=== PATIENT | female | born 1960 | race Caucasian/White ===

== ENCOUNTER 2018-08-28 15:25 | Emergency (ER) | payer OTHER ==
--- OUTSIDE RECORDS SUMMARY | 2018-08-28 15:28 | XMS REPORT | Clinical Summary ---
:1960 Author Organization [facility] Address [address] [place] [address] Care Team Providers Name Role Phone Samir Read MD Primary Care Provider Allergies Active Allergy Reactions Severity Noted Date Comments Iodine 11/26/2017 Methotrexate 11/26/2017 Sulfa (Sulfonamide Antibiotics) 11/26/2017 Medications Medication Sig Dispensed Refills Start End Status Date Date DULoxetine (CYMBALTA) 60 Take 1 capsule 30 capsule 11 11/27/19 Active MG capsuleIndications: (60 mg total) 18 019 Sjogren's syndrome with by mouth keratoconjunctivitis daily. sicca (HCC), Other chronic pain, Chronic left lumbar radiculopathy, Obesity (BMI 35.0-39.9 without comorbidity), Gastroesophageal reflux disease without esophagitis, Primary insomnia hydroxychloroquine Take 200 mg by 0 Active (PLAQUENIL) 200 mg mouth 2 (two) tablet times a day. diltiazem CD (CardIZEM Take 240 mg by 11 03/15/20 Active CD) 240 MG 24 hr capsule mouth daily. 18 traMADol (ULTRAM) 50 mg Take 50 mg by 0 Active tablet mouth every 6 (six) hours as needed for moderate pain. cyclobenzaprine TAKE 1 TABLET 2 03/02/20 Active (FLEXERIL) 10 mg tablet (10 MG TOTAL) 18 BY MOUTH NIGHTLY NEEDED FOR MUSCLE SPASMS FOR UP TO 90 DAYS. ondansetron ODT Take 1 tablet 21 tablet 0 05/04/20 Active (ZOFRAN-ODT) 4 MG sublingual 18 disintegrating tablet every 8 hrs for nausea x 7 days meloxicam (MOBIC) 15 mg TAKE 1 TABLET 90 tablet 1 06/02/20 Active tabletIndications: BY MOUTH EVERY 18 Sjogren's syndrome with DAY keratoconjunctivitis sicca (HCC), Other chronic pain, Chronic left lumbar radiculopathy, Obesity (BMI 35.0-39.9 without comorbidity), Gastroesophageal reflux disease without esophagitis, Primary insomnia zolpidem CR (AMBIEN CR) TAKE 1 TABLET 30 tablet 0 08/11/19 Active 12.5 MG CR BY MOUTH EVERY tabletIndications: DAY AT BEDTIME Sjogren's syndrome with NEEDED FOR keratoconjunctivitis SLEEP sicca (HCC), Other chronic pain, Chronic left lumbar radiculopathy, Obesity (BMI 35.0-39.9 without comorbidity), Gastroesophageal reflux disease without esophagitis, Primary insomnia diclofenac (VOLTAREN) 1 APPLY TO 100 g 2 08/12/19 Active % gelIndications: AFFECTED AREA 19 Sjogren's syndrome with 4 TIMES A DAY keratoconjunctivitis sicca (HCC), Other chronic pain, Chronic left lumbar radiculopathy, Obesity (BMI 35.0-39.9 without comorbidity), Gastroesophageal reflux disease without esophagitis, Primary insomnia ALPRAZolam (XANAX) 1 MG TAKE 1 TABLET 60 tablet 0 08/27/19 Active tablet BY MOUTH TWICE A DAY NEEDED FOR ANXIETY ALPRAZolam (XANAX) 1 MG Take 1 mg by 0 Discontinued tablet mouth. 1 tab 018 twice daily cyclobenzaprine Take 10 mg by 0 Discontinued (FLEXERIL) 10 mg tablet mouth. 018 hydroxychloroquine Take 200 mg by 0 Discontinued (PLAQUENIL) 200 mg mouth. 018 tablet hydroxychloroquine Take 1 tablet 60 tablet 2 11/27/19 Discontinued (PLAQUENIL) 200 mg (200 mg total) 018 tabletIndications: by mouth 2 Sjogren's syndrome with (two) times a keratoconjunctivitis day for 90 sicca (HCC), Other days. chronic pain, Chronic left lumbar radiculopathy, Obesity (BMI 35.0-39.9 without comorbidity), Gastroesophageal reflux disease without esophagitis, Primary insomnia cyclobenzaprine Take 1 tablet 30 tablet 2 11/27/19 Discontinued (FLEXERIL) 10 mg (10 mg total) 18 018 tabletIndications: by mouth Sjogren's syndrome with nightly as keratoconjunctivitis needed for sicca (HCC), Other muscle spasms chronic pain, Chronic for up to 90 left lumbar days. radiculopathy, Obesity (BMI 35.0-39.9 without comorbidity), Gastroesophageal reflux disease without esophagitis, Primary insomnia ALPRAZolam (XANAX) 1 MG Take 1 tablet 60 tablet 1 11/27/19 tabletIndications: (1 mg total) 18 018 Sjogren's syndrome with by mouth 2 keratoconjunctivitis (two) times a sicca (HCC), Other day as needed chronic pain, Chronic for anxiety left lumbar for up to 60 radiculopathy, Obesity days. 1 tab (BMI 35.0-39.9 without twice daily comorbidity), Gastroesophageal reflux disease without esophagitis, Primary insomnia zolpidem CR (AMBIEN CR) Take 1 tablet 30 tablet 1 11/27/19 Discontinued 12.5 MG CR (12.5 mg 18 018 tabletIndications: total) by Sjogren's syndrome with mouth nightly keratoconjunctivitis as needed for sicca (HCC), Other sleep for up chronic pain, Chronic to 60 days. left lumbar radiculopathy, Obesity (BMI 35.0-39.9 without comorbidity), Gastroesophageal reflux disease without esophagitis, Primary insomnia pilocarpine (SALAGEN, Take 1 tablet 90 tablet 11 11/27/19 Discontinued PILOCARPINE,) 5 MG (5 mg total) 18 018 tabletIndications: by mouth 3 Sjogren's syndrome with (three) times keratoconjunctivitis a day. sicca (HCC), Other chronic pain, Chronic left lumbar radiculopathy, Obesity (BMI 35.0-39.9 without comorbidity), Gastroesophageal reflux disease without esophagitis, Primary insomnia diclofenac (VOLTAREN) 1 Apply 100 g 2 11/27/19 Discontinued % gelIndications: topically 4 019 Sjogren's syndrome with (four) times a keratoconjunctivitis day. sicca (HCC), Other chronic pain, Chronic left lumbar radiculopathy, Obesity (BMI 35.0-39.9 without comorbidity), Gastroesophageal reflux disease without esophagitis, Primary insomnia traMADol (ULTRAM) 50 mg Take 1 tablet 120 tablet 1 11/27/19 tabletIndications: (50 mg total) 18 018 Sjogren's syndrome with by mouth every keratoconjunctivitis 6 (six) hours sicca (HCC), Other as needed for chronic pain, Chronic moderate pain left lumbar for up to 60 radiculopathy, Obesity days. (BMI 35.0-39.9 without comorbidity), Gastroesophageal reflux disease without esophagitis, Primary insomnia meloxicam (MOBIC) 15 mg Take 1 tablet 30 tablet 1 11/27/19 Discontinued tabletIndications: (15 mg total) 18 018 Sjogren's syndrome with by mouth daily keratoconjunctivitis for 60 days. sicca (HCC), Other chronic pain, Chronic left lumbar radiculopathy, Obesity (BMI 35.0-39.9 without comorbidity), Gastroesophageal reflux disease without esophagitis, Primary insomnia predniSONE (DELTASONE) 5 Take 1 tablet 20 tablet 0 11/27/19 mg tablet (5 mg total) 18 018 by mouth take as directed (Take 4-3-2-1 tabs in am with food for 2-2-2-2 days each dose) for up to 8 days. zolpidem CR (AMBIEN CR) TAKE 1 TABLET 30 tablet 0 01/28/20 Discontinued 12.5 MG CR BY MOUTH AT 18 018 tabletIndications: BEDTIME Sjogren's syndrome with NEEDED FOR keratoconjunctivitis SLEEP sicca (HCC), Other chronic pain, Chronic left lumbar radiculopathy, Obesity (BMI 35.0-39.9 without comorbidity), Gastroesophageal reflux disease without esophagitis, Primary insomnia meloxicam (MOBIC) 15 mg TAKE 1 TABLET 30 tablet 1 01/28/20 Discontinued tabletIndications: BY MOUTH EVERY 18 018 Sjogren's syndrome with DAY keratoconjunctivitis sicca (HCC), Other chronic pain, Chronic left lumbar radiculopathy, Obesity (BMI 35.0-39.9 without comorbidity), Gastroesophageal reflux disease without esophagitis, Primary insomnia zolpidem CR (AMBIEN CR) TAKE 1 TABLET 30 tablet 0 03/11/20 Discontinued 12.5 MG CR BY MOUTH EVERY 18 018 tabletIndications: DAY AT BEDTIME Sjogren's syndrome with NEEDED FOR keratoconjunctivitis SLEEP sicca (HCC), Other chronic pain, Chronic left lumbar radiculopathy, Obesity (BMI 35.0-39.9 without comorbidity), Gastroesophageal reflux disease without esophagitis, Primary insomnia predniSONE (DELTASONE) 5 Take 1 tablet 30 tablet 0 03/24/20 mg tabletIndications: (5 mg total) 18 018 Sjogren's syndrome with by mouth take keratoconjunctivitis as directed sicca (HCC) (Take 4-3-2-1 tabs in am with food for 3-3-3-3 days each dose) for up to 12 days. ALPRAZolam (XANAX) 1 MG TAKE 1 TABLET 1 03/02/20 Discontinued tablet BY MOUTH TWICE 18 018 A DAY NEEDED FOR ANXIETY acetaminophen-codeine Take 1 tablet 120 tablet 0 03/27/20 (TYLENOL WITH CODEINE by mouth every 018 #3) 300-30 mg per tablet 6 (six) hours as needed for moderate pain for up to 30 days. meloxicam (MOBIC) 15 mg TAKE 1 TABLET 30 tablet 1 03/30/20 Discontinued tabletIndications: BY MOUTH EVERY 18 018 Sjogren's syndrome with DAY keratoconjunctivitis sicca (HCC), Other chronic pain, Chronic left lumbar radiculopathy, Obesity (BMI 35.0-39.9 without comorbidity), Gastroesophageal reflux disease without esophagitis, Primary insomnia zolpidem CR (AMBIEN CR) TAKE 1 TABLET 30 tablet 0 04/14/20 Discontinued 12.5 MG CR BY MOUTH EVERY 18 018 tabletIndications: DAY AT BEDTIME Sjogren's syndrome with NEEDED FOR keratoconjunctivitis SLEEP sicca (HCC), Other chronic pain, Chronic left lumbar radiculopathy, Obesity (BMI 35.0-39.9 without comorbidity), Gastroesophageal reflux disease without esophagitis, Primary insomnia zolpidem CR (AMBIEN CR) Take 1 tablet 30 tablet 0 04/14/20 Discontinued 12.5 MG CR tablet (12.5 mg 18 018 total) by mouth nightly as needed for sleep for up to 30 days. hydroxychloroquine TAKE 1 TABLET 60 tablet 0 04/22/20 Discontinued (PLAQUENIL) 200 mg BY MOUTH TWICE 18 018 tabletIndications: A DAY Sjogren's syndrome with keratoconjunctivitis sicca (HCC), Other chronic pain, Chronic left lumbar radiculopathy, Obesity (BMI 35.0-39.9 without comorbidity), Gastroesophageal reflux disease without esophagitis, Primary insomnia zolpidem CR (AMBIEN CR) TAKE 1 TABLET 30 tablet 0 04/29/20 12.5 MG CR BY MOUTH AT 18 018 tabletIndications: BEDTIME Sjogren's syndrome with NEEDED FOR keratoconjunctivitis SLEEP sicca (HCC), Other chronic pain, Chronic left lumbar radiculopathy, Obesity (BMI 35.0-39.9 without comorbidity), Gastroesophageal reflux disease without esophagitis, Primary insomnia ALPRAZolam (XANAX) 1 MG TAKE 1 TABLET 60 tablet 0 04/29/20 Discontinued tablet BY MOUTH TWICE 18 018 A DAY NEEDED FOR ANXIETY hydroxychloroquine Take 1 tablet 180 tablet 0 05/11/20 (PLAQUENIL) 200 mg (200 mg total) 18 019 tabletIndications: by mouth 2 Sjogren's syndrome with (two) times a keratoconjunctivitis day for 90 sicca (HCC), Other days. chronic pain, Chronic left lumbar radiculopathy, Obesity (BMI 35.0-39.9 without comorbidity), Gastroesophageal reflux disease without esophagitis, Primary insomnia cyclobenzaprine Take 1 tablet 180 tablet 0 05/12/20 (FLEXERIL) 10 mg (10 mg total) 18 019 tabletIndications: by mouth 2 Sjogren's syndrome with (two) times a keratoconjunctivitis day as needed sicca (HCC), Other for muscle chronic pain, Chronic spasms for up left lumbar to 90 days. radiculopathy, Obesity (BMI 35.0-39.9 without comorbidity), Gastroesophageal reflux disease without esophagitis, Primary insomnia pilocarpine (SALAGEN, Take 1 tablet 270 tablet 3 05/25/20 PILOCARPINE,) 5 MG (5 mg total) 18 019 tabletIndications: by mouth 3 Sjogren's syndrome with (three) times keratoconjunctivitis a day for 90 sicca (HCC), Other days. chronic pain, Chronic left lumbar radiculopathy, Obesity (BMI 35.0-39.9 without comorbidity), Gastroesophageal reflux disease without esophagitis, Primary insomnia ALPRAZolam (XANAX) 1 MG TAKE 1 TABLET 60 tablet 0 07/02/20 Discontinued tablet BY MOUTH TWICE 18 019 A DAY NEEDED FOR ANXIETY zolpidem CR (AMBIEN CR) TAKE 1 TABLET 30 tablet 0 07/10/20 Discontinued 12.5 MG CR BY MOUTH EVERY 18 019 tabletIndications: DAY AT BEDTIME Sjogren's syndrome with NEEDED FOR keratoconjunctivitis SLEEP sicca (HCC), Other chronic pain, Chronic left lumbar radiculopathy, Obesity (BMI 35.0-39.9 without comorbidity), Gastroesophageal reflux disease without esophagitis, Primary insomnia Active Problems Problem Noted Date Bilateral hip joint arthritis 03/27/2018 Chronic pain of left knee 03/27/2018 Chronic pain in right foot 03/27/2018 Sjogren's syndrome with keratoconjunctivitis sicca 11/26/2017 Other chronic pain 11/26/2017 Chronic left lumbar radiculopathy 11/26/2017 Obesity (BMI 35.0-39.9 without comorbidity) 11/26/2017 Gastroesophageal reflux disease without esophagitis 11/26/2017 Primary insomnia 11/26/2017 Encounters Date Type Specialty Care Team Description 08/26/2018 Refill Rheumatology Tammi Liao MD 08/12/2018 Refill Rheumatology Tammi Liao Sjogren's syndrome with keratoconjunctivitis sicca (HCC); Other chronic pain; Chronic left lumbar radiculopathy; Obesity (BMI 35.0-39.9 without comorbidity); Gastroesophageal reflux disease without esophagitis; Primary insomnia 08/10/2018 Refill Rheumatology Tammi Liao Sjogren's syndrome with keratoconjunctivitis sicca (HCC); Other chronic pain; Chronic left lumbar radiculopathy; Obesity (BMI 35.0-39.9 without comorbidity); Gastroesophageal reflux disease without esophagitis; Primary insomnia 07/07/2018 Refill Rheumatology Tammi Liao, Sjogren's syndrome with keratoconjunctivitis sicca (HCC); Other chronic pain; Chronic left lumbar radiculopathy; Obesity (BMI 35.0-39.9 without comorbidity); Gastroesophageal reflux disease without esophagitis; Primary insomnia 06/29/2018 Refill Rheumatology Tammi Liao MD 06/02/2018 Refill Rheumatology Tammi Liao, Sjogren's syndrome with keratoconjunctivitis sicca (HCC); Other chronic pain; Chronic left lumbar radiculopathy; Obesity (BMI 35.0-39.9 without comorbidity); Gastroesophageal reflux disease without esophagitis; Primary insomnia 05/25/2018 Refill Rheumatology Dejan, Sjogren's syndrome with keratoconjunctivitis sicca (HCC); MALLORY Clarke Other chronic pain; Chronic left lumbar radiculopathy; Obesity (BMI 35.0-39.9 without comorbidity); Gastroesophageal reflux disease without esophagitis; Primary insomnia 05/12/2018 Refill Rheumatology Tammi Liao, Sjogren's syndrome with keratoconjunctivitis sicca (HCC); Other chronic pain; Chronic left lumbar radiculopathy; Obesity (BMI 35.0-39.9 without comorbidity); Gastroesophageal reflux disease without esophagitis; Primary insomnia 05/11/2018 Refill Rheumatology Dejan, Sjogren's syndrome with keratoconjunctivitis sicca (HCC); MALLORY Clarke Other chronic pain; Chronic left lumbar radiculopathy; Obesity (BMI 35.0-39.9 without comorbidity); Gastroesophageal reflux disease without esophagitis; Primary insomnia 05/04/2018 Refill Rheumatology Tricia Wylie MA 05/04/2018 Telephone Rheumatology Tricia Wylie MA 04/29/2018 Refill Rheumatology Tammi Liao MD 04/28/2018 Refill Rheumatology Tammi Liao, Sjogren's syndrome with keratoconjunctivitis sicca (HCC); Other chronic pain; Chronic left lumbar radiculopathy; Obesity (BMI 35.0-39.9 without comorbidity); Gastroesophageal reflux disease without esophagitis; Primary insomnia 04/22/2018 Refill Rheumatology Tammi Liao, Sjogren's syndrome with keratoconjunctivitis sicca (HCC); Other chronic pain; Chronic left lumbar radiculopathy; Obesity (BMI 35.0-39.9 without comorbidity); Gastroesophageal reflux disease without esophagitis; Primary insomnia 04/14/2018 Refill Rheumatology Tricia Wylie MA 04/13/2018 Refill Rheumatology Tammi Liao, Sjogren's syndrome with keratoconjunctivitis sicca; Other chronic pain; Chronic left lumbar radiculopathy; Obesity (BMI 35.0-39.9 without comorbidity); Gastroesophageal reflux disease without esophagitis; Primary insomnia 04/08/2018 Hospital Encounter Radiology Tammi Liao Sjogren's syndrome with keratoconjunctivitis sicca; Chronic left lumbar radiculopathy; Other chronic pain; Bilateral hip joint arthritis; Chronic pain of left knee; Chronic pain in right foot 04/08/2018 Hospital Encounter Radiology Tammi Liao, Sjogren's syndrome with keratoconjunctivitis sicca; Chronic left lumbar radiculopathy; Other chronic pain; Bilateral hip joint arthritis; Chronic pain of left knee; Chronic pain in right foot 04/08/2018 Hospital Encounter Radiology Tammi Liao Sjogren's syndrome with keratoconjunctivitis sicca; Chronic left lumbar radiculopathy; Other chronic pain; Bilateral hip joint arthritis; Chronic pain of left knee; Chronic pain in right foot 04/08/2018 Ancillary Procedure Tammi iLao, Sjogren's syndrome with keratoconjunctivitis sicca; Other chronic pain; Chronic left lumbar radiculopathy; Obesity (BMI 35.0-39.9 without comorbidity); Gastroesophageal reflux disease without esophagitis; Primary insomnia 04/08/2018 Refill Rheumatology Tricia Wylie MA 04/08/2018 Orders Only Rheumatology Dejan, Chronic pain of left knee MALLORY Clarke (Primary Dx) 03/29/2018 Refill Rheumatology Tammi Liao, Sjogren's syndrome with keratoconjunctivitis sicca; Other chronic pain; Chronic left lumbar radiculopathy; Obesity (BMI 35.0-39.9 without comorbidity); Gastroesophageal reflux disease without esophagitis; Primary insomnia 03/27/2018 Office Visit Rheumatology Mazin Tammi, Sjogren's syndrome with keratoconjunctivitis sicca (Primary Dx); Chronic left lumbar radiculopathy; Other chronic pain; Obesity (BMI 35.0-39.9 without comorbidity); Primary insomnia; Bilateral hip joint arthritis; Chronic pain of left knee; Chronic pain in right foot 03/27/2018 Documentation Rheumatology Makenna Wylie MA 03/24/2018 Orders Only Rheumatology IlTammi bear, Sjogren's syndrome with keratoconjunctivitis sicca (Primary Dx) 03/02/2018 Refill Rheumatology IlTammi bear, Sjogren's syndrome with keratoconjunctivitis sicca; Other chronic pain; Chronic left lumbar radiculopathy; Obesity (BMI 35.0-39.9 without comorbidity); Gastroesophageal reflux disease without esophagitis; Primary insomnia 02/09/2018 Telephone Endocrinology Jaymie Magallanes 01/23/2018 Refill Rheumatology IlchemaTammi, Sjogren's syndrome with keratoconjunctivitis sicca; Other chronic pain; Chronic left lumbar radiculopathy; Obesity (BMI 35.0-39.9 without comorbidity); Gastroesophageal reflux disease without esophagitis; Primary insomnia 01/21/2018 Refill Rheumatology IlchemaTammi, Sjogren's syndrome with keratoconjunctivitis sicca; Other chronic pain; Chronic left lumbar radiculopathy; Obesity (BMI 35.0-39.9 without comorbidity); Gastroesophageal reflux disease without esophagitis; Primary insomnia 11/26/2017 Lab Lab IlTammi bear, Sjogren's syndrome with keratoconjunctivitis sicca; Other chronic pain; Chronic left lumbar radiculopathy; Obesity (BMI 35.0-39.9 without comorbidity); Gastroesophageal reflux disease without esophagitis; Primary insomnia 11/26/2017 Office Visit Rheumatology IlchemaTammi, Sjogren's syndrome with keratoconjunctivitis sicca (Primary Dx); MD Other chronic pain; Chronic left lumbar radiculopathy; Obesity (BMI 35.0-39.9 without comorbidity); Gastroesophageal reflux disease without esophagitis; Primary insomnia after 08/27/2017 Family History Medical History Relation Name Comments Asthma Brother COPD Brother Hypertension Brother Lymphoma Mother Relation Name Status Comments Brother Alive Father Alive Mother Social History Tobacco Use Types Packs/Day Years Used Date Never Smoker Smokeless Tobacco: Never Used Alcohol Use Drinks/Week oz/Week Comments Yes Sex Assigned at Date Recorded Not on file Job Start Date Occupation Industry Not on file Not on file Not on file Travel History Travel Start Travel End No recent travel history available. Last Filed Vital Signs Vital Sign Reading Time Taken Blood Pressure 150/100 03/27/2018 9:25 AM CDT Pulse 80 03/27/2018 9:25 AM CDT Temperature 36.4 C (97.6 F) 03/27/2018 9:25 AM CDT Respiratory Rate - - Oxygen Saturation - - Inhaled Oxygen Concentration - - Weight 91.6 kg (202 lb) 03/27/2018 9:25 AM CDT Height 160 cm (5' 3") 03/27/2018 9:25 AM CDT Body Mass Index 35.78 03/27/2018 9:25 AM CDT Plan of Treatment Health Maintenance Due Date Last Done Comments CERVICAL CANCER SCREENING 1983 BREAST CANCER SCREENING 01/14/2012 COLON CANCER SCREENING 01/14/2012 SHINGLES VACCINES (1 of 2) 01/14/2012 INFLUENZA VACCINE 02/18/2018 Procedures Procedure Name Priority Date/Time Associated Diagnosis Comments MRI LUMBAR SPINE WO Routine 04/08/2018 Sjogren's syndrome with Results for CONTRAST 5:54 PM CDT keratoconjunctivitis sicca this procedure Chronic left lumbar are in the radiculopathy results Other chronic pain section. Bilateral hip joint arthritis Chronic pain of left knee Chronic pain in right foot XR HIPS BILATERAL AP Routine 04/08/2018 Sjogren's syndrome with Results for LATERAL W AP PELVIS 5:05 PM CDT keratoconjunctivitis sicca this procedure Chronic left lumbar are in the radiculopathy results Other chronic pain section. Bilateral hip joint arthritis Chronic pain of left knee Chronic pain in right foot XR LUMBAR SPINE 2 OR Routine 04/08/2018 Sjogren's syndrome with Results for 3 VW 5:04 PM CDT keratoconjunctivitis sicca this procedure Chronic left lumbar are in the radiculopathy results Other chronic pain section. Bilateral hip joint arthritis Chronic pain of left knee Chronic pain in right foot BONE DENSITY Routine 04/08/2018 Sjogren's syndrome with Results for 4:08 PM CDT keratoconjunctivitis sicca this procedure (HCC) are in the Other chronic pain results Chronic left lumbar section. radiculopathy Obesity (BMI 35.0-39.9 without comorbidity) Gastroesophageal reflux disease without esophagitis Primary insomnia INTERPRETATION Routine 11/26/2017 Results for (REFLEX QUEST) 12:27 PM CDT this procedure are in the results section. RQEZ RNA POLYMERASE Routine 11/26/2017 Results for III (NOT ORDERABLE) 12:27 PM CDT this procedure are in the results section. CENTROMERE B ANTIBODY Routine 11/26/2017 Results for (NOT ORDERABLE) 12:27 PM CDT this procedure are in the results section. SCL-70 ANTIBODY Routine 11/26/2017 Results for 12:27 PM CDT this procedure are in the results section. ANTINUCLEAR Routine 11/26/2017 Results for ANTIBODIES TITER AND 12:27 PM CDT this procedure PATTERN are in the results section. DRU SCREEN, IFA (NOT Routine 11/26/2017 Results for ORDERABLE) 12:27 PM CDT this procedure are in the results section. HEPATITIS C ANTIBODY Routine 11/26/2017 Sjogren's syndrome with Results for 12:27 PM CDT keratoconjunctivitis sicca this procedure Other chronic pain are in the Chronic left lumbar results radiculopathy section. Obesity (BMI 35.0-39.9 without comorbidity) Gastroesophageal reflux disease without esophagitis Primary insomnia HEPATITIS B SURFACE Routine 11/26/2017 Sjogren's syndrome with Results for ANTIGEN 12:27 PM CDT keratoconjunctivitis sicca this procedure Other chronic pain are in the Chronic left lumbar results radiculopathy section. Obesity (BMI 35.0-39.9 without comorbidity) Gastroesophageal reflux disease without esophagitis Primary insomnia HEPATITIS B CORE Routine 11/26/2017 Sjogren's syndrome with Results for ANTIBODY IGM 12:27 PM CDT keratoconjunctivitis sicca this procedure Other chronic pain are in the Chronic left lumbar results radiculopathy section. Obesity (BMI 35.0-39.9 without comorbidity) Gastroesophageal reflux disease without esophagitis Primary insomnia RPR SCREEN Routine 11/26/2017 Sjogren's syndrome with Results for 12:27 PM CDT keratoconjunctivitis sicca this procedure Other chronic pain are in the Chronic left lumbar results radiculopathy section. Obesity (BMI 35.0-39.9 without comorbidity) Gastroesophageal reflux disease without esophagitis Primary insomnia HISTONE AB, IGG Routine 11/26/2017 Sjogren's syndrome with Results for 12:27 PM CDT keratoconjunctivitis sicca this procedure Other chronic pain are in the Chronic left lumbar results radiculopathy section. Obesity (BMI 35.0-39.9 without comorbidity) Gastroesophageal reflux disease without esophagitis Primary insomnia C4 COMPLEMENT Routine 11/26/2017 Sjogren's syndrome with Results for COMPONENT 12:27 PM CDT keratoconjunctivitis sicca this procedure Other chronic pain are in the Chronic left lumbar results radiculopathy section. Obesity (BMI 35.0-39.9 without comorbidity) Gastroesophageal reflux disease without esophagitis Primary insomnia C3 COMPLEMENT Routine 11/26/2017 Sjogren's syndrome with Results for COMPONENT 12:27 PM CDT keratoconjunctivitis sicca this procedure Other chronic pain are in the Chronic left lumbar results radiculopathy section. Obesity (BMI 35.0-39.9 without comorbidity) Gastroesophageal reflux disease without esophagitis Primary insomnia SSA/SSB ANTIBODY Routine 11/26/2017 Sjogren's syndrome with Results for 12:27 PM CDT keratoconjunctivitis sicca this procedure Other chronic pain are in the Chronic left lumbar results radiculopathy section. Obesity (BMI 35.0-39.9 without comorbidity) Gastroesophageal reflux disease without esophagitis Primary insomnia RIBONUCLEIC ANTIBODY Routine 11/26/2017 Sjogren's syndrome with Results for (JEWELRY CUTTER) 12:27 PM CDT keratoconjunctivitis sicca this procedure Other chronic pain are in the Chronic left lumbar results radiculopathy section. Obesity (BMI 35.0-39.9 without comorbidity) Gastroesophageal reflux disease without esophagitis Primary insomnia CYCLIC CITRULLINATED Routine 11/26/2017 Sjogren's syndrome with Results for PEPTIDE AB, IGG 12:27 PM CDT keratoconjunctivitis sicca this procedure Other chronic pain are in the Chronic left lumbar results radiculopathy section. Obesity (BMI 35.0-39.9 without comorbidity) Gastroesophageal reflux disease without esophagitis Primary insomnia RHEUMATOID FACTOR Routine 11/26/2017 Sjogren's syndrome with Results for 12:27 PM CDT keratoconjunctivitis sicca this procedure Other chronic pain are in the Chronic left lumbar results radiculopathy section. Obesity (BMI 35.0-39.9 without comorbidity) Gastroesophageal reflux disease without esophagitis Primary insomnia DNA AB SCREEN Routine 11/26/2017 Sjogren's syndrome with Results for 12:27 PM CDT keratoconjunctivitis sicca this procedure Other chronic pain are in the Chronic left lumbar results radiculopathy section. Obesity (BMI 35.0-39.9 without comorbidity) Gastroesophageal reflux disease without esophagitis Primary insomnia VITAMIN D 25 HYDROXY Routine 11/26/2017 Sjogren's syndrome with Results for LEVEL 12:27 PM CDT keratoconjunctivitis sicca this procedure Other chronic pain are in the Chronic left lumbar results radiculopathy section. Obesity (BMI 35.0-39.9 without comorbidity) Gastroesophageal reflux disease without esophagitis Primary insomnia URINALYSIS, AUTOMATED Routine 11/26/2017 Sjogren's syndrome with Results for WITH MICROSCOPY 12:27 PM CDT keratoconjunctivitis sicca this procedure Other chronic pain are in the Chronic left lumbar results radiculopathy section. Obesity (BMI 35.0-39.9 without comorbidity) Gastroesophageal reflux disease without esophagitis Primary insomnia T4, FREE Routine 11/26/2017 Sjogren's syndrome with Results for 12:27 PM CDT keratoconjunctivitis sicca this procedure Other chronic pain are in the Chronic left lumbar results radiculopathy section. Obesity (BMI 35.0-39.9 without comorbidity) Gastroesophageal reflux disease without esophagitis Primary insomnia THYROID STIMULATING Routine 11/26/2017 Sjogren's syndrome with Results for HORMONE 12:27 PM CDT keratoconjunctivitis sicca this procedure Other chronic pain are in the Chronic left lumbar results radiculopathy section. Obesity (BMI 35.0-39.9 without comorbidity) Gastroesophageal reflux disease without esophagitis Primary insomnia SEDIMENTATION RATE Routine 11/26/2017 Sjogren's syndrome with Results for 12:27 PM CDT keratoconjunctivitis sicca this procedure Other chronic pain are in the Chronic left lumbar results radiculopathy section. Obesity (BMI 35.0-39.9 without comorbidity) Gastroesophageal reflux disease without esophagitis Primary insomnia C-REACTIVE PROTEIN Routine 11/26/2017 Sjogren's syndrome with Results for 12:27 PM CDT keratoconjunctivitis sicca this procedure Other chronic pain are in the Chronic left lumbar results radiculopathy section. Obesity (BMI 35.0-39.9 without comorbidity) Gastroesophageal reflux disease without esophagitis Primary insomnia COMPREHENSIVE Routine 11/26/2017 Sjogren's syndrome with Results for METABOLIC PANEL 12:27 PM CDT keratoconjunctivitis sicca this procedure Other chronic pain are in the Chronic left lumbar results radiculopathy section. Obesity (BMI 35.0-39.9 without comorbidity) Gastroesophageal reflux disease without esophagitis Primary insomnia CBC WITH PLATELET AND Routine 11/26/2017 Sjogren's syndrome with Results for DIFFERENTIAL 12:27 PM CDT keratoconjunctivitis sicca this procedure Other chronic pain are in the Chronic left lumbar results radiculopathy section. Obesity (BMI 35.0-39.9 without comorbidity) Gastroesophageal reflux disease without esophagitis Primary insomnia CARY ANTIBODY Routine 11/26/2017 Sjogren's syndrome with Results for 12:27 PM CDT keratoconjunctivitis sicca this procedure Other chronic pain are in the Chronic left lumbar results radiculopathy section. Obesity (BMI 35.0-39.9 without comorbidity) Gastroesophageal reflux disease without esophagitis Primary insomnia SERUM ELECTROPHORESIS Routine 11/26/2017 Sjogren's syndrome with Results for 12:27 PM CDT keratoconjunctivitis sicca this procedure Other chronic pain are in the Chronic left lumbar results radiculopathy section. Obesity (BMI 35.0-39.9 without comorbidity) Gastroesophageal reflux disease without esophagitis Primary insomnia after 08/27/2017 Results MRI Lumbar Spine Wo Contrast (04/08/2018 5:54 PM CDT) Narrative Performed At EXAMINATION:MRI LUMBAR SPINE WO CONTRAST [facility] CLINICAL HISTORY:M35.01 Sicca syndrome with keratoconjunctivitis, M54.16 Radiculopathylumbar region, [id number] conservative tx persistent sx COMPARISON:Lumbar spine radiographs dated April 08, 2018 TECHNIQUE: Multiplanar MRI imaging withoutIV Gadolinium was performed. FINDINGS: There is minimal anterior translation of L4 on L5 level. Vertebral bodies are preserved. There is a focal benign fat-containing hemangioma in the posterior aspect of T12 vertebral body otherwise the Bon e marrow is unremarkable with no evidence of acute fracture or suspicious marrow-replacing lesion. Intervertebral disc spaces are relatively preserved. The distal spinal cord appears unremarkable. The conus medullaris terminates at the L1-L2 level and appears unremarkable. The cauda equina is unremarkable. L1-2: Unremarkable L2-3: Diffuse disc bulge with superimposed the left subarticular and foraminal shallow disc protrusion with associated moderate left lateral recess narrowing contacting the traversing left L3 nerve root . There is no associated significant left foraminal narrowing. The right foramen is patent. There is no canal stenosis. L3-4: Minimal bilateral facet arthropathy. No canal stenosis or foramina narrowing. L4-5: Significant bilateral facet arthropathy with ligamentous thickening and diffuse disc bulge. There is minimal anterior translation of L4 on L5 level. There is moderate canal stenosis with moderate severe bilateral lateral recess narrowing. There is no foraminal narrowing. L5-S1: Diffuse disc bulge asymmetric to the left foraminal and extraforaminal region with associated left facet arthropathy. There is no canal stenosis. There is moderate to severe left foraminal narrow ing with potential mass effect on the exiting left L5 nerve root. Bilateral renal cortical cysts are appreciated. IMPRESSION: Multifactorial spondylotic moderate canal stenosis with moderate to severe bilateral lateral recess narrowing at L4-L5 level. Spondylotic moderate severe left foraminal narrowing at L5-S1 level with potential mass effect on the exiting left L5 nerve root. [id number] Procedure Note Hm Interface, Radiology Results - 04/08/2018 6:13 PM CDT EXAMINATION: MRI LUMBAR SPINE WO CONTRAST CLINICAL HISTORY: M35.01 Sicca syndrome with keratoconjunctivitis, M54.16 Radiculopathy lumbar region, Radiculopathy 6wks conservative tx persistent sx COMPARISON: Lumbar spine radiographs dated April 08, 2018 TECHNIQUE: Multiplanar MRI imaging without IV Gadolinium was performed. FINDINGS: There is minimal anterior translation of L4 on L5 level. Vertebral bodies are preserved. There is a focal benign fat-containing hemangioma in the posterior aspect of T12 vertebral body otherwise the Bone marrow is unremarkable with no evidence of acute fracture or suspicious marrow-replacing lesion. Intervertebral disc spaces are relatively preserved. The distal spinal cord appears unremarkable. The conus medullaris terminates at the L1-L2 level and appears unremarkable. The cauda equina is unremarkable. L1-2: Unremarkable L2-3: Diffuse disc bulge with superimposed the left subarticular and foraminal shallow disc protrusion with associated moderate left lateral recess narrowing contacting the traversing left L3 nerve root. There is no associated significant left foraminal narrowing. The right foramen is patent. There is no canal stenosis. L3-4: Minimal bilateral facet arthropathy. No canal stenosis or foramina narrowing. L4-5: Significant bilateral facet arthropathy with ligamentous thickening and diffuse disc bulge. There is minimal anterior translation of L4 on L5 level. There is moderate canal stenosis with moderate severe bilateral lateral recess narrowing. There is no foraminal narrowing. L5-S1: Diffuse disc bulge asymmetric to the left foraminal and extraforaminal region with associated left facet arthropathy. There is no canal stenosis. There is moderate to severe left foraminal narrowing with potential mass effect on the exiting left L5 nerve root. Bilateral renal cortical cysts are appreciated. IMPRESSION: Multifactorial spondylotic moderate canal stenosis with moderate to severe bilateral lateral recess narrowing at L4-L5 level. Spondylotic moderate severe left foraminal narrowing at L5-S1 level with potential mass effect on the exiting left L5 nerve root. 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 IMPRESSION: Catheter, possibly from gastric lap band, partially visualized left mid abdomen. No acute fracture or dislocation identified. Degenerative change in the SI joints and pubic symphysis, mild to moderate, and mild bilateral hip OA, fairly symmetric. 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 IMPRESSION: Catheter, possibly from gastric lap band, partially visualized left mid abdomen. No acute fracture or dislocation identified. Degenerative change in the SI joints and pubic symphysis, mild to moderate, and mild bilateral hip OA, fairly symmetric. [facility]-[id number] Performing Organization Address City/State/Zipcode Phone Number [facility] [address] [place] [address] XR Lumbar Spine 2 Or 3 Vw (04/08/2018 5:04 PM CDT) Narrative Performed At EXAMINATION: XR LUMBAR SPINE 2 OR 3 VW [facility] CLINICAL HISTORY: M35.01 Sicca syndrome with keratoconjunctivitis, M54.16 Radiculopathylumbar region, Back [id number] conservative txpersistent sx COMPARISON:None IMPRESSION: Frontal and lateral views of the lumbar spine were obtained. There is 3 mm anterolisthesis of L4. There is mild 2 mm retrolisthesis of T12 and 4 mm retrolisthesis of L1. There is 3 mm retrolisthesis of L3. Vertebral body heights are preserved. There is no scoliosis. Sacrum is intact. There is mild disc space narrowing at L5-S1. There is facet hypertrophy at L4-5 and L5-S1. A lap band device is noted in the abdomen. Partially imaged upper pelvic bones are intact. Visualized lower thoracic spine shows osteophytosis. No acute osseous abnormality identified. 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 There is 3 mm anterolisthesis of L4. There is mild 2 mm retrolisthesis of T12 and 4 mm retrolisthesis of L1. There is 3 mm retrolisthesis of L3. Vertebral body heights are preserved. There is no scoliosis. Sacrum is intact. There is mild disc space narrowing at L5-S1. There is facet hypertrophy at L4-5 and L5-S1. A lap band device is noted in the abdomen. Partially imaged upper pelvic bones are intact. Visualized lower thoracic spine shows osteophytosis. No acute osseous abnormality identified. [id number] Performing Organization Address City/State/Zipcode Phone Number [facility] [address] [place] [address] Bone Density (04/08/2018 4:08 PM CDT) Narrative Performed At [facility] [address], [place] [place] [address] Bone Density Report Name: Jaymie Schultz Sex: Female Age: 58 Ethnicity: White Height: 61.5 in Referring Provider: TAMMI LIAO Date of : 1960 Weight: 200.0 lb Indication: Postmenopausal; screening for osteoporosis; parental hip fracture; prior fracture; rheumatoid arthritis Accession number: [id number] Bone Density: Exam date 04/08/2018 Region BMD (g/cm2) T-score Z-score Classification AP Spine(L1, L4) 0.879 -1.4 -0.3 Osteopenia Femoral Neck(Left) 0.593 -2.3 -1.2 Osteopenia Total Hip(Left) 0.837 -0.9 -0.1 Normal Femoral Neck(Right) 0.660 -1.7 -0.6 Osteopenia Total Hip(Right) 0.847 -0.80.0 Normal Total Hip Mean 0.842 -0.9 -0.1 Normal World Health Organization criteria for BMD impression classify patients as Normal (T-score at or above 1.0), Osteopenia (T-score between 1.0 and 2.5), or Osteoporosis (T-score at or below 2.5). 10-year Fracture Risk: Major Osteoporotic Fracture 29% Hip Fracture 1.7% Reported Risk Factors: [place] (), T-score(WHO)=-1.7, BMI=37.2, previous fracture, parental fracture, rheumatoid arthritis FRAX Version 3.08. Fracture probability calculated for an untreated patient. Fracture probability may be lower if the patient has received treatment. Impression: Prior lap band surgery L1 and L4 were used for analysis. The patient has low bone mass, based on the Left Femoral Neck T-score. The patient has an estimated ten-year risk of hip fracture of 1.7% and an elevated estimated ten-year risk of major fracture of 29%, based on the WHO FRAX algorithm for a patient not on therapy (NOF thresholds are 20% for a major fracture and 3% for a hip fracture). The patient has risk factors, including: parental hip fracture, previous fracture. Discussion: BONE DENSITY IS LOW AT ONE OR MORE SKELETAL SITES. THE PATIENT'S BMD AND CLINICAL RISK FACTORS CONTRIBUTE TO THIS PATIENT'S INCREASED RISK OF FRACTURE. This patient's lowest T-score is low at one or more skeletal sites.It meets the World Health Organization's (WHO) criteria for low bone mass (T-score between -1.0 and -2.5). The patient's 10-year risk of a major osteoporotic fracture as calculated by FRAX exceeds the threshold where pharmacological therapy is recommended by the National Osteoporosis Foundation (NOF).However, all treatment decisions require clinical judgment and consideration of individual patient factors, including patient preferences, comorbidities, previous drug use, risk factors not captured in the FRAX model (e.g., frailty, falls, vitamin D deficiency, increased bone turnover, interval significant decline in bone density) and possible under or overestimation of fracture risk by FRAX. The patient should follow a healthful lifestyle (good nutrition with adequate calcium and vitamin D, and appropriate weight-bearing exercise). Follow-Up: Consider a repeat BMD and Vertebral Fracture Assessment (VFA) exam in 1-2 years or sooner if medically necessary, to reassess this patient's status. Reported by: Tanvir Shin MD, PHYLLIS, MACE, FACP, CCD on 04/27/2018 7:26:00 AM. Performing Organization Address City/State/Zipcode Phone Number GN [id number] [address] [place] [address] RQEZ RNA POLYMERASE III (NOT ORDERABLE) (11/26/2017 12:27 PM CDT) RNA polymerase III <20 <20 Units [facility] [place] [employer]UDIE [facility] Resulting Agency Comment Performing Organization Information: Site ID: [id number] Name: [employer]/Judie [facility], Address: [address] [place] [phone] Director: Vanessa Raza MD,PhD,ANDRE Performing Organization Address City/[facility]/Zipcode Phone Number [employer] [address] [place], [place] [phone] [facility] INTERPRETATION (REFLEX [facility]) (11/26/2017 12:27 PM CDT) Interpretation SEE NOTE [facility] Comment: [facility] Thirty percent to 60% of patients with systemic sclerosis have Scl-70 (anti-topoisomerase antibodies), anti-centromere B antibodies, and/or anti-RNA polymerase III antibodies. Current [place] [employer] classification criteria for systemic sclerosis includes antibodies to Scl-70, centromere and RNA polymerase III. Scl-70 antibody positivity is found in 20-60% of patients with diffuse cutaneous scleroderma, and 31-36% of Scl-70 antibody patients have limited scleroderma. Scl-70 positivity is associated with scleroderma pulmonary disease. Centromere B antibody positivity is found in 64-95% of patients with a limited form of cutaneous systemic sclerosis ; patients may present with "CREST" syndrome, a complex of subcutaneous calcinosis, Raynaud's phenomenon, esophageal dysmotility, sclerodactyly, and telangiectasias. Scl-70 and centromere B antibodies are almost mutually exclusive, being present simultaneously in less than 0.5% of patients with systemic sclerosis. The rare patient with both antibodies typically has diffuse subcutaneous sclerosis and features of CREST. RNA polymerase III antibodies are >99% specific for systemic sclerosis and are associated with diffuse cutaneous disease and high risk for scleroderma renal crisis, but a low incidence of severe pulmonary fibrosis. While absence of these antibodies does not rule out a diagnosis of scleroderma, consideration should be given to diseases associated with the other autoantibody markers included in the DRU IFA screen. Resulting Agency Comment Performing Organization Information: Site ID: [id number] Name: [employer] [facility], Address: [id number] [place] [phone] Director: Vanessa Raza MD,PhD,ANDRE Performing Organization Address City/[facility]/Zipcode Phone Number [employer]/[facility]IMAS [address] [place], [place] [phone] [facility] CENTROMERE B ANTIBODY (11/26/2017 12:27 PM CDT) Centromere antibody <1.0 NEG <1.0 NEGATIVE AI [facility] Resulting Agency Comment Performing Organization Information: Site ID: EZ Name: [employer]/[facility], Address: [address] [place] [phone] Director: Vanessa Raza MD,PhD,ANDRE Performing Organization Address [facility] Phone Number [facility]IM[facility] [address] [place] [phone] [facility] Scl-70 antibody (11/26/2017 12:27 PM CDT) Scleroderma SCL-70 Ab <1.0 NEG <1.0 NEGATIVE [facility] Resulting Agency Comment Performing Organization Information: Site ID: EZ Name: [employer], Address: [address] [place] [phone] Director: Vanessa Raza MD,PhD,ANDRE Performing Organization Address [facility] Phone Number [facility] [employer]/[facility] [address] [facility] DRU SCREEN, IFA (11/26/2017 12:27 PM CDT) DRU screen POSITIVE (A) NEGATIVE [facility] Comment: DRU IFA is a first line screen for detecting the presence of up to approximately 150 autoantibodies in various autoimmune diseases. A positive DRU IFA result is suggestive of autoimmune disease and reflexes to titer and pattern. Further laboratory testing may be considered if clinically indicated. Visit Physician FAQs for interpretation of all antibodies in the [place], prevalence, and association with diseases at http://education.[employer]/faq/JOV892 Resulting Agency Comment Performing Organization Information: Site ID: EZ Name: [employer] [facility], Address: [address] [place] [phone] Director: Vanessa Raza MD,PhD,ANDRE Performing Organization Address [facility]/Zipcode Phone Number [facility]/[place] [address] [place] [phone] [facility] Cary antibody (11/26/2017 12:27 PM CDT) Cary antibody <1.0 NEG <1.0 NEG AI [employer] II Specimen Blood Resulting Agency Comment Performing Organization Information: Site ID: [id number] Name: [facility] Address: [address] [place] [phone] Director: Dr. Eyal Garcia Performing Organization Address [facility] Phone Number [phone] [address] Ribonucleic antibody (JEWELRY CUTTER) (11/26/2017 12:27 PM CDT) Ribonucleic antibody (JEWELRY CUTTER) <1.0 NEG <1.0 NEG AI [employer] II Specimen Blood Resulting Agency Comment Performing Organization Information: Site ID: IG Name: [facility] Address: [address] [place] [phone] Director: Dr. Eyal Garcia Performing Organization Address [facility] Phone Number [phone] [address] ANTINUCLEAR ANTIBODIES TITER AND PATTERN (11/26/2017 12:27 PM CDT) DRU titer 1:320 (H) titer [facility] Comment: Reference Ranges for Anti-Nuclear Ab Titer: <1:40Negative 1:40-1:80Low Antibody Level >1:80Elevated Antibody Level DRU pattern HOMOGENEOUS [facility] Comment: Homogeneous pattern is associated with systemic lupus erythematosus (SLE), drug-induced lupus and juvenile idiopathic arthritis. Resulting Agency Comment Performing Organization Information: Site ID: EZ Name: [employer]/[facility] [facility], Address: [address] [place] [phone] Director: Vanessa Raza MD,PhD,ANDRE Performing Organization Address City/[facility] Centercode Phone Number [facility] [employer] [address] [place] [phone] [facility] SSA/SSB antibody (11/26/2017 12:27 PM CDT) Sjogren's SS-A antibody 4.5 POS (A) <1.0 NEG AI [facility] II Sjogren's SS-B antibody <1.0 NEG <1.0 NEG AI [facility] II Specimen Blood Resulting Agency Comment Performing Organization Information: Site ID: IG Name: [facility] Address: [address] [place] [phone] Director: Dr. Eyal Garcia Performing Organization Address [facility] Centercode Phone Number [employer] [address] Histone Ab, IgG (11/26/2017 12:27 PM CDT) Histone Ab 7.9 (H) U [employer] Comment: Reference Ranges for Histone Antibodies: <1.0 Negative 1.0-1.5Weak Positive 1.6-2.5Moderate Positive >2.5 Strong Positive Specimen Blood Resulting Agency Comment Performing Organization Information: Site ID: EZ Name: [employer]/[facility], Address: [address] [place] [phone] Director: Vanessa Raza MD,PhD,ANDRE Performing Organization Address [facility] Centercode Phone Number [facility] [address] [address] [facility] DNA Ab screen (11/26/2017 12:27 PM CDT) DNA ds antibody 386 (H) IU/mL [employer] II Comment: IU/mL Interpretation < or=4Negative 5-9 Indeterminate > or=10 Positive Specimen Blood Resulting Agency Comment Performing Organization Information: Site ID: IG Name: [facility] [facility] Address: [address] [place] [address], [place] [address] [address]: [address] Eyal Garcia Performing Organization Address City/[facility] Cent[facility]ode Phone Number [facility] [address] Hepatitis C antibody (11/26/2017 12:27 PM CDT) Hepatitis C Ab NON-REACTIVE NON-REACTIVE [facility] [place] Signal/cutoff 0.01 <1.00 [facility] [place] Specimen Blood Resulting Agency Comment Performing Organization Information: Site ID: RGA Name: [facility] Address: [address] [place] [phone] Director: Mona Menon Performing Organization Address City/[facility] Centercode Phone Number [employer] [address] [address] Cyclic citrullinated peptide antibody, IgG (11/26/2017 12:27 PM CDT) Cyclic citrullin peptide <16 UNITS [facility] Ab Comment: II Reference Range Negative:<20 Weak Positive: 20-39 Moderate Positive: 40-59 Strong Positive: >59 Specimen Blood Resulting Agency Comment Performing Organization Information: Site ID: IG Name: [facility] Lab Address: [address] [place] [phone] Director: Dr. Eyal Garcia Performing Organization Address [facility] Centercode Phone Number [address] [address] Hepatitis B core antibody IgM (11/26/2017 12:27 PM CDT) Hepatitis B core IgM NON-REACTIVE NON-REACTIVE [employer] [facility] Specimen Blood Resulting Agency Comment Performing Organization Information: Site ID: RGA Name: [facility] Address: [address] [place] [phone] Director: Mona Menon Performing Organization Address [facility] Centercode Phone Number [employer] [address] [address] Vitamin D 25 hydroxy level (11/26/2017 12:27 PM CDT) Vitamin D, 25-hydroxy 26 (L) 30 - 100 ng/mL [facility] Comment: [place] Vitamin D Status 25-OH Vitamin D: Deficiency:<20 ng/mL Insufficiency: 20 - 29 ng/mL Optimal: > or=30 ng/mL For 25-OH Vitamin D testing on patients on D2-supplementation and patients for whom quantitation of D2 and D3 fractions is required, the QuestAssureD(TM) 25-OH VIT D, (D2,D3), LC/MS/MS is recommended: order code 90411 (patients >2yrs). For more information on this test, go to: http://education.Searchbox/faq/NYD101 (This link is being provided for informational/educational purposes only.) Specimen Blood Resulting Agency Comment Performing Organization Information: Site ID: [facility] Name: [facility] Address: [address] [place] [phone] Director: Mona Menon Performing Organization Address [facility] Centercode [place] [address] RPR screen (11/26/2017 12:27 PM CDT) RPR (monitor) w/refl titer NON-REACTIVE NON-REACTIVE [facility] [place] Specimen Blood Resulting Agency Comment Performing Organization Information: Site ID: A Name: [facility] Address: [address] [place] [phone] Director: Mona Menon Performing Organization Address [facility] Centercofl [place] [address] Hepatitis B surface antigen (11/26/2017 12:27 PM CDT) Hepatitis B surface Ag NON-REACTIVE NON-REACTIVE [facility] [place] Specimen Blood Resulting Agency Comment Performing Organization Information: Site ID: RGA Name: [facility] Address: [address] [place] [phone] Director: Mona Menon Performing Organization Address [facility] Centercode Phone Number [employer] [address] [address] Urinalysis, automated with microscopy (11/26/2017 12:27 PM CDT) Color, UA YELLOW YELLOW [facility] [place] Appearance CLEAR CLEAR [facility] [place] Specific gravity, urine 1.015 1.001 - 1.035 [facility] [place] pH, urine 6.0 5.0 - 8.0 [facility] [place] Glucose, urine NEGATIVE NEGATIVE [facility] [place] Bilirubin, UA NEGATIVE NEGATIVE [facility] [place] Ketones, UA NEGATIVE NEGATIVE [facility] [place] Occult blood, urine NEGATIVE NEGATIVE [facility] [place] Protein, UA NEGATIVE NEGATIVE [facility] [place] Nitrite, UA NEGATIVE NEGATIVE [facility] [place] Leukocyte esterase, UA NEGATIVE NEGATIVE [facility] [place] WBC, UA NONE SEEN < OR=5 /HPF [facility] [place] RBC, UA NONE SEEN < OR=2 /HPF [facility] [place] Squamous epithelial cells, UA NONE SEEN < OR=5 /HPF [facility] [place] Bacteria, UA NONE SEEN NONE SEEN /HPF [facility] [place] Hyaline casts, UA NONE SEEN NONE SEEN /LPF [facility] [place] Specimen Urine Resulting Agency Comment Performing Organization Information: Site ID: A Name: [facility] Address: [address] [place] [phone] Director: Mona Menon Performing Organization Address [facility] Phone Number [employer] [address] [address] Sedimentation rate (11/26/2017 12:27 PM CDT) Sedimentation rate 9 < OR=30 mm/h [facility] [place] Specimen Blood Resulting Agency Comment Performing Organization Information: Site ID: A Name: [facility] Address: [address] [place] [phone] Director: Mona Menon Performing Organization Address [facility] Phone Number [employer] [address] [address] CBC with platelet and differential (11/26/2017 12:27 PM CDT) WBC 7.4 3.8 - 10.8 Thousand/uL [facility] [place] RBC 4.75 3.80 - 5.10 Million/uL [facility] [place] HGB 14.1 11.7 - 15.5 g/dL [facility] [place] HCT 41.1 35.0 - 45.0 % [facility] [place] MCV 86.5 80.0 - 100.0 fL [facility] [employer] [place] MCH 29.7 27.0 - 33.0 pg [facility] [place] MCHC 34.3 32.0 - 36.0 g/dL [facility] [place] RDW 12.5 11.0 - 15.0 % [facility] [place] Platelet count 113 (L) 140 - 400 Thousand/uL [facility] [place] MPV 14.0 (H) 7.5 - 12.5 fL [facility] [place] Neutrophils, absolute 4,314 1,500 - 7,800 cells/uL [facility] [place] Lymphocytes, absolute 2,479 850 - 3,900 cells/uL [facility] [place] Monocytes, absolute 422 200 - 950 cells/uL [facility] Eosinophils, absolute 148 15 - 500 cells/uL [facility] [place] Basophils, absolute 37 0 - 200 cells/uL [facility] [place] Neutrophils 58.3 % [employer] [facility] Lymphocytes 33.5 % [employer] [facility] Monocytes 5.7 % [employer] [facility] Eosinophils 2.0 % [facility] [place] Basophils + RC 0.5 % [facility] [place] Specimen Blood Resulting Agency Comment Performing Organization Information: Site ID: RGA Name: [facility] Address: [address] [place] [phone] Director: Mona Menon Performing Organization Address [facility] Centercofl Phone Number [employer] [address] [address] Rheumatoid factor (11/26/2017 12:27 PM CDT) Rheumatoid factor <14 <14 IU/mL [facility] [employer] [place] Specimen Blood Resulting Agency Comment Performing Organization Information: Site ID: RGA Name: [facility] Address: [address] [place] [phone] Director: Mona Menon Performing Organization Address [facility] Phone Number [employer] [address] [address] C3 complement component (11/26/2017 12:27 PM CDT) C3 complement 171 83 - 193 mg/dL [facility] [employer] [place] Specimen Blood Resulting Agency Comment Performing Organization Information: Site ID: RGA Name: [facility] Address: [address] [place] [phone] Director: Mona Menon Performing Organization Address [facility] Centercode Phone Number [employer] [address] [address] C4 complement component (11/26/2017 12:27 PM CDT) C4 complement 15 15 - 57 mg/dL [facility] [place] Specimen Blood Resulting Agency Comment Performing Organization Information: Site ID: RGA Name: [facility] Address: [address] [place] [phone] Director: Mona Menon Performing Organization Address [facility] Centercode Phone Number [facility] [address] [address] C-reactive protein (11/26/2017 12:27 PM CDT) CRP 7.0 <8.0 mg/L [facility] [place] Specimen Blood Resulting Agency Comment Performing Organization Information: Site ID: RGA Name: [facility] Address: [address] [place] [phone] Director: Mona Menon Performing Organization Address [facility] [place] [address] Thyroid stimulating hormone (11/26/2017 12:27 PM CDT) TSH 2.52 mIU/L [facility] [place] Comment: Reference Range > or=20 Years0.40-4.50 Ranges First trimester0.26-2.66 Second trimester 0.55-2.73 Third trimester0.43-2.91 Specimen Blood Resulting Agency Comment Performing Organization Information: Site ID: RGA Name: [facility] Address: [address] [place] [phone] Director: Mona Menon Performing Organization Address [facility] [place] [address] T4, free (11/26/2017 12:27 PM CDT) T4, free 1.4 0.8 - 1.8 ng/dL [facility] [place] Specimen Blood Resulting Agency Comment Performing Organization Information: Site ID: RGA Name: [facility] Address: [address] [place] [phone] Director: Mona Menon Performing Organization Address [facility] Centercofl [place] [address] Serum electrophoresis (11/26/2017 12:27 PM CDT) Protein 7.5 6.1 - 8.1 g/dL [facility] Albumin, S 4.4 3.8 - 4.8 g/dL [facility] Qiqgm-9-unvvfogf 0.3 0.2 - 0.3 g/dL [facility] Lxacc-3-nwrbbhdw 0.9 0.5 - 0.9 g/dL [facility] Beta-1 globulin 0.5 0.4 - 0.6 g/dL [employer] II Beta-2 globulin 0.4 0.2 - 0.5 g/dL [employer]KV[facility] II Gamma, CSF 1.0 0.8 - 1.7 g/dL [facility] II Interpretation [facility] Comment: [place] [employer] II Normal Electrophoretic Pattern Specimen Blood Resulting Agency Comment Performing Organization Information: Site ID: IG Name: [facility] Address: [address] [place] [phone] Director: Dr. Eyal Garcia Performing Organization Address City/State/Zipcode Phone Number [facility] [address] Comprehensive metabolic panel (11/26/2017 12:27 PM CDT) Glucose 92 65 - 99 mg/dL [facility] Comment: [place] Fasting reference interval BUN, whole blood 12 7 - 25 mg/dL [employer] [facility] Creatinine 0.62 0.50 - 1.05 [facility] Comment: mg/dL [place] For patients >49 years of age, the reference limit for Creatinine is approximately 13% higher for people identified as -Filipino. EGFR Non-Afr. Filipino 102 > OR=60 [facility] mL/min/1.73m2 [place] EGFR 118 > OR=60 [facility] mL/min/1.73m2 [place] BUN/creatinine ratio NOT APPLICABLE 6 - 22 (calc) [employer] [facility] Sodium 139 135 - 146 mmol/L [facility] [place] Potassium 4.2 3.5 - 5.3 mmol/L [facility] [place] Chloride 104 98 - 110 mmol/L [facility] [place] CO2 29 20 - 31 mmol/L [employer] [facility] Calcium 9.6 8.6 - 10.4 mg/dL [employer] [facility] Protein 7.1 6.1 - 8.1 g/dL [employer] [facility] Albumin, S 4.4 3.6 - 5.1 g/dL [employer] [facility] Globulin, total 2.7 1.9 - 3.7 g/dL [facility] (calc) [place] Albumin/globulin ratio 1.6 1.0 - 2.5 (calc) [facility] [place] Total bilirubin 0.5 0.2 - 1.2 mg/dL [facility] [place] Alkaline phosphatase 69 33 - 130 U/L [facility] [place] AST 22 10 - 35 U/L [facility] [place] ALT 27 6 - 29 U/L [facility] [place] Specimen Blood Resulting Agency Comment Performing Organization Information: Site ID: RGEmma Name: [facility] Address: [address] [place] [phone] Director: Mona Menon Performing Organization Address City/State/Zipcode Phone Number [facility] [place] [address] [place] [address] after 08/27/2017 Insurance Payer Benefit Plan / Group Subscriber ID Type Phone Address [employer]ET[employer] AET[employer] PPO OPEN CHOICE xxxxxxxxxx PPO Advance Directives Patient has advance care planning documents on file. For more information, please contact:Raul Kasper[address] [place] [address]
[2018-08-28 16:01] LABS: Urine Blood NEGATIVE (NEG); Urine Glucose NEGATIVE (NEG); Urine Protein NEGATIVE (NEG); Urine Specific Gravity 1.005 (1.005-1.030)
[2018-08-28 16:41] LABS: Absolute Monocytes 0.5 K/uL (0.1-1.3); Absolute Neutrophil 4.1 K/uL (1.8-8.0); Eosinophils % 2.3 % (0-4.4); Hematocrit 41.1 % (36.0-45.0); Lymphocytes % 29.1 % (15.3-44.8); MPV 10.8 fL (7.6-11.3); Monocytes % 7.8 % (3.3-12.3); RBC Red Blood Cell Count 4.53 M/uL (3.86-4.86)
[2018-08-28 16:42] LABS: Protime INR 1.02
[2018-08-28 16:56] LABS: ALT/SGPT 30 U/L (12-78); AST/SGOT 22 U/L (15-37); Albumin 4.1 g/dL (3.4-5.0); Alkaline Phosphatase 70 U/L (45-117); BUN Blood Urea Nitrogen 10 mg/dL (7-18); Bicarbonate 29 mmol/L (21-32); Bilirubin Direct 0.1 mg/dL (0-0.2); Bilirubin Total 0.5 mg/dL (0.2-1.0); Glucose Level 97 mg/dL (74-106); NT PRO-BNP 35 pg/mL (<125); Potassium 3.9 mmol/L (3.5-5.1); Protein, Total 7.4 g/dL (6.4-8.2); Sodium Level 141 mmol/L (136-145); Troponin (Emerg Dept Use Only) < 0.02 ng/mL (0.0-0.045)
--- NOTE | 2018-08-28 16:59 | RAD REPORT ---
EXAM DESCRIPTION: RAD - Chest Single View - 08/28/2018 4:24 pm CLINICAL HISTORY: Chest pain COMPARISON: May 2017 TECHNIQUE: AP portable chest image was obtained 1621 hours . FINDINGS: Lung volumes are low. Large body habitus further accentuates chest findings. Acute lung pa renchymal process is not suspected. No significant failure or volume overload. Heart and vasculature are normal. No measurable pleural effusion and no pneumothorax. No acute bony abnormality seen. No acute aortic findings suspected. IMPRESSION: Limited portable study without acute cardiopulmonary finding. No significant interval change.
--- NOTE | 2018-08-28 17:13 | RAD REPORT ---
EXAM DESCRIPTION: CT - Head Brain Wo Cont - 08/28/2018 5:05 pm CLINICAL HISTORY: Headache, altered speech pattern COMPARISON: CT head May 2015 TECHNIQUE: Axial 5 mm thick images of the head were obtained without IV contrast. All CT scans are performed using dose optimization technique as appropriate and may include automated exposure control or mA/KV adjustment according to patient size. FINDINGS: No intracranial hemorrhage, mass, edema or shift of mid-line structures. No acute infarcti on changes seen. No abnormal extra-axial fluid collections. Ventricles are normal. Intracranial findi ngs are not clearly different from the comparison. Mastoid air cells and visualized portions of the paranasal sinuses are clear. No acute bony findings. IMPRESSION: Negative noncontrast CT head for acute findings. No significant interval change.
--- NOTE | 2018-08-28 17:44 | RAD REPORT ---
EXAM DESCRIPTION: US - Extrem Venous W Compress Ruben - 08/28/2018 5:39 pm CLINICAL HISTORY: Bilateral leg pain and swelling COMPARISON: None. TECHNIQUE: Real-time sonographic evaluation of the bilateral lower extremity common femoral, superfi cial femoral, popliteal and posterior tibial veins was performed. FINDINGS: Normal compressibility, flow augmentation, phasic flow and spontaneous flow are identified in the left and right lower extremity common femoral, superficial femoral, popliteal and posterior t ibial veins. No intraluminal filling defects seen. IMPRESSION: No DVT in either lower extremity.
--- NOTE | 2018-08-28 19:34 | ER ---
Nurse's Notes [facility] Name: Jaymie Schultz Age: 58 yrs Sex: Female : 1960 Arrival Date: 08/28/2018 Time: 15:28 Bed 26 Private MD: Samir Read Diagnosis: Aphasia-resolved;Chest pain, unspecified Presentation: 08/28 15:33 Presenting complaint: Patient states: BLE swelling, right foot "black and blue" sv bruising noted to right ankle (denies injury), SOB, chest pain that is worse in the evenings, cheeks flushed started today. Transition of care: patient was not received from another setting of care. Onset of symptoms was August 28, 2018. Care prior to arrival: None. 15:33 Method Of Arrival: Ambulatory sv 15:33 Acuity: HOLLEY 2 sv 16:36 Risk Assessment: Do you want to hurt yourself or someone else? Patient reports no mg2 desire to harm self or others. Initial Sepsis Screen: Does the patient meet any 2 criteria? No. Patient's initial sepsis screen is negative. Does the patient have a suspected source of infection? No. Patient's initial sepsis screen is negative. Triage Assessment: 15:35 General: Appears in no apparent distress. Behavior is calm, cooperative, appropriate sv for age. Neuro: Level of Consciousness is awake, alert, obeys commands, Oriented to person, place, time, situation, Gait is steady, Speech is normal. Respiratory: Respiratory effort is even, unlabored, Respiratory pattern is regular, symmetrical. 16:38 Pain: Complains of pain in chest. Respiratory: Reports shortness of breath at rest the mg2 patient has mild shortness of breath. Respiratory: Breath sounds are clear Onset: The symptoms/episode began/occurred gradually. Historical: - Allergies: 15:33 Iodine; sv 15:33 Levofloxacin; sv 15:33 METHOTREXATE AND DERIVATIVES; sv 15:33 Sulfa (Sulfonamide Antibiotics); sv - Home Meds: 16:37 alprazolam 1 mg Oral tab twice a day [Active]; cyclobenzaprine 10 mg Oral tab 1 tab 2 mg2 times per day [Active]; diltiazem HCl 240 mg Oral cpER 1 cap once daily [Active]; hydroxychloroquine 200 mg Oral tab 2 times per day [Active]; zolpidem 12.5 mg Oral TbMP 1 tab once daily [Active]; - PMHx: 15:33 A fib with RVR; Atrial Fib; Hypertension; Lupus; Rheumatoid Arthritis; sjorgens sv syndrome; 15:34 CVA; sv - PSHx: 15:33 R foot reconstruction; Cholecystectomy; L clavicle; R knee; lap band; sv 15:39 L knee; sv - Immunization history:: Flu vaccine status is unknown. - Social history:: Smoking status: unknown. - Ebola Screening: : No symptoms or risks identified at this time. Screenin:10 Abuse screen: Denies threats or abuse. Denies injuries from another. Nutritional mg2 screening: No deficits noted. Tuberculosis screening: No symptoms or risk factors identified. Fall Risk IV access (20 points). 19:41 Patient has been NPO before screening. The patient is alert, able to follow commands. mg2 The patient does not exhibit slurred or garbled speech The patient is not exhibiting difficulty speaking. The patient does not exhibit difficulty understanding words. The patient is able to swallow own secretions with no drooling or need for suction. Patient tolerated one teaspoon of water. No drooling, immediate coughing, gurgling, or clearing of the throat was noted. The patient tolerated 90mL of water. No drooling, immediate coughing, gurgling, or clearing of the throat was noted. Assessment: 16:08 Reassessment: discussed the case with dr dalal regarding possible stroke and if to mg2 call for code stroke. he said if the symptoms are resolved, no need to call for code. 16:39 Respiratory: Airway is patent Respiratory effort is even, unlabored. mg2 16:39 General: Appears in no apparent distress. comfortable, Behavior is calm, cooperative. mg2 Pain: Complains of pain in chest Pain does not radiate. Pain currently is 5 out of 10 on a pain scale. Quality of pain is described as aching, Pain began gradually, Is intermittent. Neuro: Level of Consciousness is awake, alert, obeys commands, Oriented to person, place, time, situation, Reports blurred vision in both eyes since 1200 noon but resolved already lip drooping but resolved \\T\\ 1200 noon today. Cardiovascular: Reports chest pain, shortness of breath, Rhythm is atrial fibrillation. Respiratory: Breath sounds are clear bilaterally. in right upper lobe and left upper lobe. GI: No signs and/or symptoms were reported involving the gastrointestinal system. : No signs and/or symptoms were reported regarding the genitourinary system. EENT: No signs and/or symptoms were reported regarding the EENT system. Derm: Bruising that is dark purple, on right foot. Musculoskeletal: Circulation, motion, and sensation intact. Capillary refill < 3 seconds, Swelling present in right leg. 19:39 Reassessment: Patient appears in no apparent distress at this time. Patient and/or mg2 family updated on plan of care and expected duration. Pain level reassessed. Patient is alert, oriented x 3, equal unlabored respirations, skin warm/dry/pink. patient informed about the plan for transfer,. patient agreed. 22:47 Reassessment: patient informed about the waiting time of the transfer. mg2 23:27 Reassessment: report called to REBECCA Brito of [facility]. mg2 Vital Signs: 15:34 BP 144 / 110 RA Sitting (auto/lg); Pulse 87; Resp 20; Temp 98.8; Pulse Ox 98% ; Weight sv 81.65 kg; Height 5 ft. 2 in. (157.48 cm); Pain 7/10; 16:42 BP 138 / 64; Pulse 80; Resp 18; Pulse Ox 99% on R/A; Pain 4/10; mg2 18:13 Pulse 73; Resp 18; Pulse Ox 96% on R/A; mg2 22:46 BP 112 / 69; Pulse 77; Pulse Ox 90% on R/A; mg2 02/09 00:09 BP 110 / 70; Pulse 80; Resp 18; Pulse Ox 95% on R/A; Pain 0/10; mg2 02/08 15:34 Body Mass Index 32.92 (81.65 kg, 157.48 cm) sv 02/08 22:46 patient is sleeping mg2 NIH Stroke Scale Scores: 16:10 NIHSS Score: 0 mg2 16:52 NIHSS Score: 0 cp ED Course: 15:28 Patient arrived in ED. sb2 15:29 Samir Read MD is Private Physician. sb2 15:34 Triage completed. sv 15:34 Arm band placed on. sv 15:49 Guido Yung, REBECCA is Primary Nurse. mg2 16:24 Troy Plascencia PA is PHCP. cp 16:24 José Antonio Dalal MD is Attending Physician. cp 16:26 XRAY Chest (1 view) In Process Unspecified. EDMS 16:36 No provider procedures requiring assistance completed. Inserted saline lock: 20 gauge mg2 in right antecubital area, using aseptic technique. Blood collected. 16:38 Patient has correct armband on for positive identification. stroke coordinator on. Pulse mg2 ox on. NIBP on. Door closed. Warm blanket given. 16:[address] vr 16:54 EKG done, by edger technician. reviewed by Troy FANG. sm3 17:05 CT Head Brain wo Cont In Process Unspecified. EDMS 17:40 US Extremity Venous W Compression Ruben In Process Unspecified. EDMS 17:47 initiated a transfer with Kendal at the [facility]. 08/29 00:08 Patient transferred, IV remains in place. mg2 Administered Medications: 08/28 19:39 Drug: Aspirin Chewable Tablet 324 mg Route: PO; mg2 21:25 Follow up: Response: No adverse reaction mg2 19:39 Drug: foLIC Acid 1 mg Route: IVPB; Site: right antecubital; mg2 21:25 Follow up: Response: No adverse reaction; IV Status: Completed infusion mg2 21:24 Drug: Benadryl 12.5 mg Route: IVP; Site: right antecubital; mg2 22:57 Follow up: Response: No adverse reaction; Marked relief of symptoms mg2 21:25 Drug: Reglan 10 mg Route: IVP; Site: right antecubital; mg2 22:58 Follow up: Response: No adverse reaction; Marked relief of symptoms mg2 21:25 Drug: TORadol 30 mg Route: IVP; Site: right antecubital; mg2 22:57 Follow up: Response: No adverse reaction; Marked relief of symptoms mg2 21:26 Drug: NS 0.9% 500 ml Route: IV; Rate: bolus; Site: right antecubital; mg2 22:57 Follow up: Response: No adverse reaction; IV Status: Completed infusion mg2 Outcome: 19:34 ER care complete, transfer ordered by . cp 08/29 00:09 Transferred by ground EMS to [facility], Transfer form completed. mg2 Condition: stable Instructed on the need for transfer, Demonstrated understanding of instructions. 00:10 Patient left the ED. mg2 NIH Stroke Scale - NIH Stroke Score Date: 08/28/2018 Time: 16:10 Total Score = 0 1a. Level of Consciousness (LOC) - 0(Alert) 1b. Level of Consciousness (LOC) (Year \\T\\ Age) - 0(Both) 1c. LOC Commands (Open \\T\\ Closes Eyes/Motor Vehicle Lecturer) - 0(Both) 2. Best Gaze (Lateral Gaze Paresis) - 0(Normal) 3. Visual Field Loss - 0(No visual loss) 4. Facial Palsy - 0(Normal) 5a. Left Arm: Motor (10-second hold) - 0(No drift) 5b. Right Arm: Motor (10-second hold) - 0(No drift) 6a. Left Leg: Motor (5-second hold - always test supine) - 0(No drift) 6b. Right Leg: Motor (5-second hold - always test supine) - 0(No drift) 7. Limb Ataxia (finger/nose \\T\\ heel/kamara - test with eyes open) - 0(Absent) 8. Sensory Loss (pinprick arms/legs/face) - 0(Normal) 9. Best Language: Aphasia (description/naming/reading) - 0(No aphasia) 10. Dysarthria (speech clarity - read or repeat words) - 0(Normal) 11. Extinction and Inattention (visual/tactile/auditory/spatial/personal) - 0(No abnormality) Initials: mg2 NIH Stroke Scale - NIH Stroke Score Date: 08/28/2018 Time: 16:52 Total Score = 0 1a. Level of Consciousness (LOC) - 0(Alert) 1b. Level of Consciousness (LOC) (Year \\T\\ Age) - 0(Both) 1c. LOC Commands (Open \\T\\ Closes Eyes/Motor Vehicle Lecturer) - 0(Both) 2. Best Gaze (Lateral Gaze Paresis) - 0(Normal) 3. Visual Field Loss - 0(No visual loss) 4. Facial Palsy - 0(Normal) 5a. Left Arm: Motor (10-second hold) - 0(No drift) 5b. Right Arm: Motor (10-second hold) - 0(No drift) 6a. Left Leg: Motor (5-second hold - always test supine) - 0(No drift) 6b. Right Leg: Motor (5-second hold - always test supine) - 0(No drift) 7. Limb Ataxia (finger/nose \\T\\ heel/kamara - test with eyes open) - 0(Absent) 8. Sensory Loss (pinprick arms/legs/face) - 0(Normal) 9. Best Language: Aphasia (description/naming/reading) - 0(No aphasia) 10. Dysarthria (speech clarity - read or repeat words) - 0(Normal) 11. Extinction and Inattention (visual/tactile/auditory/spatial/personal) - 0(No abnormality) Initials: cp Signatures: Dispatcher [employer] EDLorri Smith RN RN sv Magda King Corey, PA PA cp [place] sb2 Aubrie Shook Michele, RN RN mg2 Emelyn Lawson sm3 Corrections: (The following items were deleted from the chart) 08/28 15:38 15:33 Presenting complaint: Patient states: BLE swelling, foot "black and sv blue", cheeks flushed sv 15:38 15:34 81.65 kg; Height 5 ft. 2 in.; BMI: 32.9; sv sv 15:40 15:33 Acuity: HOLLEY 3 sv sv 15:40 15:34 Pulse 87bpm; Resp 22bpm; Pulse Ox 98%; Temp 98.8F; 81.65 kg; Height 5 ft. sv 2 in.; BMI: 32.9; Pain 7/10; sv 16:47 16:39 Neuro: Level of Consciousness is awake, alert, obeys commands, Oriented mg2 to person, place, time, situation, mg2
--- NOTE | 2018-08-28 19:34 | EDPHYS ---
Physician Documentation [facility] Name: Jaymie Schultz Age: 58 yrs Sex: Female : 1960 Arrival Date: 08/28/2018 Time: 15:28 Bed 26 Private MD: Samir Read ED Physician José Antonio Sutton HPI: 08/28 16:45 This 58 yrs old Female presents to ER via Ambulatory with complaints of Leg cp Pain, Shortness Of Breath, Flushed. 16:45 The patient's problem is reported as aphasia. Onset: The symptoms/episode cp began/occurred today, at 15:00. Duration: This was a single incident. Associated signs and symptoms: Pertinent positives: chest pain, headache, shortness of breath, right leg swelling and pain. Historical: - Allergies: 15:33 Iodine; sv 15:33 Levofloxacin; sv 15:33 METHOTREXATE AND DERIVATIVES; sv 15:33 Sulfa (Sulfonamide Antibiotics); sv - Home Meds: 16:37 alprazolam 1 mg Oral tab twice a day [Active]; cyclobenzaprine 10 mg Oral tab 1 tab 2 mg2 times per day [Active]; diltiazem HCl 240 mg Oral cpER 1 cap once daily [Active]; hydroxychloroquine 200 mg Oral tab 2 times per day [Active]; zolpidem 12.5 mg Oral TbMP 1 tab once daily [Active]; - PMHx: 15:33 A fib with RVR; Atrial Fib; Hypertension; Lupus; Rheumatoid Arthritis; sjorgens sv syndrome; 15:34 CVA; sv - PSHx: 15:33 R foot reconstruction; Cholecystectomy; L clavicle; R knee; lap band; sv 15:39 L knee; sv - Immunization history:: Flu vaccine status is unknown. - Social history:: Smoking status: unknown. - Ebola Screening: : No symptoms or risks identified at this time. ROS: 16:50 Constitutional: Negative for body aches, chills, fever, poor PO intake. cp 16:50 ENT: Negative for injury, pain, and discharge. cp 16:50 Eyes: Positive for blurry vision, Negative for discharge, pain, redness, vision loss. 16:50 Neck: Negative for pain with movement, pain at rest, rash, stiffness. 16:50 Cardiovascular: Positive for chest pain, Negative for edema, palpitations. 16:50 Respiratory: Negative for cough, shortness of breath, wheezing. 16:50 Abdomen/GI: Negative for abdominal pain, nausea, vomiting, and diarrhea, black/tarry stool, rectal bleeding. 16:50 : Negative for urinary symptoms. 16:50 Skin: Negative for cellulitis, rash. 16:50 Neuro: Positive for headache, weakness, history of aphasia, history of facial droop, Negative for altered mental status, seizure activity, syncope. 16:50 All other systems are negative. Exam: 16:40 ECG was reviewed by the Attending Physician. cp 17:20 Radiologist reports: no acute findings cp 17:20 Head/Face: Normocephalic, atraumatic. Eyes: Pupils equal round and reactive to light, cp extra-ocular motions intact. Lids and lashes normal. Conjunctiva and sclera are non-icteric and not injected. Cornea within normal limits. Periorbital areas with no swelling, redness, or edema. ENT: Nares patent. No nasal discharge, no septal abnormalities noted. Tympanic membranes are normal and external auditory canals are clear. Oropharynx with no redness, swelling, or masses, exudates, or evidence of obstruction, uvula midline. Mucous membranes moist. Neck: Trachea midline, no thyromegaly or masses palpated, and no cervical lymphadenopathy. Supple, full range of motion without nuchal rigidity, or vertebral point tenderness. No Meningismus. Chest/axilla: Normal chest wall appearance and motion. Nontender with no deformity. No lesions are appreciated. 17:20 Constitutional: The patient appears in no acute distress, alert, awake, non-diaphoretic, non-toxic, well developed, well nourished. 17:20 Cardiovascular: Rate: normal, Rhythm: regular, Heart sounds: murmur, not appreciated, rub, not appreciated, gallop, not appreciated, Edema: ankle edema, that is mild, JVD: is not appreciated. 17:20 Respiratory: the patient does not display signs of respiratory distress, Respirations: normal, no use of accessory muscles, no retractions, no splinting, labored breathing, is not present, Breath sounds: are clear throughout, no decreased breath sounds, no stridor, no wheezing. 17:20 Abdomen/GI: Inspection: abdomen appears normal, Bowel sounds: active, all quadrants, cp Palpation: abdomen is soft and non-tender, in all quadrants, rebound tenderness, is not appreciated, voluntary guarding, is not appreciated, involuntary guarding, is not appreciated. 17:20 Back: pain, is absent, ROM is normal. 17:20 Musculoskeletal/extremity: DVT Exam: pain, that is mild, of the right leg, of the left cp leg, swelling, that is mild, of the right leg, tenderness, that is mild, of the right leg, of the left leg. 17:20 Skin: cellulitis, is not appreciated, no rash present. 17:20 Neuro: Orientation: to person, place \T\ time. Mentation: is normal, Cerebellar function: Romberg testing is negative, normal finger to nose testing, heel to kamara testing is normal, Motor: moves all fours, strength is normal, Sensation: no obvious gross deficits. Vital Signs: 15:34 BP 144 / 110 RA Sitting (auto/lg); Pulse 87; Resp 20; Temp 98.8; Pulse Ox 98% ; Weight sv 81.65 kg; Height 5 ft. 2 in. (157.48 cm); Pain 7/10; 16:42 BP 138 / 64; Pulse 80; Resp 18; Pulse Ox 99% on R/A; Pain 4/10; mg2 18:13 Pulse 73; Resp 18; Pulse Ox 96% on R/A; mg2 22:46 BP 112 / 69; Pulse 77; Pulse Ox 90% on R/A; mg2 08/29 00:09 BP 110 / 70; Pulse 80; Resp 18; Pulse Ox 95% on R/A; Pain 0/10; mg2 08/28 15:34 Body Mass Index 32.92 (81.65 kg, 157.48 cm) sv 08/28 22:46 patient is sleeping mg2 NIH Stroke Scale Scores: 16:10 NIHSS Score: 0 mg2 16:52 NIHSS Score: 0 cp MDM: 08/27 18:00 Data reviewed: vital signs, nurses notes, lab test result(s), EKG, radiologic studies, cp CT scan, plain films. 18:00 Test interpretation: by ED physician or midlevel provider: ECG, plain radiologic cp studies. 08/28 16:24 Patient medically screened. cp 22:01 Physician consultation: was contacted at 21:50, regarding regarding transfer, DR Green, hospitalist services for [facility], will accept patient as transfer. 08/28 15:55 Order name: Urine Dipstick--Ancillary (enter results); Complete Time: 16:48 eb 08/28 16:07 Order name: Basic Metabolic Panel; Complete Time: 16:58 mg2 08/28 16:58 Interpretation: Normal except: GFR 80. cp 08/28 16:07 Order name: CBC with Diff mg2 02 16:58 Interpretation: PLT 94. cp 08/28 16:07 Order name: LFT's; Complete Time: 16:58 mg2 08/28 16:07 Order name: Magnesium; Complete Time: 16:58 mg2 08/28 16:07 Order name: NT PRO-BNP; Complete Time: 16:58 mg2 08/28 16:07 Order name: PT-INR; Complete Time: 16:58 mg2 08/28 16:07 Order name: Troponin (emerg Dept Use Only); Complete Time: 16:58 mg2 08/28 16:07 Order name: XRAY Chest (1 view); Complete Time: 17:15 mg2 08/28 16:48 Order name: US Extremity Venous W Compression Ruben; Complete Time: 17:51 cp 08/28 17:51 Interpretation: Report reviewed. cp 08/28 16:49 Order name: CT Head Brain wo Cont; Complete Time: 17:15 cp 08/28 17:16 Interpretation: Report reviewed. cp 08/28 22:02 Order name: CBC Smear Scan EDMS 08 16:07 Order name: EKG; Complete Time: 16:08 mg2 08/28 16:07 Order name: Cardiac monitoring; Complete Time: 16:36 mg2 08/28 16:07 Order name: EKG - Nurse/Tech; Complete Time: 16:36 mg2 08/28 16:07 Order name: IV Saline Lock; Complete Time: 16:36 mg2 08 16:07 Order name: Labs collected and sent; Complete Time: 16:36 mg2 08/28 16:07 Order name: O2 Per Protocol; Complete Time: 16:36 mg2 08/28 16:07 Order name: O2 Sat Monitoring; Complete Time: 16:36 mg2 EC:40 Rate is 73 beats/min. Rhythm is regular. IA interval is normal. QRS interval is normal. cp QT interval is normal. T waves are Inverted in lead III. Interpreted by me. Reviewed by me. Administered Medications: 19:39 Drug: Aspirin Chewable Tablet 324 mg Route: PO; mg2 21:25 Follow up: Response: No adverse reaction mg2 19:39 Drug: foLIC Acid 1 mg Route: IVPB; Site: right antecubital; mg2 21:25 Follow up: Response: No adverse reaction; IV Status: Completed infusion mg2 21:24 Drug: Benadryl 12.5 mg Route: IVP; Site: right antecubital; mg2 22:57 Follow up: Response: No adverse reaction; Marked relief of symptoms mg2 21:25 Drug: Reglan 10 mg Route: IVP; Site: right antecubital; mg2 22:58 Follow up: Response: No adverse reaction; Marked relief of symptoms mg2 21:25 Drug: TORadol 30 mg Route: IVP; Site: right antecubital; mg2 22:57 Follow up: Response: No adverse reaction; Marked relief of symptoms mg2 21:26 Drug: NS 0.9% 500 ml Route: IV; Rate: bolus; Site: right antecubital; mg2 22:57 Follow up: Response: No adverse reaction; IV Status: Completed infusion mg2 Disposition: 08/28/18 19:34 Transfer ordered to [facility]. Diagnosis are Aphasia - resolved, Chest pain, unspecified. - Reason for transfer: Higher level of care. - Accepting physician is DR Quintero. - Condition is Stable. - Problem is new. - Symptoms have improved. NIH Stroke Scale - NIH Stroke Score Date: 08/28/2018 Time: 16:10 Total Score = 0 1a. Level of Consciousness (LOC) - 0(Alert) 1b. Level of Consciousness (LOC) (Year \T\ Age) - 0(Both) 1c. LOC Commands (Open \T\ Closes Eyes/Prosthetic Dentist) - 0(Both) 2. Best Gaze (Lateral Gaze Paresis) - 0(Normal) 3. Visual Field Loss - 0(No visual loss) 4. Facial Palsy - 0(Normal) 5a. Left Arm: Motor (10-second hold) - 0(No drift) 5b. Right Arm: Motor (10-second hold) - 0(No drift) 6a. Left Leg: Motor (5-second hold - always test supine) - 0(No drift) 6b. Right Leg: Motor (5-second hold - always test supine) - 0(No drift) 7. Limb Ataxia (finger/nose \T\ heel/kamara - test with eyes open) - 0(Absent) 8. Sensory Loss (pinprick arms/legs/face) - 0(Normal) 9. Best Language: Aphasia (description/naming/reading) - 0(No aphasia) 10. Dysarthria (speech clarity - read or repeat words) - 0(Normal) 11. Extinction and Inattention (visual/tactile/auditory/spatial/personal) - 0(No abnormality) Initials: [facility] NIH Stroke Scale - NIH Stroke Score Date: 08/28/2018 Time: 16:52 Total Score = 0 1a. Level of Consciousness (LOC) - 0(Alert) 1b. Level of Consciousness (LOC) (Year \T\ Age) - 0(Both) 1c. LOC Commands (Open \T\ Closes Eyes/Prosthetic Dentist) - 0(Both) 2. Best Gaze (Lateral Gaze Paresis) - 0(Normal) 3. Visual Field Loss - 0(No visual loss) 4. Facial Palsy - 0(Normal) 5a. Left Arm: Motor (10-second hold) - 0(No drift) 5b. Right Arm: Motor (10-second hold) - 0(No drift) 6a. Left Leg: Motor (5-second hold - always test supine) - 0(No drift) 6b. Right Leg: Motor (5-second hold - always test supine) - 0(No drift) 7. Limb Ataxia (finger/nose \T\ heel/kamara - test with eyes open) - 0(Absent) 8. Sensory Loss (pinprick arms/legs/face) - 0(Normal) 9. Best Language: Aphasia (description/naming/reading) - 0(No aphasia) 10. Dysarthria (speech clarity - read or repeat words) - 0(Normal) 11. Extinction and Inattention (visual/tactile/auditory/spatial/personal) - 0(No abnormality) Initials: cp Addendum: 08/31/2018 07:43 Co-signature as Attending Physician, José Antonio Sutton MD I agree with the [facility] assessment and plan of care. Signatures: Dispatcher [employer] Lorri Damico RN RN sv Rittger, Kevin, MD MD [facility] Troy Plascencia PA PA cp [place], Michele, RN RN mg2 Corrections: (The following items were deleted from the chart) 08/28 21:50 19:34 08/28/2018 19:34 Transfer ordered to [facility]. cp Diagnosis is Aphasia - resolved; Chest pain, unspecified. Reason for transfer: Higher level of care. Accepting physician is DR Robertson. Condition is Stable. Problem is new. Symptoms have improved. cp 23:03 21:50 08/28/2018 19:34 Transfer ordered to [facility]. cp Diagnosis is Aphasia - resolved; Chest pain, unspecified. Reason for transfer: Higher level of care. Accepting physician is DR Green. Condition is Stable. Problem is new. Symptoms have improved. cp 08/29 00:10 08/28 23:03 08/28/2018 19:34 Transfer ordered to [address] Diagnosis is Aphasia - resolved; Chest pain, unspecified. Reason for transfer: Higher level of care. Accepting physician is DR Quintero. Condition is Stable. Problem is new. Symptoms have improved. cp
[2018-08-28] MEDS ORDERED: ASPIRIN 81 MG CHEWABLE TABLET ONE (19:43)
[2018-08-28] MEDS ORDERED: FOLIC ACID 5 MG/ML VIAL ONE (19:44)
[2018-08-28] MEDS ORDERED: NA CHLORIDE 0.9% 1,000 ML ONE (21:27)
[2018-08-28] MEDS ORDERED: DIPHENHYDRAMINE 50 MG/ML VIAL ONE (21:27)
[2018-08-28] MEDS ORDERED: METOCLOPRAMIDE 10 MG/2mL INJ ONE (21:27)
[2018-08-28] MEDS ORDERED: KETOROLAC 30 MG/ML INJ ONE (21:27)
[2018-08-28] MEDS ORDERED: NA CHLORIDE 0.9% 50 ML IV ONE (21:27)
[2018-08-28 22:01] LABS: Blood Morphology Comment NOT SEEN (NOT SEEN); Platelet Estimate ADEQ; Urine White Blood Cell Casts OK
[2018-08-29 02:01] VITALS: TEMP 98.8
[2018-08-29 02:06] VITALS: BP 110/70; O2SAT 95
--- NOTE | 2018-08-29 06:34 | EKG ---
Test Date: 2018-08-28 Test Time: 16:24:05 Rn Or Lpn: SIM MEASUREMENT RESULTS: Intervals: Rate: 73 [place]: 148 QRSD: 78 QT: 410 QTc: 451 [place]: P: 18 AZ: 148 QRS: -1 T: 27 INTERPRETIVE STATEMENTS: Normal sinus rhythm Normal ECG Compared to ECG 06/14/2017 12:19:56 No significant changes Electronically Signed On 08-29-18 06:28:19 EMT B by Niall Monroe
== END 2018-08-29 00:10 | disposition short-term general hospital (02) ==
LOC: ER 15:25
DX: R07.9 Chest pain, unspecified (principal); R51 Headache; I48.91 Unspecified atrial fibrillation; I10 Essential (primary) hypertension; Z88.2 Allergy status to sulfonamides; Z88.8 Allergy status to other drugs, medicaments and biological substances; Z86.73 Personal history of transient ischemic attack (TIA), and cerebral infarction without residual deficits; Z91.048 Other nonmedicinal substance allergy status
CPT/HCPCS: 36415; 70450; 71045; 80048; 80076; 81003; 83735; 83880; 84484; 85025; 85610; 93005; 93970; 96361; 96365; 96366; 96375; 99285; J2765; J7030

== ENCOUNTER 2021-05-17 16:09 | Emergency (ER) | payer BC, OTHER ==
--- NOTE | 2021-05-17 17:16 | RAD REPORT ---
EXAM DESCRIPTION: RAD - Chest Single View - 05/17/2021 5:10 pm CLINICAL HISTORY: syncope COMPARISON: Chest Single View dated 08/28/2018; Chest Single View dated 06/14/2017; Chest Pa And Lat ( 2 Views) dated 09/02/2016; CHEST SINGLE VIEW dated 06/08/2015 FINDINGS: Lines: None. Lungs: No evidence of edema or pneumonia. Pleural: No significant pleural effusions or pneumothorax. Cardiac: The heart size is within normal limits. Bones: No acute fractures. Other: IMPRESSION: No acute cardiopulmonary disease.
[2021-05-17] MEDS ORDERED: FENTANYL CITR 100 MCG/2 ML ONE (17:42)
--- NOTE | 2021-05-17 18:17 | RAD REPORT ---
EXAM DESCRIPTION: CT - Head C Spine Cap Wo Con - 05/17/2021 5:59 pm CLINICAL HISTORY: Trauma, head and neck injury. Chest, abdomen and pelvis pain. syncope COMPARISON: No comparisons TECHNIQUE: CT head without contrast. CT cervical spine without contrast with coronal and sagittal reformatted images. CT chest, abdomen and pelvis with coronal and sagittal reformatted images of the spine. All CT scans are performed using dose optimization technique as appropriate and may include automated exposure control or mA/KV adjustment according to patient size. FINDINGS: CT HEAD WITHOUT CONTRAST: No intracranial hemorrhage, hydrocephalus or extra-axial fluid collection. No acute large vascular te rritory infarct. The paranasal sinuses and mastoids are clear. The calvarium is intact. CT CERVICAL SPINE WITHOUT CONTRAST: No fracture or subluxation. The prevertebral soft tissues are normal in thickness.Mild cervical spondylosis with varying degrees of neural foraminal narrowing. CT CHEST, ABDOMEN, PELVIS: Thorax: Chest Wall: No abnormal mass Lungs: No acute abnormality. Pleura: No effusions or pneumothorax. Meg/Mediastinum: No lymphadenopathy. Aorta/Pulmonary Arteries: Unremarkable Heart: Normal size. Abdomen/Pelvis: Liver: No acute abnormality or suspicious lesions. Biliary: Cholecystectomy Stomach: Mild circumferential thickened distal esophagus consistent with reflux esophagitis. Gastric lap. Duodenum: No significant focal abnormality. Pancreas: No significant abnormality. Spleen: No significant abnormality. Adrenal: No suspicious lesions. Kidney/ureter: No hydronephrosis. No renal calculi. Too small to characterize and/or benign appearing renal lesions are noted. Retroperitoneum: No retroperitoneal adenopathy. Vascular: No aneurysm. Bowel: No significant focal abnormality. Normal appendix. Peritoneum: No ascites or free air. Bladder: Grossly unremarkable. Reproductive: No adnexal masses. Bones: No acute fracture. Grade 1 anterolisthesis of L4 on L5. Multilevel degenerative changes are pr esent in the spine. Other: n/a IMPRESSION: Negative for acute traumatic findings.
[2021-05-17 18:22] LABS: Absolute Lymphocytes (CBC) 2.2 K/uL (0.7-4.9); Basophils % 0.5 % (0-1.3); Hematocrit 42.9 % (36.0-45.0); Lymphocytes % 27.8 % (15.3-44.8); MPV 11.5 fL (7.6-11.3); RBC Red Blood Cell Count 4.72 M/uL (3.86-4.86)
[2021-05-17 18:27] LABS: Protime INR 0.97
[2021-05-17 18:41] LABS: ALT/SGPT 26 U/L (12-78); AST/SGOT 16 U/L (15-37); Albumin 3.8 g/dL (3.4-5.0); Alkaline Phosphatase 56 U/L (45-117); BUN Blood Urea Nitrogen 9 mg/dL (7-18); Bicarbonate 28 mmol/L (21-32); Bilirubin Direct 0.1 mg/dL (0-0.2); Bilirubin Total 0.5 mg/dL (0.2-1.0); Glucose Level 93 mg/dL (74-106); NT PRO-BNP 45 pg/mL (<125); Protein, Total 7.5 g/dL (6.4-8.2); Sodium Level 142 mmol/L (136-145); Troponin (Emerg Dept Use Only) < 0.02 ng/mL (0.0-0.045)
--- NOTE | 2021-05-17 19:07 | RAD REPORT ---
EXAM DESCRIPTION: RAD - Shoulder Right 2 View - 05/17/2021 6:47 pm CLINICAL HISTORY: fall;Pain COMPARISON: No comparisons FINDINGS: No acute fracture. No malalignment. No significant focal degenerative changes. IMPRESSION: No acute osseous abnormality involving the right shoulder.
--- NOTE | 2021-05-17 19:35 | EDPHYS ---
Physician Documentation [facility] Name: Jaymie Schultz Age: 61 yrs Sex: Female : 1960 Arrival Date: 05/17/2021 Time: 16:14 Bed 18 Private MD: ED Physician Clinton Smith HPI: 05/17 17:00 This 61 yrs old Female presents to ER via Ambulatory with complaints of cp Syncope, Fall Injury. 17:00 The patient has experienced syncope, lost consciousness. Onset: The symptoms/episode cp began/occurred just prior to arrival. Duration: This was a single episode, that lasted an unknown period of time. Context: the episode(s) was witnessed, by a friend, occurred at a parking lot, occurred while the patient was walking, Just prior to the episode the patient experienced no apparent symptoms. Associated injury: Head/face: contusion, Neck: pain, Back: pain, Right upper extremity: right shoulder, decreased range of motion, pain, tenderness. Associated signs and symptoms: Pertinent positives: headache. Current symptoms: headache. Patient reports she walking into local [employer] and next thing she remembers is awakening on ground in parking lot. Historical: - Allergies: 16:27 Iodine; ch5 16:27 Levofloxacin; ch5 16:27 METHOTREXATE AND DERIVATIVES; ch5 16:27 Sulfa (Sulfonamide Antibiotics); ch5 - Home Meds: 16:27 alprazolam 1 mg Oral tab twice a day [Active]; cyclobenzaprine 10 mg Oral tab 1 tab 2 ch5 times per day [Active]; diltiazem HCl 240 mg Oral cpER 1 cap once daily [Active]; hydroxychloroquine 200 mg Oral tab 2 times per day [Active]; zolpidem 12.5 mg Oral TbMP 1 tab once daily [Active]; lisinopril 1 mg/mL Oral soln 20 mL once daily [Active]; meloxicam oral [Active]; prednisone Oral [Active]; Tramadol Oral [Active]; - PMHx: 16:27 A fib with RVR; Atrial Fib; CVA; Hypertension; Lupus; Rheumatoid Arthritis; sjorgens ch5 syndrome; - Immunization history:: Adult Immunizations up to date, Client reports receiving the 2nd dose of the Covid vaccine. - Social history:: Smoking status: Patient denies any tobacco usage or history of. ROS: 17:05 Constitutional: Negative for body aches, chills, fever, poor PO intake. cp 17:05 Eyes: Negative for injury, pain, redness, and discharge. cp 17:05 Neck: Positive for pain with movement, pain at rest, tenderness. 17:05 Cardiovascular: Negative for chest pain, palpitations. 17:05 Respiratory: Negative for cough, shortness of breath, wheezing. 17:05 Abdomen/GI: Negative for abdominal pain. 17:05 Back: Positive for pain at rest, pain with movement. 17:05 Neuro: Positive for headache, syncope, Negative for altered mental status, seizure activity, weakness. 17:05 All other systems are negative. Exam: 17:05 ECG was reviewed by the Attending Physician. cp 17:10 Constitutional: The patient appears in no acute distress, alert, awake, cp non-diaphoretic, non-toxic, well developed, well nourished, obese. 17:10 Head/face: Noted is contusion, that is superficial, of the right temporal area, right cp side of forehead, right sabianist and right zygomatic area. 17:10 Eyes: Periorbital structures: appear normal, Pupils: equal, round, and reactive to light and accomodation, Extraocular movements: intact throughout, Conjunctiva: normal, no exudate, no injection, Lids and lashes: appear normal, bilaterally. 17:10 ENT: External ear(s): are unremarkable, Nose: is normal, Mouth: Lips: moist, Oral mucosa: moist, Posterior pharynx: Airway: no evidence of obstruction, patent. 17:10 Neck: C-spine: C-collar placed in ED, vertebral tenderness, that is mild, appreciated at C5 and C6, crepitus, is not appreciated. 17:10 Chest/axilla: Inspection: normal, Palpation: crepitus, is not appreciated, tenderness, that is moderate, of the right lateral anterior chest. 17:10 Cardiovascular: Rate: normal, Rhythm: regular, Edema: is not appreciated, JVD: is not appreciated. 17:10 Respiratory: the patient does not display signs of respiratory distress, Respirations: normal, no use of accessory muscles, no retractions, labored breathing, is not present, Breath sounds: are clear throughout, no decreased breath sounds, no stridor, no wheezing. 17:10 Abdomen/GI: Inspection: abdomen appears normal, Bowel sounds: active, all quadrants, Palpation: abdomen is soft and non-tender, in all quadrants. 17:10 Back: pain, that is moderate, of the thoracic area and lumbar area, ROM is painful, with all movement. 17:10 Musculoskeletal/extremity: Extremities: grossly normal except: noted in the right shoulder: pain, tenderness, ROM: limited passive range of motion due to pain, in the right shoulder, Pulses: noted to be 2+ in the right radial artery and left radial artery. 17:10 Neuro: Orientation: to person, place \T\ time. Mentation: is normal, Motor: moves all fours, strength is normal, Sensation: no obvious gross deficits. Vital Signs: 16:24 BP 147 / 113; Pulse 92; Resp 18; Temp 97.8(TE); Pulse Ox 99% on R/A; Weight 90.72 kg; ch5 Height 5 ft. 3 in. (160.02 cm); Pain 6/10; 17:11 BP 148 / 91; Pulse 78; Resp 18; Temp 97.9(O); Pulse Ox 99% on R/A; sl2 18:28 BP 161 / 88; Pulse 72; Resp 18; Temp 97.8(O); Pulse Ox 100% on R/A; sl2 20:16 BP 170 / 100; Pulse 73; Resp 17; Temp 98.7; Pulse Ox 98% on R/A; cc4 16:24 Body Mass Index 35.43 (90.72 kg, 160.02 cm) ch5 MDM: 16:37 Patient medically screened. cp 19:15 Data reviewed: vital signs, nurses notes, lab test result(s), EKG, radiologic studies, cp CT scan. 19:15 Test interpretation: by ED physician or midlevel provider: ECG. Physician consultation: isi Daniels was contacted at 19:15, regarding admission, to the telemetry unit. patient's condition, and will see patient in ED, shortly. 20:00 Refusal of service: The patient/guardian displays adequate decision making capability cp and despite a detailed discussion of alternatives, benefits, risks, and consequences refuses: Admission to the hospital for further work-up and treatment. 05/17 16:55 Order name: Basic Metabolic Panel; Complete Time: 18:59 cp 05/17 18:59 Interpretation: Normal except: CL 108. cp 05/17 16:55 Order name: CBC with Diff; Complete Time: 18:59 cp 05/17 18:59 Interpretation: Normal except: PLT 97; MPV 11.5. cp 05/17 16:55 Order name: LFT's; Complete Time: 18:59 cp 05/17 18:59 Interpretation: Normal except: GLOB 3.7; A/G 1.0. cp 05/17 16:55 Order name: Magnesium; Complete Time: 18:59 cp 05/17 16:55 Order name: NT PRO-BNP; Complete Time: 18:59 cp 05/17 16:55 Order name: PT-INR; Complete Time: 18:59 cp 05/17 16:55 Order name: Troponin (emerg Dept Use Only); Complete Time: 18:59 cp 05/17 16:55 Order name: XRAY Chest (1 view); Complete Time: 17:22 cp 05/17 16:55 Order name: EKG; Complete Time: 16:57 cp 05/17 16:55 Order name: Cardiac monitoring; Complete Time: 17:05 cp 05/17 17:23 Order name: CT Traumagram (Head C Spine CAP wo con); Complete Time: 18:21 cp 05/17 18:22 Order name: XRAY Shoulder RIGHT 2 view; Complete Time: 19:41 cp 05/17 16:55 Order name: EKG - Nurse/Tech; Complete Time: 17:05 cp 05/17 16:55 Order name: IV Saline Lock; Complete Time: 17:27 cp 05/17 16:55 Order name: Labs collected and sent; Complete Time: 17:27 cp 05/17 16:55 Order name: O2 Per Protocol; Complete Time: 17:05 cp 05/17 16:55 Order name: O2 Sat Monitoring; Complete Time: 17:05 cp 05/17 17:47 Order name: Labs - recollect needed; Complete Time: 17:55 mt 05/17 17:47 Order name: Labs - recollect needed; Complete Time: 17:55 mt EC:05 Rate is 78 beats/min. Rhythm is regular. MN interval is normal. QRS interval is normal. cp QT interval is normal. T waves are Inverted in lead aVR. Interpreted by me. Reviewed by me. Administered Medications: 17:20 Drug: fentaNYL (PF) 25 mcg Route: IVP; Site: left antecubital; sl2 17:42 Follow up: Response: No adverse reaction; Pain is decreased sl2 Disposition: 20:15 Chart complete. cp Disposition Summary: 05/17/21 20:05 Left Against Medical Advice Location: Home(05/17/21 20:05) cp Problem: new(05/17/21 20:05) cp Symptoms: have improved(05/17/21 20:05) cp Condition: Stable(05/17/21 20:05) cp Diagnosis - Pain in right shoulder(05/17/21 20:05) cp - Syncope cp Followup: cp - With: Private Physician - When: 1 - 2 days - Reason: Recheck today's complaints Addendum: 05/20/2021 13:59 Co-signature as Attending Physician, Clinton Smith MD I agree with the assessment and r n plan of care. Attestation: The patient's history, exam findings, diagnostics, and a summary of any interventions or procedures was reviewed in detail with Troy FANG. Signatures: Dispatcher [employer] EDMS Clinton Smith MD MD rn Jeremiah, Rodrick, GALLERY OR MUSEUM TECHNICIAN-C GALLERY OR MUSEUM TECHNICIAN-Cla1 Troy Plascencia PA PA cp Thompson, Moriah mt Heath, Christopher, REBECCA RN ch5 Dorcas Gordon RN RN sl2 Corrections: (The following items were deleted from the chart) 05/17 20:04 19:34 Observation cp cp 20:04 19:34 Tommy Soria cp cp 20:04 19:34 Telemetry/MedSurg (observation) cp cp 20:04 19:34 Stable cp cp 20:04 19:34 new cp cp 20:04 19:34 have improved cp cp 20:04 19:34 Standard cp cp 20:04 19:34 cp cp 20:04 19:34 Pain in right shoulder cp cp 20:04 19:34 Syncope cp cp
--- NOTE | 2021-05-17 19:35 | ER ---
Nurse's Notes [facility] Name: Jaymie Schultz Age: 61 yrs Sex: Female : 1960 Arrival Date: 05/17/2021 Time: 16:14 Bed 18 Private MD: Diagnosis: Pain in right shoulder;Syncope Presentation: 05/17 16:24 Chief complaint: [facility]. Right sided pain with ch5 Nausea and dizziness. Coronavirus screen: Vaccine status: Patient reports receiving the 2nd dose of the covid vaccine. Ebola Screen: Patient negative for fever greater than or equal to 101.5 degrees Fahrenheit, and additional compatible Ebola Virus Disease symptoms Patient denies exposure to infectious person. Patient denies travel to an Ebola-affected area in the 21 days before illness onset. No symptoms or risks identified at this time. Initial Sepsis Screen: Does the patient meet any 2 criteria? No. Patient's initial sepsis screen is negative. Does the patient have a suspected source of infection? No. Patient's initial sepsis screen is negative. Risk Assessment: Do you want to hurt yourself or someone else? Patient reports no desire to harm self or others. Onset of symptoms was May 17, 2021 at 15:00. 16:24 Method Of Arrival: Ambulatory 5 16:24 Acuity: HOLLEY 3 ch5 Triage Assessment: 16:27 General: Appears in no apparent distress. uncomfortable, Behavior is calm, cooperative. ch5 Pain: Pain currently is 6 out of 10 on a pain scale. Aggravated by increased activity. Historical: - Allergies: 16:27 Iodine; ch5 16:27 Levofloxacin; ch5 16:27 METHOTREXATE AND DERIVATIVES; ch5 16:27 Sulfa (Sulfonamide Antibiotics); ch5 - Home Meds: 16:27 alprazolam 1 mg Oral tab twice a day [Active]; cyclobenzaprine 10 mg Oral tab 1 tab 2 ch5 times per day [Active]; diltiazem HCl 240 mg Oral cpER 1 cap once daily [Active]; hydroxychloroquine 200 mg Oral tab 2 times per day [Active]; zolpidem 12.5 mg Oral TbMP 1 tab once daily [Active]; lisinopril 1 mg/mL Oral soln 20 mL once daily [Active]; meloxicam oral [Active]; prednisone Oral [Active]; Tramadol Oral [Active]; - PMHx: 16:27 A fib with RVR; Atrial Fib; CVA; Hypertension; Lupus; Rheumatoid Arthritis; sjorgens ch5 syndrome; - Immunization history:: Adult Immunizations up to date, Client reports receiving the 2nd dose of the Covid vaccine. - Social history:: Smoking status: Patient denies any tobacco usage or history of. Screenin:50 Abuse screen: Denies threats or abuse. Nutritional screening: No deficits noted. sl2 Tuberculosis screening: No symptoms or risk factors identified. Fall Risk Fall in past 12 months (25 points). No secondary diagnosis (0 pts). No IV (0 pts). Ambulatory Aid- None/Bed Rest/Nurse Assist (0 pts). Gait- Normal/Bed Rest/Wheelchair (0 pts) Mental Status- Oriented to own ability (0 pts). Total Newton Fall Scale indicates Low Risk Score (25-44 pts). Fall prevention measures have been instituted. Side Rails Up X 2 Placed close to Nursing Station Frequent Obs/Assesments occuring Family Present and informed to notify staff if they need to leave bedside. Assessment: 16:50 General: Appears in no apparent distress. uncomfortable, obese, well groomed, well sl2 developed, Behavior is calm, cooperative, Reports Trip and fall with loss of consciousness with impact to right side of body - patient states she hit her head on the ground, c/o soreness to right side of her face and states the entire right side of her body hurts, shoulder, arm, torso \T\ leg. Patient c/o nausea and dizziness. 16:50 Pain: Complains of pain in right side of face, right shoulder, right arm, right lateral sl2 torso, right lower extremity Pain does not radiate. Pain currently is 8 out of 10 on a pain scale. Quality of pain is described as aching, sharp, Pain began suddenly, Is continuous, Alleviated by repositioning, Aggravated by increased activity, Noted to be grimacing, resistant to movement. 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 Gait is steady, Speech is normal, Facial symmetry appears normal, Reports dizziness, nausea. Denies weakness blurred vision difficulty swallowing, paresthesias numbness photophobia diplopia. Cardiovascular: No deficits noted. Rhythm is regular. Respiratory: No deficits noted. GI: No deficits noted. : No deficits noted. EENT: No deficits noted. Derm: No deficits noted. Musculoskeletal: No deficits noted. 18:36 Reassessment: Right shoulder portable X-ray in progress at bedside. sl2 20:00 Reassessment: Patient appears in no apparent distress at this time. Rodrick Luke NP cc4 reports that patient wants to leave AMA; ANNALISA Huntley notified. 20:16 Reassessment: Informed of risks leaving AMA with v/u; daughter \T\ bedside; signing AMA cc4 form with saline lock removed left AC with no bleeding noted; leaing via ambulation per exit with daughter. Vital Signs: 16:24 BP 147 / 113; Pulse 92; Resp 18; Temp 97.8(TE); Pulse Ox 99% on R/A; Weight 90.72 kg; ch5 Height 5 ft. 3 in. (160.02 cm); Pain 6/10; 17:11 BP 148 / 91; Pulse 78; Resp 18; Temp 97.9(O); Pulse Ox 99% on R/A; sl2 18:28 BP 161 / 88; Pulse 72; Resp 18; Temp 97.8(O); Pulse Ox 100% on R/A; sl2 20:16 BP 170 / 100; Pulse 73; Resp 17; Temp 98.7; Pulse Ox 98% on R/A; cc4 16:24 Body Mass Index 35.43 (90.72 kg, 160.02 cm) 5 ED Course: 16:14 Patient arrived in ED. ds1 16:27 Triage completed. ch5 16:27 Arm band placed on right wrist. ch5 16:36 Troy Plascencia PA is PHCP. cp 16:36 Clinton Smith MD is Attending Physician. cp 16:40 Rigid cervical collar applied and checked by physician. sl2 16:44 Dorcas Gordon, REBECCA is Primary Nurse. sl2 16:51 Patient has correct armband on for positive identification. Bed in low position. Call 5 light in reach. Side rails up X 1. Warm blanket given. teletypesetter monitor on. Pulse ox on. NIBP on. 16:52 EKG done, by ED staff, reviewed by Troy FANG. mh5 17:10 XRAY Chest (1 view) In Process Unspecified. EDMS 17:27 Basic Metabolic Panel Sent. mh5 17:27 CBC with Diff Sent. mh5 17:27 LFT's Sent. mh5 17:27 Magnesium Sent. mh5 17:28 NT PRO-BNP Sent. 5 17:28 PT-INR Sent. 5 17:28 Troponin (emerg Dept Use Only) Sent. 5 17:28 Initial lab(s) drawn, by me, sent to lab. Missed attempt(s): 22 gauge in right forearm. mh5 17:56 Lab(s) recollected, by me, sent to lab. 5 18:06 No provider procedures requiring assistance completed. IV discontinued, intact. sl2 18:07 CT Traumagram (Head C Spine CAP wo con) In Process Unspecified. EDMS 18:47 XRAY Shoulder RIGHT 2 view In Process Unspecified. EDMS 19:33 Tommy Soria DO is Hospitalizing Provider. cp Administered Medications: 17:20 Drug: fentaNYL (PF) 25 mcg Route: IVP; Site: left antecubital; sl2 17:42 Follow up: Response: No adverse reaction; Pain is decreased sl2 Outcome: 19:34 Decision to Hospitalize by Provider. cp 20:16 AMA AMA form signed cc4 20:16 Condition: stable 20:16 Instructed on the need for admit, Demonstrated understanding of instructions, Reguesting to leave AMA. 20:44 Patient left the ED. cc4 Signatures: Dispatcher [facility] Troy Plascencia PA PA cp Daisy Pradhan [facility] Milton Hagen, RN RN ch5 Olga Christianson, RN RN cc4 Dorcas Gordon, REBECCA RN sl2 Corrections: (The following items were deleted from the chart) 18:11 17:45 BP 138 / 88; Pulse 79bpm; Resp 18bpm; Pulse Ox 99%; Temp 97.9F; sl2 sl2 18:11 18:06 Discharged to home ambulatory, sl2 sl2 18:11 18:06 Condition: stable sl2 sl2 18:11 18:06 Discharge instructions given to patient, Instructed on discharge instructions, sl2 follow up and referral plans. medication usage, Demonstrated understanding of instructions, follow-up care, medications, Prescriptions given X 2, sl2
[2021-05-17 20:53] VITALS: BP 170/100; TEMP 98.7; O2SAT 98
--- NOTE | 2021-05-19 14:24 | EKG ---
Test Date: 2021-05-17 Test Time: 16:57:41 Senior Cyber Security Analyst: NATHAN MEASUREMENT RESULTS: Intervals: Rate: 78 WV: 132 QRSD: 80 QT: 394 QTc: 449 [place]: P: 13 WV: 132 QRS: 5 T: 30 INTERPRETIVE STATEMENTS: Normal sinus rhythm Cannot rule out Anterior infarct, age undetermined Abnormal ECG Compared to ECG 07/07/2020 14:28:14 Myocardial infarct finding now present Electronically Signed On 05-19-21 14:21:59 CDT by Shoaib Hurtado
== END 2021-05-17 20:44 | disposition left against medical advice (07) ==
LOC: ER 16:09
DX: M25.511 Pain in right shoulder (principal); I10 Essential (primary) hypertension; Z86.73 Personal history of transient ischemic attack (TIA), and cerebral infarction without residual deficits; Z88.1 Allergy status to other antibiotic agents; Z88.2 Allergy status to sulfonamides; Z91.048 Other nonmedicinal substance allergy status
CPT/HCPCS: 93005; 85025; 80048; 36415; 83735; 85610; 80076; 84484; 83880; 70450; 71250; 72125; 71045; 73030; 96374; 99284; J3010

== ENCOUNTER 2022-08-29 21:03 | Emergency (ER) | payer BC ==
--- OUTSIDE RECORDS SUMMARY | 2022-08-29 21:09 | XMS REPORT | Continuity of Care Document ---
:1960 Author Organization [facility] t Address [address] [place] [address] Care Team Providers Name Role Phone aSmir Read MD Primary Care Physician RICARDO KLINE Attending Clinician Unavailable Aubrie Gomez MA Attending Clinician Unavailable John Attending Clinician Unavailable DOT CEBALLOS Attending Clinician Unavailable Jacqueline Falk MA Attending Clinician Unavailable Chris Cary MD Attending Clinician JOHN AYERS Attending Clinician Unavailable JUAN LONDON Attending Clinician Unavailable Kaleb Attending Clinician Unavailable Yahaira Pagan MD Attending Clinician Randal Helms MD Attending Clinician Evie Miller APRN Attending Clinician [phone] FAYE PÉREZ Attending Clinician Unavailable MEKA MILLS Attending Clinician Unavailable Cheri Oseguera Attending Clinician JOHN TOMLINSON Attending Clinician Unavailable TAMMI LIAO Attending Clinician Unavailable KAVON THORNE Attending Clinician Unavailable LAB90 Attending Clinician Unavailable Binu SAGASTUME, John Toussaint Attending Clinician [phone] MD ROSEMARY Attending Clinician Unavailable Salina Simms MD Attending Clinician [phone] TANO MARINO Attending Clinician Unavailable MARTA BARNES Attending Clinician Unavailable FIOR MACIEL Attending Clinician Unavailable Ned COMPUTATIONAL GENETICIST-CTano Attending Clinician Mirna Baez RN Attending Clinician Unavailable UNKNOWN, ATTENDING Attending Clinician Unavailable Doctor Unassigned, [place] Attending Clinician Unavailable DR GERMAN WIGGINS Attending Clinician Unavailable Sterling [place] Attending Clinician Unavailable Tricia Shelton Attending Clinician Po[facility] Attending Clinician Unavailable Gracie Pacheco MD Attending Clinician [phone] GRACIE PACHECO Attending Clinician Unavailable John Admitting Clinician Unavailable Kaleb Admitting Clinician Unavailable JOHN AYERS Admitting Clinician Unavailable DR GERMAN WIGGINS Admitting Clinician Unavailable Sterling [place] Admitting Clinician Unavailable Payers Payer Name Policy Type Policy Number Effective Date Expiration Date S lesly [facility] 2 [id number] 2020 00:00:00 [place] [id number] 2020 [place]PP[place] 00:00:00 AETNA (POS) [id number] 2013 2020 00:00:00 00:00:00 BCBS FORMERLY [facility] [id number] 2020 00:00:00 Problems Condition Condition Condition Status Onset Resolution Last Treating Co mments Source Name Details Category Date Date Treatment Clinician Date Acute pain Acute pain Disease Active 2021-07 M ethodi of right of right 08-28 shoulder shoulder 00:00: Hospit a 00 l Fall Fall Disease Active 2021-07 Methodi 2-08 [facility] 00:00: Hospita 00 l Neck pain Neck pain Disease Active 2021-07 Met hodi on right on right [address] side side 00:00: Hospita 00 l History of History of Disease Active 2021-07 M ethodi total total 2-08 st replacemen replacemen 00:00: Ho spita t of right t of right 00 l shoulder shoulder joint joint Glenohumer Glenohumer Disease Active 2021-07 M rafaelaodi al al 1-10 st arthritis, arthritis, 00:00: Ho spita right right 00 l Arthritis Arthritis Disease Active 2021-07 Overview: Methodi of right of right 07-[address] shoulder shoulder 00:00: g of this Hos ilan region region 00 note l might be different from the original. Added automatic ally from request for surgery [id number] Sjogren's Sjogren's Disease Active 2020-07 Stevan sey syndrome syndrome 2-28 Seybol d 00:00: 00 History of History of Disease Active 2020-07 K elsey thyroiditi thyroiditi 2-28 Se ybold s s 00:00: 00 Overweight Overweight Problem Active 2020-07 A zalea 2-14 Orthope 00:00: dic 00 Sports Medicin e Lupus Lupus Problem Active 2020-07 Yazmin erythemato Erythemato 2-14 Or thope laine laine 00:00: dic 00 Sports Medicin e Sj?bethany's Sj?bethany's Problem Active 2020-07 [facility] a syndrome Syndrome 2-14 Orthop e 00:00: dic 00 Sports Medicin e Hip pain Hip Pain Problem Active 2020-07 Azale a 2-14 Orthope 00:00: dic 00 Sports Medicin e Neck pain Neck Pain Problem Active 2020-07 Aza shreya 2-14 Orthope 00:00: dic 00 Sports Medicin e Cervical Cervical Problem Active 2020-07 [facility]ale a radiculopa Radiculopa 2-14 Or thope thy thy 00:00: dic 00 Sports Medicin e Low back Low Back Problem Active 2020-07 Azale a pain Pain 2-14 Orthope 00:00: dic 00 Sports Medicin e Lumbosacra Lumbosacra Problem Active 2020-07 A zalea l l 2-14 Orthope radiculopa Radiculopa 00:00: di c thy thy 00 Sports Medicin e Chronic Chronic Problem Active 2020-07 Yazmin back pain Back Pain 2-14 Orth ope 00:00: dic 00 Sports Medicin e Bicipital Bicipital Problem Active 2020-07 Aza shreya tenosynovi Tenosynovi 2-14 Or thope tis tis 00:00: dic 00 Sports Medicin e Impingemen Impingemen Problem Active 2020-07 A adonis t syndrome t Syndrome 2-14 Or thope of of 00:00: dic shoulder Shoulder 00 Sports region Region Medicin e Osteoporos Osteoporos Problem Active 2020-07 A adonis is is 2-14 Orthope 00:00: dic 00 Sports Medicin e Thyroid Thyroid Problem Active 2020-07 Yazmin function Function 2-14 Orthop e tests Tests 00:00: dic abnormal Abnormal 00 Sports Medicin e Pain of Pain of Problem Active 2020-07 Yazmin right Right 2-14 Orthope shoulder Shoulder 00:00: dic joint Joint 00 Sports Medicin e High risk High Risk Problem Active 2020-07 Aza shreya drug Drug 2-14 Orthope monitoring Monitoring 00:00: di c 00 Sports Medicin e TIA TIA Disease Active Methodi (transient (transient 08-29 st ischemic ischemic 00:00: Hospit a attack) attack) 00 l Bilateral Bilateral Disease Active Met hodi hip joint hip joint 03-27 st arthritis arthritis 00:00: Hosp [facility] 00 l Chronic Chronic Disease Active Methodi pain of pain of 03-27 st left knee left knee 00:00: Hosp [facility] 00 l Chronic Chronic Disease Active Methodi pain in pain in 07 st right foot right foot 00:00: Ho spita 00 l Sjogren's Sjogren's Disease Active Met hodi syndrome syndrome 11-26 st with with 00:00: Hospita keratoconj keratoconj 00 l unctivitis unctivitis sicca sicca Other Other Disease Active Methodi chronic chronic 11-26 st pain pain 00:00: Hospita 00 l Chronic Chronic Disease Active Methodi left left 11-26 st lumbar lumbar 00:00: Hospita radiculopa radiculopa 00 l thy thy Obesity Obesity Disease Active Methodi (BMI (BMI 11-26 st 35.0-39.9 35.0-39.9 00:00: Hosp shabnam without without 00 l comorbidit comorbidit y) y) Gastroesop Gastroesop Disease Active M ethodi hageal hageal 11-26 st reflux reflux 00:00: Hospita disease disease 00 l without without esophagiti esophagiti s s Primary Primary Disease Active Methodi insomnia insomnia 11-26 00:00: Hospita 00 l Rheumatoid Rheumatoid Problem Active A ericlea arthritis Arthritis 10-24 Orth ope 00:00: dic 00 Sports Medicin e Arthropath Arthropath Problem Active A zalea y y 10-24 Orthope 00:00: dic 00 Sports Medicin e Nonunion Nonunion Problem Active Azale a of of 10-24 Orthope fracture Fracture 00:00: dic 00 Sports Medicin e Sleep Sleep Problem Active Yazmin apnea Apnea 10-24 Orthope 00:00: dic 00 Sports Medicin e Metatarsal Metatarsal Problem Active A erictannereunice [place] 10-24 Orthope 00:00: dic 00 Sports Medicin e No known No known Disease Kelse y active active Seybold problems problems Allergies, Adverse Reactions, Alerts Allergy Allergy Status Severity Reaction(s) Onset Inactive Treating Comm ents Source Name Type Date Date Clinician Iodinate Propensi Active Hives 2021-07 Method i d ty to 07-23 Contrast adverse 00:00: Hospita Media reaction 00 l s to drug Povidone Propensi Active Hives 2021-07 Method i -Iodine ty to 07-23 adverse 00:00: Hospita reaction 00 l s to drug Shrimp Propensi Active Swelling 2021-07 Method i ty to 07-23 st adverse 00:00: Hospita reaction 00 l s to drug Kdc:Haines Propensi Active Yolie ow ty to 08-16 Seybold Dye+Tart adverse 00:00: razine+L reaction 00 evofloxa s sherita Shellfis Propensi Active Yolie h ty to 08-16 Seybold Allergy adverse 00:00: reaction 00 s Methotre Propensi Active Anaphylaxis K elsey xate ty to 11-26 Seybold Sodium adverse 00:00: reaction 00 s Sulfa Propensi Active Nausea and Beth ey Drugs ty to Vomiting 11-26 Seybold adverse 00:00: reaction 00 s Sulfa Propensi Active Nausea Univers (Sulfona ty to and/or 11-26 ity of mide adverse Vomiting 00:00: [place] Antibiot reaction 00 Medica l ics) s Branch METHOTRE DRUG Active Anaphylaxis Uni vers XATE INGREDI 11-26 ity of 00:00: [place] 00 Medical Branch SULFA Drug Active N/V Univers (SULFONA Class 11-26 ity of MIDE 00:00: [place] ANTIBIOT 00 Medical ICS) Branch Methotre Propensi Active Anaphylaxis M ethodi xate ty to 11-26 adverse 00:00: Hospita reaction 00 l s to drug Sulfa Propensi Active GI Methodi (Sulfona ty to Intolerance 11-26 mide adverse 00:00: Hospita Antibiot reaction 00 l ics) s to drug Iodine Propensi Active Methodi ty to 11-26 adverse 00:00: Hospita reaction 00 l s to drug IODINE Allergy Active Yazmin to 06 Orthope substanc 00:00: dic e 00 Sports Medicin e Iodine Propensi Active Other Srinivasa Urbano ty to 08-12 reaction( Seybold adverse 00:00: s): reaction 00 Other: s See Commentsc onvulsion sconvulsi ons convulsio nsconvuls ions convulsio nsconvuls ionsOther reaction( s): Other: See Commentsc onvulsion sconvulsi ons convulsio nsconvuls ions Levoflox Propensi Active Other Yolie acin ty to 08-12 reaction( Seybold adverse 00:00: s): reaction 00 Other: s See CommentsM uscle crampsMus michael crampsMus michael crampsMus michael cramps IODINE DRUG Active Anaphylaxis Unive rs INGREDI 08-12 ity of 00:00: [place] 00 Medical Branch LEVOFLOX DRUG Active Other-Cmnt Univ ers ACIN INGREDI 08-12 ity of 00:00: [place] 00 Medical Branch Levoflox Propensi Active Other (See Muscle Me thodi acin ty to Comments) 08-[address] adverse 00:00: Hospita reaction 00 l s to drug Methotre Allergy Active Yazmin xate to Orthope substanc dic e Sports Medicin e SULFA Allergy Active Yazmin (SULFONA to Orthope MIDE substanc dic ANTIBIOT e Sports ICS) Medicin e NO KNOWN Drug Active Univers ALLERGIE Class ity of [facility] Iodine DA Active Unknown convulsions [facility] Shellfis DA Active Unknown [facility] Levaquin DA Active Unknown [facility] Family History Family Member Diagnosis Comments Start Date Stop Date Source Natural brother Asthma [facility] Natural brother COPD [facility] Natural brother Hypertension [facility] Natural father [facility] mother Lymphoma [facility] Social History Social Habit Start Date Stop Date Quantity Comments Source Exposure to Not sure Yolie Semateo crawford SARS-CoV-2 (event) Alcohol intake 2022-05-30 2022-05-30 Current drinker Metho dist 00:00:00 00:00:00 of alcohol Hospital (finding) Tobacco use and 2022-05-23 2022-05-23 Smokeless tobacco Me thodist exposure 00:00:00 00:00:00 non-user Hospital Alcohol Comment 2022-05-23 2022-05-23 rare/social Methodis t 00:00:00 00:00:00 Hospital Sex Assigned At [birth year] F [employer] 00:00:00 00:00:00 Hospital Smoking Status Start Date Stop Date Source Never smoked tobacco [facility] Medications Ordered Filled Start Stop Current Ordering Indication Dosage Frequency Signature Comments Components Source Medication Medication Date Date Medication? Clinician (SIG) Name Name acetaminoph 2021-07 Yes Take by Met renuka william with 1-[address] codeine 14:11: needed. Hospita (TYLENOL-CO 08 l DEINE #3 ORAL) MULTIVITAMI 2021-07 Yes Take by Met renuka N ORAL 1-[address] 14:11: Hospita 08 l MELATONIN 2021-07 Yes 20mg QD Take 20 mg Me thodi ORAL 1-[address] 14:11: nightly. Hospita 08 l traMADoL 2021-07 Yes [id number] 50mg Q4H Take 1 Method i (ULTRAM) 50 1-11 tablet (50 st mg tablet 00:00: mg total) Hos ilan 00 by mouth l every 4 (four) hours as needed for moderate pain for up to 10 days .acute pain. HYDROcodone 2021-07 [place] [id number] 1{tbl} Q6H Take 1 Methodi -acetaminop 07-[address] hen ([place]) 00:00: 05:59 mouth Hosp [facility]nam 10-325 mg 00 :00 every 6 l per tablet (six) hours as needed for severe pain or moderate pain for up to 10 days .acute pain. Max Daily Amount: 4 tablets DULoxetine 2021-07 No 30mg QD Take 30 mg Methodi (CYMBALTA) 07-[address] 30 MG 08:31: 00:00 daily. Hospita capsule 53 :00 l meloxicam Yes [id number] TAKE 1 Met hodi (MOBIC) 15 8-[address] mg tablet 00:00: MOUTH Hospita 00 EVERY DAY l NEEDED FOR JOINT PAIN Multiple Yes Take by Yolie Vitamins-Mi -27 mouth Seybold nerals 15:29: (MULTIVITAL 25 OR) Alprazolam Yes 1mg Take 1 mg Ke lsey 1 MG oral 27 by mouth 2 Seyb old Tablet 15:29: times 25 daily Cyclobenzap Yes 10mg Q.[id number] Take 10 mg Yolie rine HCl 10 - [id number] by mouth 3 Seybold MG oral 15:29: 3D times Tablet 25 daily as needed Hydroxychlo Yes 200mg Take 200 K elsey roquine 1-27 mg by Seybold Sulfate 200 15:29: mouth 2 MG oral 25 times Tablet daily Tramadol 0 Yes 50mg Take 50 mg Stevan sey HCl 50 MG -27 by mouth Seybol d oral Tablet 15:29: 25 Amoxicillin 0 Yes [id number] 1{tbl} Take 1 Yolie -Pot 1-27 tablet by Seybold Clavulanate 00:00: mouth 2 875-125 MG 00 times oral Tablet daily Promethazin 0 Yes [id number] 5mL Q4H Take 5 mL Yolie e-Codeine 1-27 by mouth Seybol d 6.25-10 00:00: every 4 MG/5ML oral 00 hours as Syrup needed for cough cycloSPORIN 2020-07 Yes [id number] 1[drp] Place 1 Yolie E 2-28 drop into Seybold (Restasis) 00:00: both eyes 0.05 % 00 2 times ophthalmic daily Emulsion cycloSPORIN 2020-07 Yes [id number] 1[drp] Place 1 Yolie E 2-28 drop into Seybold (Restasis) 00:00: both eyes 0.05 % 00 2 times ophthalmic daily Emulsion Hydrocortis 2020-07- No [id number] Apply to Yolie one 1 % 2-28 08-01 face 2 Seybold apply 00:00: 05:59 times externally 00 :00 daily Cream Lisinopril 2020-07 Yes TAKE 1 Kelse y 20 MG oral 2-27 TABLET BY Seyb old Tablet 00:00: MOUTH 00 EVERY DAY Lisinopril 2020-07 Yes TAKE 1 Kelse y 20 MG oral 2-27 TABLET BY Seyb old Tablet 00:00: MOUTH 00 EVERY DAY Azithromyci 2020-07- No [id number] Take 2 Yolie n 250 MG 2-27 -02 tablets by Seyb old oral Tablet 00:00: 05:59 mouth on 00 :00 day 1 then 1 tablet by mouth daily for 4 days thereafter . Risedronate 2020-07 Yes Yolie Sodium 150 2-14 Seybold MG oral 00:00: Tablet 00 risedronate 2020-07 Yes risedronat Methodi (ACTONEL) 2-[address] 150 MG 00:00: tablet 1 Hospita tablet 00 tablet by l mouth once a month zolpidem CR 2020-07- No Metho di (AMBIEN CR) -19 11-03 st 12.5 MG CR 00:00: 00:00 Hospit a tablet 00 :00 l lisinopriL 2020-07 Yes 20mg QD Take 1 Metho di (PRINIVIL) -[address] 20 mg 00:00: mouth Hospita tablet 00 daily. l hydrOXYchlo 2020-07 Yes 400mg QD 2 tablets Methodi roQUINE -07 ([address] (PLAQUENIL) 00:00: total) Hosp [facility] 200 mg 00 every l tablet evening. DULoxetine 2020-07 Yes [id number] 30mg Take 30 mg Yolie HCl 30 MG 0-18 by mouth Seybol d oral 00:00: daily Capsule 00 Delayed Release Sprinkle DULoxetine 2020-07 Yes [id number] 30mg Take 30 mg Yolie HCl 30 MG 0-18 by mouth Seybol d oral 00:00: daily Capsule 00 Delayed Release Sprinkle Zolpidem 2020-07- No 12.5mg Take 12.5 K elsey Tartrate 0-08 10-08 mg by Seybold 12.5 MG 14:39: 00:00 mouth at oral Tab CR 20 :00 bedtime as needed Alprazolam 2020-07 Yes 1mg Take 1 mg Ke lsey 1 MG oral 0-08 by mouth 2 Seyb old Tablet 14:38: times 18 daily Cyclobenzap 2020-07 Yes 10mg Q.[id number] Take 10 mg Yolie rine HCl 10 0-08 [id number] by mouth 3 Seybold MG oral 14:38: 3D times Tablet 18 daily as needed Hydroxychlo 2020-07 Yes 200mg Take 200 K elsey roquine 0-08 mg by Seybold Sulfate 200 14:38: mouth 2 MG oral 18 times Tablet daily Tramadol 2020-07 Yes 50mg Take 50 mg Stevan sey HCl 50 MG 0-08 by mouth Seybol d oral Tablet 14:38: 18 Multiple 2020-07 Yes Take by Yolie Vitamins-Mi 0-08 mouth Seybold nerals 14:38: (MULTIVITAL 18 OR) Alprazolam 2020-07 Yes 1mg Take 1 mg Ke lsey 1 MG oral 0-08 by mouth 2 Seyb old Tablet 14:38: times 18 daily Cyclobenzap 2020-07 Yes 10mg Q.[id number] Take 10 mg Yolie rine HCl 10 0-08 [id number] by mouth 3 Seybold MG oral 14:38: 3D times Tablet 18 daily as needed Hydroxychlo 2020-07 Yes 200mg Take 200 K elsey roquine 0-08 mg by Seybold Sulfate 200 14:38: mouth 2 MG oral 18 times Tablet daily Tramadol 2020-07 Yes 50mg Take 50 mg Stevan sey HCl 50 MG 0-08 by mouth Seybol d oral Tablet 14:38: 18 Multiple 2020-07 Yes Take by Yolie Vitamins-Mi 0-08 mouth Seybold nerals 14:38: (MULTIVITAL 18 OR) Duloxetine 2020-07 Yes [id number] 60mg Take 1 K elsey HCl 60 MG 0-08 capsule Seybold oral Cap DR 00:00: (60 mg Particles 00 total) by mouth daily Lisinopril 2020-07 Yes 20mg Take 1 Kelse y 20 MG oral 0-08 tablet (20 Sey bold Tablet 00:00: mg total) 00 by mouth daily Duloxetine 2020-07 Yes [id number] 60mg Take 1 K elsey HCl 60 MG 0-08 capsule Seybold oral Cap DR 00:00: (60 mg Particles 00 total) by mouth daily DULoxetine 2020-07 Yes [id number] 30mg Take 30 mg Yolie HCl 30 MG 0-08 by mouth Seybol d oral 00:00: daily Capsule 00 Delayed Release Sprinkle Duloxetine 2020-07 Yes [id number] 60mg Take 1 K elsey HCl 60 MG 0-08 capsule Seybold oral Cap DR 00:00: (60 mg Particles 00 total) by mouth daily hydrOXYchlo Yes 200mg Take 200 U nivers roQUINE 200 8-20 mg by ity of mg tablet 21:20: mouth. [address] Branch zolpidem Yes 12.5mg Take 12.5 Un katie 12.5 mg CR 8-20 mg by ity of tablet 21:19: mouth at [place] 55 bedtime as Medical needed for Branch Sleep. pilocarpine Yes 5mg Take 5 mg U nivers 5 mg tablet 8-20 by mouth. ity of 21:19: [address] Branch PILOCARPINE Yes 5mg Take 5 mg K elsey HCL, ORAL, 8-20 by mouth Seybo ld 5 MG oral 00:00: Tablet 00 PILOCARPINE 2020-0 Yes 5mg Take 5 mg K elsey HCL, ORAL, 8-20 by mouth Seybo ld 5 MG oral 00:00: Tablet 00 PILOCARPINE 0 Yes 5mg Take 5 mg K elsey HCL, ORAL, 8-20 by mouth Seybo ld 5 MG oral 00:00: Tablet 00 predniSONE Yes Yolie 5 MG oral 8-10 Seybold Tablet 00:00: 00 predniSONE 2020-0 Yes TAKE 1 2 Stevan sey 5 MG oral 8-10 TABLETS BY Seyb old Tablet 00:00: MOUTH 00 DAILY NEEDED FOR JOINT PAIN predniSONE 2020-0 Yes Yolie 5 MG oral 8-10 Seybold Tablet 00:00: 00 predniSONE 2020-0 Yes 5mg 1 tablet Met hodi (DELTASONE) 8-10 ([address] 5 mg tablet 00:00: total) as H ospita 00 needed l (joint pain). Lisinopril 0 Yes TAKE 1 Kelse y 10 MG oral 7-23 TABLET BY Seyb old Tablet 00:00: MOUTH 00 EVERY DAY Lisinopril 2020-0 Yes TAKE 1 Kelse y 10 MG oral 7-23 TABLET BY Seyb old Tablet 00:00: MOUTH 00 EVERY DAY Lisinopril 2020-0 Yes TAKE 1 Kelse y 10 MG oral 7-23 TABLET BY Seyb old Tablet 00:00: MOUTH 00 EVERY DAY Meloxicam 2020-0 2020- No 15mg Take 1 Kelse y 15 MG oral 5-14 10-08 tablet (15 Se ybold Tablet 00:00: 00:00 mg total) 00 :00 by mouth daily predniSONE 2020-0 2020- No [id number] Take three Yolie 20 MG oral 4-09 10-08 tablets by Se ybold tablet 00:00: 00:00 mouth 00 :00 daily for 7 days Zolpidem 2020-0 Yes 12.5mg Take 12.5 Ke lsey Tartrate 3-24 mg by Seybold 12.5 MG 00:00: mouth at oral Tab CR 00 bedtime Zolpidem 2020-0 Yes 12.5mg Take 12.5 Ke lsey Tartrate 3-24 mg by Seybold 12.5 MG 00:00: mouth at oral Tab CR 00 bedtime Zolpidem 2020-0 Yes 12.5mg Take 12.5 Ke lsey Tartrate 3-24 mg by Seybold 12.5 MG 00:00: mouth at oral Tab CR 00 bedtime DULoxetine 2020-0 Yes 60mg Take 60 mg U nivers 60 mg 2-18 by mouth. ity of capsule 00:00: [address] Diltiazem 2020-0 Yes 240mg Take 240 Stevan sey HCl Coated 2-18 mg by Seybold Beads 240 00:00: mouth MG oral 00 daily Capsule 24 Hour Sustained Release Diltiazem 2020-0 Yes 240mg Take 240 Stevan sey HCl Coated 2-18 mg by Seybold Beads 240 00:00: mouth MG oral 00 daily Capsule 24 Hour Sustained Release Diltiazem 2020-0 Yes 240mg Take 240 Stevan sey HCl Coated 2-18 mg by Seybold Beads 240 00:00: mouth MG oral 00 daily Capsule 24 Hour Sustained Release Duloxetine 2020-0 202- No 60mg Take 60 mg Yolie HCl 60 MG 2-18 10-08 by mouth Seybo ld oral Cap DR 00:00: 00:00 daily Particles 00 :00 Duloxetine 2020-0 2020- No 60mg Take 60 mg Yolie HCl 60 MG 2-18 10-08 by mouth Seybo ld oral Cap DR 00:00: 00:00 Particles 00 :00 Amoxicillin 2020-0 Yes 1{tbl} Take 1 Ke lsey -Pot 1-26 tablet by Seybold Clavulanate 00:00: mouth 2 875-125 MG 00 times oral Tablet daily Amoxicillin 2020-0 Yes 1{tbl} Take 1 Ke lsey -Pot 1-26 tablet by Seybold Clavulanate 00:00: mouth 2 875-125 MG 00 times oral Tablet daily Amoxicillin 2020-0 2- No 1{tbl} Take 1 K elsey -Pot 1-26 01-27 tablet by Seybold Clavulanate 00:00: 00:00 mouth 2 875-125 MG 00 :00 times oral Tablet daily meloxicam 2019-07 Yes [id number] TAKE 1 Met hodi (MOBIC) 15 0-[address] mg tablet 00:00: MOUTH Hospita 00 EVERY DAY l Meloxicam 2019-07 Yes TAKE 1 Yolie 15 MG oral 0-19 TABLET BY Seyb old Tablet 00:00: MOUTH 00 EVERY DAY Meloxicam 2019-07 Yes TAKE 1 Yolie 15 MG oral 0-19 TABLET BY Seyb old Tablet 00:00: MOUTH 00 EVERY DAY Meloxicam 2019-07 Yes TAKE 1 Yolie 15 MG oral 0-19 TABLET BY Seyb old Tablet 00:00: MOUTH 00 EVERY DAY meloxicam 2019-07- No [id number] TAKE 1 Me thodi (MOBIC) 15 0-19 08-[address] mg tablet 00:00: 00:00 MOUTH Hospit a 00 :00 EVERY DAY l meloxicam 2019-0 2019- No [id number] TAKE 1 Me thodi (MOBIC) 15 7-22 10-[address] mg tablet 00:00: 00:00 MOUTH Hospit a 00 :00 EVERY DAY l benzonatate 2019-2019- No [id number] 100mg Take 1 Univers (TESSALON 3-30 04-21 capsule by itleona JAMEEL) 100 00:00: 04:59 mouth 3 [place] mg capsule 00 :00 (three) Medica l times Branch daily as needed for Cough for up to 21 days. benzonatate 2019-2019- No [id number] 100mg Take 1 Univers (TESSALON 3-30 04-21 capsule by itleona JAMEEL) 100 00:00: 04:59 mouth 3 [place] mg capsule 00 :00 (three) Medica l times Branch daily as needed for Cough for up to 21 days. benzonatate 2019- No [id number] 100mg Take 1 Univers (TESSALON 3-30 04-21 capsule by itleona JAMEEL) 100 00:00: 04:59 mouth 3 [place] mg capsule 00 :00 (three) Medica l times Branch daily as needed for Cough for up to 21 days. ALPRAZolam 0 Yes TAKE 1 Unive rs 1 mg tablet 2-21 TABLET BY ity of 00:00: MOUTH [place] 00 TWICE A Medical DAY Branch NEEDED FOR ANXIETY ALPRAZolam 2019-0 Yes TAKE 1 Unive rs 1 mg tablet 2-21 TABLET BY ity of 00:00: MOUTH [place] 00 TWICE A Medical DAY Branch NEEDED FOR ANXIETY ALPRAZolam 2019-0 Yes TAKE 1 Unive rs 1 mg tablet 2-21 TABLET BY ity of 00:00: MOUTH [place] 00 TWICE A Medical DAY Branch NEEDED FOR ANXIETY ALPRAZolam 2020-0 Yes TAKE 1 Unive rs 1 mg tablet 2-21 TABLET BY ity of 00:00: MOUTH [place] 00 TWICE A Medical DAY Branch NEEDED FOR ANXIETY ALPRAZolam 2019-0 Yes TAKE 1 Unive rs 1 mg tablet 2-21 TABLET BY ity of 00:00: MOUTH [place] 00 TWICE A Medical DAY Branch NEEDED FOR ANXIETY ALPRAZolam 2019-0 Yes 1mg QD Take 1 Metho di (XANAX) 1 2-21 tablet (1 st MG tablet 00:00: mg total) Hos ilan 00 by mouth l nightly. lisinopril 2019-0 Yes TAKE 1 Unive rs 10 mg 1-13 TABLET BY ity of tablet 00:00: MOUTH [place] EVERY DAY Medical NEED Branch OFFICE VISIT meloxicam 2019-0 Yes 15mg Take 15 mg Un katie 15 mg 1-13 by mouth ity of tablet 00:00: daily. Medical Branch lisinopril 2019-0 Yes TAKE 1 Unive rs 10 mg 1-13 TABLET BY ity of tablet 00:00: MOUTH [place] EVERY DAY Medical NEED Branch OFFICE VISIT meloxicam 2019-0 Yes 15mg Take 15 mg Un katie 15 mg 1-13 by mouth ity of tablet 00:00: daily. [place] [facility] lisinopril 2019-0 Yes TAKE 1 Unive rs 10 mg 1-13 TABLET BY ity of tablet 00:00: MOUTH [place] EVERY DAY Medical NEED Branch OFFICE VISIT meloxicam 2019-0 Yes 15mg Take 15 mg Un katie 15 mg 1-13 by mouth ity of tablet 00:00: daily. [place] [facility] lisinopril 2019-0 Yes TAKE 1 Unive rs 10 mg 1-13 TABLET BY ity of tablet 00:00: MOUTH [place] EVERY DAY Medical NEED Branch OFFICE VISIT meloxicam 2019-0 Yes 15mg Take 15 mg Un katie 15 mg 1-13 by mouth ity of tablet 00:00: daily. [place] [facility] lisinopril 2019-0 Yes TAKE 1 Unive rs 10 mg 1-13 TABLET BY ity of tablet 00:00: MOUTH [place] EVERY DAY Medical NEED Branch OFFICE VISIT meloxicam 2019-0 Yes 15mg Take 15 mg Un katie 15 mg 1-13 by mouth ity of tablet 00:00: daily. [place] [facility] diclofenac 2019-0 Yes [id number] APPLY TO Methodi (VOLTAREN) [address] 1 % gel 00:00: AREA 4 Hospita 00 TIMES A l DAY Diclofenac 2019-0 Yes APPLY TO Uni vers Sodium 1 % 08 AFFECTED ity o f gel 00:00: AREA 4 [place] 00 TIMES A Medical DAY Branch Diclofenac 2020-0 Yes APPLY TO Uni vers Sodium 1 % 1-08 AFFECTED ity o f gel 00:00: AREA 4 [place] 00 TIMES A Medical DAY Branch Diclofenac 2020- Yes APPLY TO Uni vers Sodium 1 % 1-08 AFFECTED ity o f gel 00:00: AREA 4 [place] 00 TIMES A Medical DAY Branch Diclofenac 2020- Yes APPLY TO Uni vers Sodium 1 % 1-08 AFFECTED ity o f gel 00:00: AREA 4 [place] 00 TIMES A Medical DAY Branch Diclofenac 2019- Yes APPLY TO Uni vers Sodium 1 % 1-08 AFFECTED ity o f gel 00:00: AREA 4 [place] 00 TIMES A Medical DAY Branch diclofenac 2021- No [id number] APPLY TO [facility] (VOLTAREN) -02 28- AFFECTED st 1 % gel 00:00: 00:00 AREA 4 Hospita 00 :00 TIMES A l DAY cyclobenzap Yes [id number] TAKE 1 M ethodi rine 1-[address] (FLEXERIL) 00:00: MOUTH 2 Hosp shabnam 10 mg 00 (TWO) l tablet TIMES A DAY NEEDED FOR MUSCLE SPASMS FOR UP TO 90 DAYS. cyclobenzap 2021- No [id number] TAKE 1 Methodi rine 1-02 11- TABLET BY st (FLEXERIL) 00:00: 00:00 MOUTH 2 Hos ilan 10 mg 00 :00 (TWO) l tablet TIMES A DAY NEEDED FOR MUSCLE SPASMS FOR UP TO 90 DAYS. traMADol 2018-07 Yes [id number] 50mg Q6H Take 1 Method i (ULTRAM) 50 - tablet (50 st mg tablet 00:00: mg total) Hos ilan 00 by mouth l every 6 (six) hours as needed for moderate pain for up to 30 days .chronic pain. traMADol 2018-07- No [id number] 50mg Q6H Take 1 Metho di (ULTRAM) 50 1- 11-13 tablet (50 s t mg tablet 00:00: 00:00 mg total) Ho spita 00 :00 by mouth l every 6 (six) hours as needed for moderate pain for up to 30 days .chronic pain. DULoxetine Yes [id number] TAKE ONE [facility] (CYMBALTA) 4-[address] 60 MG 00:00: MOUTH Hospita capsule 00 EVERY DAY l ondansetron Yes PLACE Metho di ODT 4-[address] (ZOFRAN-ODT 00:00: TONGUE 1 Ho spita ) 4 MG 00 TABLET BY l disintegrat MOUTH ing tablet EVERY 8 HOURS FOR NAUSEA DULoxetine Yes [id number] TAKE ONE [facility] (CYMBALTA) 4-[address] 60 MG 00:00: MOUTH Hospita capsule 00 EVERY DAY l pilocarpine Yes 5mg Take 5 mg M ethodi (SALAGEN) 5 2-[address] MG tablet 18:22: daily. Hospit a 59 l furosemide Yes 20mg Take 20 mg M ethodi (LASIX) 20 2-[address] mg tablet 18:22: once as Hospi ta 59 needed. l diltiazem Yes 240mg QD Take 240 Met hodi CD 8-[address] (CardIZEM 00:00: mouth Hospita CD) 240 MG 00 daily. l 24 hr capsule cyclobenzap Yes TAKE 1 Meth velasquez rine 8-13 TABLET (10 st (FLEXERIL) 00:00: MG TOTAL) Ho spita 10 mg 00 BY MOUTH l tablet NIGHTLY NEEDED FOR MUSCLE SPASMS FOR UP TO 90 DAYS. cyclobenzap Yes TAKE 1 Univ ers rine 10 mg 8-13 TABLET BY ity of tablet 00:00: MOUTH (TWO) Medical TIMES A Branch DAY NEEDED FOR MUSCLE SPASMS FOR UP TO 90 DAYS. cyclobenzap Yes TAKE 1 Univ ers rine 10 mg 8-13 TABLET BY ity of tablet 00:00: MOUTH (TWO) Medical TIMES A Branch DAY NEEDED FOR MUSCLE SPASMS FOR UP TO 90 DAYS. cyclobenzap Yes TAKE 1 Univ ers rine 10 mg 8-13 TABLET BY ity of tablet 00:00: MOUTH (TWO) Medical TIMES A Branch DAY NEEDED FOR MUSCLE SPASMS FOR UP TO 90 DAYS. cyclobenzap Yes TAKE 1 Univ ers rine 10 mg 8-13 TABLET BY ity of tablet 00:00: MOUTH 2 (TWO) Medical TIMES A Branch DAY NEEDED FOR MUSCLE SPASMS FOR UP TO 90 DAYS. cyclobenzap Yes TAKE 1 Univ ers rine 10 mg 8-13 TABLET BY ity of tablet 00:00: MOUTH 2 [place] 00 (TWO) Medical TIMES A Branch DAY NEEDED FOR MUSCLE SPASMS FOR UP TO 90 DAYS. cyclobenzap Yes TAKE 1 Meth velasquez rine 8-13 TABLET (10 st (FLEXERIL) 00:00: MG TOTAL) Ho spita 10 mg 00 BY MOUTH l tablet NIGHTLY NEEDED FOR MUSCLE SPASMS FOR UP TO 90 DAYS. alprazolam alprazolam No alprazolam [facility]min 1 mg tablet 1 mg tablet 1 mg O rthope TAKE 1-2 TAKE 1-2 tablet dic TABLET BY TABLET BY TAKE 1-2 S ports MOUTH TWICE MOUTH TWICE TABLET BY Medicin A DAY A DAY MOUTH e NEEDED FOR NEEDED FOR TWICE A ANXIETY ANXIETY DAY NEEDED FOR ANXIETY azathioprin azathioprin No azathiopri Y[facility]min e 50 mg e 50 mg ne 50 mg Ortho pe tablet Take tablet Take tablet dic 1 tablet 1 tablet Take 1 Sport s every day every day tablet Med icin by oral by oral every day e route for route for by oral 30 days. 30 days. route for 30 days. BD BD No BD Y[facility]min Ultra-Fine Ultra-Fine Ultra-Fine [facility] Micro Pen Micro Pen Micro Pen dic Needle 32 Needle 32 Needle 32 Sports gauge x gauge x gauge x Medici n 07/24" FOR 07/24" FOR 07/24" FOR e USE WITH USE WITH USE WITH SAXENDA ONE SAXENDA ONE SAXENDA NEEDLE NEEDLE ONE NEEDLE DAILY DAILY DAILY cyclobenzap cyclobenzap No cyclobenza Yazmin rine 10 mg rine 10 mg tyler 10 Orth[facility] tablet TAKE tablet TAKE mg tablet dic 1 TABLET BY 1 TABLET BY TAKE 1 Sports MOUTH TWICE MOUTH TWICE TABLET BY Medicin A DAY A DAY MOUTH e NEEDED NEEDED TWICE A DAY NEEDED duloxetine duloxetine No duloxetine Yazmin 60 mg 60 mg 60 mg Orth[facility] capsule,del capsule,del capsule,de dic ayed ayed layed Sports release release release Medici n TAKE 1 TAKE 1 TAKE 1 e CAPSULE BY CAPSULE BY CAPSULE BY MOUTH EVERY MOUTH EVERY MOUTH DAY DAY EVERY DAY ergocalcife ergocalcife No ergocalcif Yazmin rol rol gisele [facility] (vitamin (vitamin (vitamin dic D2) 1,250 D2) 1,250 D2) 1,250 Sports mcg (50,000 mcg (50,000 mcg M edicin unit) unit) (50,000 e capsule capsule unit) Take 1 Take 1 capsule capsule capsule Take 1 every week every week capsule by oral by oral every week route for route for by oral 90 days. 90 days. route for 90 days. hydrocodone hydrocodone No hydrocodon Yazmin 10 10 e 10 [facility] mg-acetamin mg-acetamin mg-acetami dic ophen 325 ophen 325 nophen 325 Sports mg tablet mg tablet mg tablet Medicin PLEASE SEE PLEASE SEE PLEASE SEE e ATTACHED ATTACHED ATTACHED FOR FOR FOR DETAILED DETAILED DETAILED DIRECTIONS DIRECTIONS DIRECTIONS hydroxychlo hydroxychlo No hydroxychl Yazmin roquine 200 roquine 200 oroquine Orthope mg tablet mg tablet 200 mg dic TAKE 1 TAKE 1 tablet Sports TABLET BY TABLET BY TAKE 1 Med icin MOUTH TWICE MOUTH TWICE TABLET BY e A DAY A DAY MOUTH TWICE A DAY lisinopril lisinopril No lisinopril Yazmin 20 mg 20 mg 20 mg Orthope tablet TAKE tablet TAKE tablet dic 1 TABLET BY 1 TABLET BY TAKE 1 Sports MOUTH EVERY MOUTH EVERY TABLET BY Medicin DAY DAY MOUTH e EVERY DAY meloxicam meloxicam No meloxicam Yazmin 15 mg 15 mg 15 mg [facility] tablet TAKE tablet TAKE tablet dic 1 TABLET BY 1 TABLET BY TAKE 1 Sports MOUTH EVERY MOUTH EVERY TABLET BY Medicin DAY DAY MOUTH e NEEDED FOR NEEDED FOR EVERY DAY JOINT PAIN JOINT PAIN NEEDED FOR JOINT PAIN pilocarpine pilocarpine No pilocarpin Yazmin 5 mg tablet 5 mg tablet e 5 mg Orth[facility] Take 1/2 Take 1/2 tablet dic tablet by tablet by Take 1/2 S ports mouth twice mouth twice tablet by Medicin a day a day mouth e twice a day prednisone prednisone No prednisone Yazmin 5 mg tablet 5 mg tablet 5 mg O rthope TAKE 4 TAB TAKE 4 TAB tablet d ic FOR 2 DAYS FOR 2 DAYS TAKE 4 TAB Sports THEN 3 TABS THEN 3 TABS FOR 2 DAYS Medicin FOR 2 DAYS FOR 2 DAYS THEN 3 e THEN 2 TABS THEN 2 TABS TABS FOR 2 FOR 2 DAYS FOR 2 DAYS DAYS THEN THEN 1 TAB THEN 1 TAB 2 TABS FOR FOR 2 DAYS FOR 2 DAYS 2 DAYS THEN 1 TAB FOR 2 DAYS promethazin promethazin No promethazi Yazmin e 6.25 e 6.25 ne 6.25 Orthope mg-codeine mg-codeine mg-codeine dic 10 mg/5 mL 10 mg/5 mL 10 mg/5 mL Sports syrup TAKE syrup TAKE syrup TAKE Medicin 5 ML BY 5 ML BY 5 ML BY e MOUTH EVERY MOUTH EVERY MOUTH 4 HOURS 4 HOURS EVERY 4 NEEDED FOR NEEDED FOR HOURS COUGH COUGH NEEDED FOR COUGH risedronate risedronate No risedronat Yazmin 150 mg 150 mg e 150 mg Orth[facility] tablet TAKE tablet TAKE tablet dic 1 TABLET BY 1 TABLET BY TAKE 1 Sports MOUTH ONCE MOUTH ONCE TABLET BY Medicin A MONTH A MONTH MOUTH ONCE e A MONTH tramadol 50 tramadol 50 No tramadol Yazmin mg tablet mg tablet 50 mg Orth ope TAKE 1 TAKE 1 tablet dic TABLET BY TABLET BY TAKE 1 Spo rts MOUTH EVERY MOUTH EVERY TABLET BY Medicin 6 HOURS 6 HOURS MOUTH e NEEDED NEEDED EVERY 6 HOURS NEEDED zinc zinc No zinc Yazmin gluconate gluconate gluconate Orthope 30 mg 30 mg 30 mg dic tablet tablet tablet Sports Medicin e acetaminoph acetaminoph No acetaminop Yazmin en 300 en 300 hen 300 Orth[facility] mg-codeine mg-codeine mg-codeine dic 30 mg 30 mg 30 mg Sports tablet TAKE tablet TAKE tablet Medicin 1 TABLET BY 1 TABLET BY TAKE 1 e MOUTH EVERY MOUTH EVERY TABLET BY 6 HOURS 6 HOURS MOUTH NEEDED NEEDED EVERY 6 HOURS NEEDED alprazolam alprazolam No alprazolam Yazmin 1 mg tablet 1 mg tablet 1 mg O rthope TAKE 1-2 TAKE 1-2 tablet dic TABLET BY TABLET BY TAKE 1-2 S ports MOUTH TWICE MOUTH TWICE TABLET BY Medicin A DAY A DAY MOUTH e NEEDED FOR NEEDED FOR TWICE A ANXIETY ANXIETY DAY NEEDED FOR ANXIETY BD BD No BD Y[facility] Ultra-Fine Ultra-Fine Ultra-Fine [facility] Micro Pen Micro Pen Micro Pen dic Needle 32 Needle 32 Needle 32 Sports gauge x gauge x gauge x Medici n 07/24" FOR 07/24" FOR 07/24" FOR e USE WITH USE WITH USE WITH SAXENDA ONE SAXENDA ONE SAXENDA NEEDLE NEEDLE ONE NEEDLE DAILY DAILY DAILY cyclobenzap cyclobenzap No cyclobenza Yazmin rine 10 mg rine 10 mg tyler 10 [facility] tablet TAKE tablet TAKE mg tablet dic 1 TABLET BY 1 TABLET BY TAKE 1 Sports MOUTH TWICE MOUTH TWICE TABLET BY Medicin A DAY A DAY MOUTH e NEEDED NEEDED TWICE A DAY NEEDED duloxetine duloxetine No duloxetine Yazmin 30 mg 30 mg 30 mg [facility] capsule,del capsule,del capsule,de dic ayed ayed layed Sports release release release Medici n TAKE 1 TAKE 1 TAKE 1 e CAPSULE BY CAPSULE BY CAPSULE BY MOUTH EVERY MOUTH EVERY MOUTH DAY DAY EVERY DAY hydroxychlo hydroxychlo No hydroxychl Yazmin roquine 200 roquine 200 oroquine [facility] mg tablet mg tablet 200 mg dic TAKE 1 TAKE 1 tablet Sports TABLET BY TABLET BY TAKE 1 Med icin MOUTH TWICE MOUTH TWICE TABLET BY e A DAY A DAY MOUTH TWICE A DAY lisinopril lisinopril No lisinopril Yazmin 20 mg 20 mg 20 mg [facility] tablet TAKE tablet TAKE tablet dic 1 TABLET BY 1 TABLET BY TAKE 1 Sports MOUTH EVERY MOUTH EVERY TABLET BY Medicin DAY DAY MOUTH e EVERY DAY meloxicam meloxicam No meloxicam Yazmin 15 mg 15 mg 15 mg [facility] tablet TAKE tablet TAKE tablet dic 1 TABLET BY 1 TABLET BY TAKE 1 Sports MOUTH EVERY MOUTH EVERY TABLET BY Medicin DAY DAY MOUTH e NEEDED FOR NEEDED FOR EVERY DAY JOINT PAIN JOINT PAIN NEEDED FOR JOINT PAIN prednisone prednisone No prednisone Yazmin 5 mg tablet 5 mg tablet 5 mg O rthope Take Take tablet dic 4-3-2-1 4-3-2-1 Take Sports tablets in tablets in 4-3-2-1 Medicin am with am with tablets in e food for food for am with 2-2-2-2 2-2-2-2 food for days each days each 2-2-2-2 dose dose days each dose promethazin promethazin No promethazi Yazmin e 6.25 e 6.25 ne 6.25 Orthope mg-codeine mg-codeine mg-codeine dic 10 mg/5 mL 10 mg/5 mL 10 mg/5 mL Sports syrup TAKE syrup TAKE syrup TAKE Medicin 5 ML BY 5 ML BY 5 ML BY e MOUTH EVERY MOUTH EVERY MOUTH 4 HOURS 4 HOURS EVERY 4 NEEDED FOR NEEDED FOR HOURS COUGH COUGH NEEDED FOR COUGH risedronate risedronate No risedronat Yazmin 150 mg 150 mg e 150 mg [facility] tablet 1 tablet 1 tablet 1 dic tablet by tablet by tablet by Sports mouth once mouth once mouth once Medicin a month a month a month e Salagen Salagen No Salagen Yazmin (pilocarpin (pilocarpin (pilocarpi Orthope e) 5 mg e) 5 mg ne) 5 mg dic tablet Take tablet Take tablet Sports 1/2 tablet 1/2 tablet Take 1/2 Medicin by mouth by mouth tablet by e twice a day twice a day mouth twice a day Saxenda 3 Saxenda 3 No Saxenda 3 Yazmin mg/0.5 mL mg/0.5 mL mg/0.5 mL Orthope (18 mg/3 (18 mg/3 (18 mg/3 dic mL) mL) mL) Sports subcutaneou subcutaneou subcutaneo Medicin s pen s pen us pen e injector injector injector PLEASE SEE PLEASE SEE PLEASE SEE ATTACHED ATTACHED ATTACHED FOR FOR FOR DETAILED DETAILED DETAILED DIRECTIONS DIRECTIONS DIRECTIONS tramadol 50 tramadol 50 No tramadol Yazmin mg tablet mg tablet 50 mg Orth ope TAKE 1 TAKE 1 tablet dic TABLET BY TABLET BY TAKE 1 Spo rts MOUTH EVERY MOUTH EVERY TABLET BY Medicin 6 HOURS 6 HOURS MOUTH e NEEDED NEEDED EVERY 6 HOURS NEEDED zinc zinc No zinc Yazmin gluconate gluconate gluconate Orth[facility] 30 mg 30 mg 30 mg dic tablet tablet tablet Sports Medicin e acetaminoph acetaminoph No acetaminop Yazmin en 300 en 300 hen 300 Orthope mg-codeine mg-codeine mg-codeine dic 30 mg 30 mg 30 mg Sports tablet TAKE tablet TAKE tablet Medicin 1 TABLET BY 1 TABLET BY TAKE 1 e MOUTH EVERY MOUTH EVERY TABLET BY 6 HOURS 6 HOURS MOUTH NEEDED NEEDED EVERY 6 HOURS NEEDED Immunizations Ordered Filled Immunization Date Status Comments Sour e Immunization Name Name ELLIOTT COVID-19 2022-05-23 Completed [facility] BIVALENT 00:00:00 Hospital BOOSTER VACCINATION FLUCELVAX QUAD PF 2022-05-[address] 00:[facility]00 [facility] influenza, influenza, 2022-04-10 Completed [facility] dic injectable, injectable, 00:00:00 Sports Medic ine quadrivalent quadrivalent influenza, influenza, 2022-04-10 Completed Y[facility] dic injectable, injectable, 00:00:00 Sports Medic ine quadrivalent quadrivalent influenza, influenza, 2022-03-21 Completed [facility] dic injectable, injectable, 00:00:00 Sports Medic ine quadrivalent quadrivalent influenza, influenza, 2022-03-21 Completed [facility] dic injectable, injectable, 00:00:00 Sports Medic ine quadrivalent quadrivalent PFIZER COVID-19 2020-11-02 Completed [facility] VACC[facility] 00:00:00 Hospital Covid-19 Vaccine 2020-10-12 Completed Yolie perdomobold (Pfizer), Mrna-lnp, 00:00:00 [facility], Pf, 30mcg/0.3ml,IM Covid-19 Vaccine 2020-10-12 Completed Y[facility]ie perdomobold (Pfizer), Mrna-lnp, 00:00:00 [place] [facility], Pf, 30mcg/0.3ml,IM Covid-19 Vaccine 2020-10-12 Completed Y[facility]ie perdomobold (LiveSafe), Mrna-lnp, 00:00:00 [place] [facility], Pf, 30mcg/0.3ml,IM Covid-19 Vaccine 2020-10-12 Completed Yolie perdomobold (Pfizer), Mrna-lnp, 00:00:00 [place] [facility], Pf, 30mcg/0.3ml,IM PFIZER COVID-19 2020-10-12 Completed [facility] VACCINATION 00:00:00 Hospital Vital Signs Vital Name Observation Time Observation Value Comments Source BP Diastolic 2022-05-01 00:00:00 105 mm[Hg] [facility] Height 2022-05-01 00:00:00 63 [in_i] [facility] BP Systolic 2022-05-01 00:00:00 128 mm[Hg] [facility] Systolic blood 2021-08-16 21:20:00 136 mm[Hg] Yolie Seybold pressure Diastolic blood 2021-08-16 21:20:00 94 mm[Hg] Kelse y Seybold pressure Heart rate 2021-08-16 21:20:00 103 /min Yolie salas Body temperature 2021-08-16 21:20:00 35.72 Asmita Beth ey Seybold Respiratory rate 2021-08-16 21:20:00 16 /min Beth ey Seybold Body height 2021-08-16 21:20:00 154.9 cm Yolie salas Body weight 2021-08-16 21:20:00 98.884 kg Yolie salas BMI 2021-08-16 21:20:00 41.19 kg/m2 Yolie S eybold Systolic blood 2021-04-27 19:27:00 126 mm[Hg] Yolie Seybold pressure Diastolic blood 2021-04-27 19:27:00 90 mm[Hg] Kelse y Seybold pressure Heart rate 2021-04-27 19:27:00 107 /min Yolie S eybold Body temperature 2021-04-27 19:27:00 35.11 Asmita Beth ey Seybold Respiratory rate 2021-04-27 19:27:00 16 /min Beth ey Seybold Body height 2021-04-27 19:27:00 154.9 cm Yolie S eybold Body weight 2021-04-27 19:27:00 97.977 kg Yolie S eybold BMI 2021-04-27 19:27:00 40.81 kg/m2 Yolie S eybold Systolic blood 2021-04-27 19:27:00 126 mm[Hg] Yolie Seybold pressure Diastolic blood 2021-04-27 19:27:00 90 mm[Hg] Kelse y Seybold pressure Heart rate 2021-04-27 19:27:00 107 /min Yolie S eybold Body temperature 2021-04-27 19:27:00 35.11 Asmita Beth ey Seybold Respiratory rate 2021-04-27 19:27:00 16 /min Beth ey Seybold Body height 2021-04-27 19:27:00 154.9 cm Yolie S eybold Body weight 2021-04-27 19:27:00 97.977 kg Yolie S eybold BMI 2021-04-27 19:27:00 40.81 kg/m2 Yolie S eybold Height 2020-07-18 04:25:00 154.94 CM Weight 2020-07-18 04:25:00 91.62 KG Height 2020-07-17 07:48:00 154.94 CM Weight 2020-07-17 07:48:00 90.71 KG Systolic blood 2019-10-18 22:47:00 141 mm[Hg] Univer sity of pressure [facility] Diastolic blood 2019-10-18 22:47:00 92 mm[Hg] Unive rsity of pressure [place] [facility] Heart rate 2019-10-18 22:47:00 88 /min [facility] [place] [facility] Body temperature 2019-10-18 22:47:00 36.89 Asmita [facility] [place] [facility] Respiratory rate 2019-10-18 22:47:00 16 /min [facility] [place] [facility] Body height 2019-10-18 22:47:00 160 cm [facility] [place] [facility] Body weight 2019-10-18 22:47:00 83.462 kg [facility] [place] [facility] BMI 2019-10-18 22:47:00 32.59 kg/m2 [facility] [place] [facility] Oxygen saturation in 2019-10-18 22:47:00 97 /min University of Arterial blood by [facility] Pulse oximetry Branch Systolic blood 2019-10-18 22:47:00 141 mm[Hg] Univer sity of pressure [place] [facility] Diastolic blood 2019-10-18 22:47:00 92 mm[Hg] Unive rsity of pressure [place] [facility] Heart rate 2019-10-18 22:47:00 88 /min [facility] [place] [facility] Body temperature 2019-10-18 22:47:00 36.89 Asmita [facility] [place] [facility] Respiratory rate 2019-10-18 22:47:00 16 /min [facility] [place] [facility] Body height 2019-10-18 22:47:00 160 cm [facility] [place] [facility] Body weight 2019-10-18 22:47:00 83.462 kg [facility] [place] [facility] BMI 2019-10-18 22:47:00 32.59 kg/m2 [facility] [place] [facility] Oxygen saturation in 2019-10-18 22:47:00 97 /min [facility] Arterial blood by [facility] Pulse oximetry Branch Systolic blood 2022-06-02 17:24:26 120 mm[Hg] [facility] pressure Diastolic blood 2022-06-02 17:24:26 80 mm[Hg] Metho dist [facility] pressure Heart rate 2022-06-02 17:24:26 129 /min Methodis t [facility] Body temperature 2022-06-02 17:24:26 36.28 Asmita Meth odist [facility] Oxygen saturation in 2022-06-02 17:24:26 93 /min [facility] by Pulse oximetry Respiratory rate 2022-06-02 09:39:34 17 /min [facility] Body height 2022-05-30 15:00:00 160 cm [facility] Body weight 2022-05-30 15:00:00 95.255 kg [facility] BMI 2022-05-30 15:00:00 37.20 kg/m2 [facility] Procedures Procedure Date / Time Performing Clinician Source Performed XR SHOULDER 2+ VW RIGHT 2022-06-26 19:58:07 Chris Cary [facility] XR CERVICAL SPINE 2 OR 3 2022-06-26 19:58:07 Chris Cary [facility] VW MRI SHOULDER WO CONTRAST 2022-06-26 19:34:37 John Ayers [facility] LEFT CT ANGIOGRAM PE CHEST 2022-06-02 14:18:51 Yahaira Pagan [facility] CBC WITH PLATELET AND 2022-06-01 16:10:00 Yahaira Pagan [facility] DIFFERENTIAL BASIC METABOLIC PANEL 2022-06-01 16:10:00 Yahaira Pagan [facility] PHOSPHORUS LEVEL 2022-06-01 16:10:00 Yahaira Pagan ospital MAGNESIUM LEVEL 2022-06-01 16:10:00 Yahaira Pagan spital ESTIMATED GFR 2022-06-01 16:10:00 Yahaira Pagan spital URINE CULTURE 2022-05-31 18:10:00 Yahaira Pagan spital URINALYSIS SCREEN AND 2022-05-31 18:10:00 Yahaira Pagan [facility] MICROSCOPY, WITH REFLEX TO CULTURE XR SHOULDER 1 VW RIGHT 2022-05-31 18:09:30 Marta Akers [facility] CBC WITH PLATELET AND 2022-05-31 15:43:00 Marta Akers [facility] DIFFERENTIAL BASIC METABOLIC PANEL 2022-05-31 15:43:00 Yahaira Pagan [facility] ESTIMATED GFR 2022-05-31 15:43:00 Yahaira Pagan Ho spital CBC WITH PLATELET AND 2022-05-31 10:16:00 Yahaira Pagan [facility] DIFFERENTIAL BASIC METABOLIC PANEL 2022-05-31 10:16:00 Yahaira Pagan [facility] MAGNESIUM LEVEL 2022-05-31 10:16:00 Yahaira Pagan [facility] PHOSPHORUS LEVEL 2022-05-31 10:16:00 Yahaira Pagan ospital VITAMIN B12 LEVEL 2022-05-31 10:16:00 Yahaira Pagan [facility] ESTIMATED GFR 2022-05-31 10:16:00 Yahaira Pagan [facility] SURGICAL PATHOLOGY 2022-05-30 19:18:00 [facility] REQUEST CO AN ELECTIVE 2022-05-30 16:11:00 Guero Recio [facility] ENDOTRACHEAL AIRWAY ARTHROPLASTY, SHOULDER, 2022-05-30 16:02:00 [facility] TOTAL HC NERVE BLOCK, 2022-05-30 15:41:44 Randal Helms [facility] INTERSCALENE W IMG GUID ABO AND RH CONFIRMATION 2022-05-30 15:20:00 [facility] BY PROTOCOL POC GLUCOSE 2022-05-30 13:42:00 [facility] COVID-19 QUALITATIVE 2022-05-27 19:01:00 [facility] RT-PCR URINE CULTURE 2022-05-24 22:26:00 Evie sparrow [facility] Bessie URINALYSIS SCREEN AND 2022-05-24 18:58:00 [facility] MICROSCOPY, WITH REFLEX Bessie TO CULTURE HEMOGLOBIN A1C 2022-05-24 18:55:00 [facility] Bessie PARTIAL THROMBOPLASTIN 2022-05-24 18:55:00 [facility] TIME (PTT) Bessie PROTHROMBIN TIME WITH INR 2022-05-24 18:55:00 [facility] Bessie TYPE AND SCREEN 2022-05-24 18:55:00 Evie sparrow [facility] Bessie COMPREHENSIVE METABOLIC 2022-05-24 18:55:00 [facility] PANEL CBC WITH PLATELET AND 2022-05-24 18:55:00 [facility] DIFFERENTIAL ESTIMATED GFR 2022-05-24 18:55:00 John Ayers Ho [facility]ital SMEAR REVIEW 2022-05-24 18:55:00 John Ayers [facility] ECG PRE/POST OP 2022-05-24 18:44:50 John Ayers [facility]ital BONE DENSITY 2022-05-23 19:03:51 Cheri Marks Ho spital MAMMO BREAST SCREEN 2022-05-23 18:21:54 Provider, Not In [facility] TOMOSYNTHESIS BILATERAL System MRI SHOULDER WO CONTRAST 2022-04-29 19:25:19 Tammi Liao Met [facility] RIGHT CONSENT/REFUSAL FOR 2021-03-09 20:58:57 Doctor Unassigned, Lindsay [facility] DIAGNOSIS AND TREATMENT [facility] REMOVAL IF DEVC RT TOE 2020-07-18 00:00:00 [facility] Medical PHALANX OPEN Center REPOS RT TOE PHAL W/IF 2020-07-18 00:00:00 [facility] DEV OPN APPR Center POCT GRP A STREP 2019-10-18 23:08:00 [facility] (MOLECULAR) Medical Branch POCT FLU A AND B 2019-10-18 23:08:00 [facility] (MOLECULAR) Medical Branch CONSENT/REFUSAL FOR 2019-10-18 05:01:00 Doctor Unabay, Lindsay [facility] DIAGNOSIS AND TREATMENT [facility] Colonoscopy Thru Stoma 2017-12-28 00:00:00 Rl dawson [facility] Plan of Care Planned Activity Planned Date Details Comments Source Future Scheduled 2022-08-29 Screening for [facility] Test 15:36:55 malignant neoplasm of cervix (procedure) [code = [id number]] Future Scheduled 2022-08-29 COLONOSCOPY SCREENING [facility] Test 15:36:55 [code = COLONOSCOPY SCREENING] Future Scheduled 2022-08-29 SHINGLES VACCINES (1 Met [facility] Test 15:36:55 of 2) [code = SHINGLES VACCINES (1 of 2)] Future Scheduled 2022-08-29 BREAST CANCER [facility] Test 15:36:55 SCREENING [code = BREAST CANCER SCREENING] Future Scheduled COVID-19 [facility]ACCINE (1) [facility] [code = COVID-19 VACCINE (1)] Future Scheduled Screening for [facility] Test malignant neoplasm of cervix (procedure) [code = 108831748] Future Scheduled BREAST CANCER [facility] Test SCREENING [code = BREAST CANCER SCREENING] Future Scheduled [facility] [code = COLONOSCOPY SCREENING] Future Scheduled [facility]INES [facility] (#1) [code = SHINGLES VACCINES (#1)] Future Scheduled INFLUENZA VACCINE [facility] Test [code = INFLUENZA VACCINE] Encounters Start End Encounter Admission Attending Care Care Encounter Source Date/Time Date/Time Type Type Clinicians Facility Department ID 2022-08-29 2022-08-29 Outpatient YOLIE KLINE [id number] Yolie 00:00:00 00:00:00 RICARDO crawford 2022-08-29 2022-08-29 Naye Gomez, [id number] Methodi 00:00:00 00:00:00 Only Aubrie [id number] [id number] Hospit a .[id number] l .8 2022-08-08 2022-08-08 Naye Gomez, [id number] Methodi 00:00:00 00:00:00 Only Aubrie [id number] [id number] Hospit a .[id number] l .8 2022-08-05 2022-08-05 Naye Gomez, 1.2.840.1 [id number] 6461 Methodi 00:00:00 00:00:00 [address]rie 17774.1.[address] 3.430.2.7 Hospit a .3.158051 l .8 2022-07-25 2022-07-25 Outpatient AO_Fehsenfe AOSM AOSM 503 0008-20 Yazmin 00:00:00 00:00:00 elizabeth_Elyssa_ 106481 [facility] 2022-07-25 2022-07-25 Naye Gomez, 1.2.840.1 [id number] 376799 8174 Methodi 00:00:00 00:00:00 Only Aubrie 67727.1.[address] 3.430.2.7 Hospit a .3.748179 l .8 2022-07-25 2022-07-25 Telephone Gomez, 1.2.840.1 [id number] 2100 679213 Methodi 00:00:00 00:00:[address] 3.430.2.7 Hospit a .3.768361 l .8 2022-07-25 2022-07-25 Orders Gomez, 1.2.840.1 [id number] 080249 0899 Methodi 00:00:00 00:00:00 Only Aubrie 09682.1.[address] 3.430.2.7 Hospit a .3.018811 l .8 2022-07-25 2022-07-25 Naye Gomez, 1.2.840.1 [id number] 626111 0747 Methodi 00:00:00 00:00:00 Only Aubrie 96238.1.[address] 3.430.2.7 Hospit a .3.608855 l .8 2022-07-24 2022-07-24 Outpatient AO_Fehsenfe AOSM AO 503 0008-20 Yazmin 00:00:00 00:00:00 ld_D_ 321224 Orthop e [facility] 2022-07-24 2022-07-24 Tammi AOSM [place] - Ortho [id number] 4 Yazmin 00:00:00 00:00:00 MD Mazin: Ana Gerard - Orthope 85702 AO_Ofc dic Russell [facility] [facility] Ana, elyssa [address] [address], [place] [address] , Ph. 2022-07-23 2022-07-23 Travel 1.2.840.1 1.2.595.702 9286 937788 Methodi 00:00:00 00:00:[address] 3.430.2.7 0.2.7.3.698 Ho spita .3.435039 084.8 l .8 2022-07-20 2022-07-20 [address]patient [address] CEBALLOS YOLIE YOLIE 116 [id number] Yolie 00:00:00 00:00:00 Seybol d 2022-07-03 2022-07-03 Telephone Dileep, 1.2.840.1 [id number] 2099 372349 Methodi 00:00:00 00:00:[address] 3.430.2.7 Hospit a .3.560405 l .8 2022-07-02 2022-07-02 Telephone Gomez, 1.2.840.1 [id number] 2099 299841 Methodi 00:00:00 00:00:[address] 3.430.2.7 Hospit a .3.992826 l .8 2022-06-26 2022-06-26 Office Chris Cary 1.2.840.1 [id number] 009 3551823 Methodi 14:10:00 16:35:[address]1.[address] 3.430.2.7 Hospit a .3.250436 l .8 2022-06-26 2022-06-26 Outpatient ANDRIA [facility] [id number] 810 [place] 00:00:00 00:00:00 JOHN [address] 2022-06-26 2022-06-26 Outpatient CHRIS CARY [facility] 2100 [id number] [place] 00:00:00 00:00:[address] 2022-06-26 2022-06-26 Outpatient CHRIS CARY [facility] 2100 [id number] [place] 00:00:00 00:00:[address] 2022-06-26 2022-06-26 Travel 1.2.840.1 1.2.719.437 3083 861092 Methodi 00:00:00 00:00:[address] 3.430.2.7 0.2.7.3.698 Ho spita .3.607964 084.8 l .8 2022-06-26 2022-06-26 Telephone Andria, 1.2.840.1 [id number] 2100 381626 Methodi 00:00:00 00:00:00 John Regan 30944.1.[address] 3.430.2.7 Hospit a .3.117611 l .8 2022-06-19 2022-06-19 Office Andria, 1.2.840.1 [id number] 242516 8039 Methodi 14:45:00 15:18:05 Visit John Regan 34194.1.[address] 3.430.2.7 Hospit a .3.119236 l .8 2022-06-19 2022-06-19 Outpatient [facility] [id number] 795 [place] 00:00:00 00:00:00 JOHN [address] 2022-06-19 2022-06-19 Outpatient [facility] [id number] 755 [place] 00:00:00 00:00:00 JOHN [address] 2022-06-19 2022-06-19 Travel 1.2.840.1 1.2.137.574 6098 831228 Methodi 00:00:00 00:00:[address] 3.430.2.7 0.2.7.3.698 Ho spita .3.759818 084.8 l .8 2022-06-11 2022-06-11 Outpatient YOLIE LONDON 47442 4236 Yolie 14:00:00 14:00:00 JUAN johnson 2022-06-10 2022-06-10 Outpatient FOG_Loncari AOSM AOSM 503 Yazmin 00:00:00 00:00:00 Gale 655187 Orth ope dic Sports Medicin e 2022-06-10 2022-06-10 Outpatient FOG_Loncari AOSM AOSM 503 8-20 Yazmin 00:00:00 00:00:00 Gale 011490 Orth ope dic Sports Medicin e 2022-06-04 2022-06-04 Telephone Dileep, 1.2.840.1 [id number] 2100 741127 Methodi 00:00:00 00:00:[address] 3.430.2.7 Hospit a .3.673624 l .8 2022-05-30 2022-06-02 [facility] [place] 1.2.840.1 [id number] 32 [id number] Methodi 06:26:00 14:11:00 Encounter Yahaira Pagan 35032.1.[address] 3.430.2.7 Hospit a .3.738599 l .8 2022-05-30 2022-06-02 Outpatient YAHAIRA PAGAN [facility] 021 2099 099117 [place] 00:00:00 00:00:[address] 2022-05-30 2022-05-30 Surgery [place], 1.2.840.1 [id number] 693990 7156 Methodi 10:40:00 14:10:00 [address] Regan 15477.1.[address] 3.430.2.7 Hospit a .3.582917 l .8 2022-05-30 2022-05-30 Anesthesia Randal Helms 1.2.840.1 1 [id number] Methodi 10:02:00 13:18:00 Event Evie Miller 88016.1.[address] 3.430.2.7 Hospit a .3.969777 l .8 2022-05-30 2022-05-30 Travel 1.2.840.1 1.2.510.757 0460 641929 Methodi 00:00:00 00:00:[address] 3.430.2.7 0.2.7.3.698 Ho spita .3.392004 084.8 l .8 2022-05-30 2022-05-30 Orders Dileep, 1.2.840.1 [id number] 694121 7069 Methodi 00:00:00 00:00:00 Only Jacqueline 06767.1.[address] 3.430.2.7 Hospit a .3.584775 l .8 2022-05-29 2022-05-29 Telephone Andria, 1.2.840.1 [id number] 2100 016995 Methodi 00:00:00 00:00:[address] Regan [address].1.[address] 3.430.2.7 Hospit a .3.987086 l .8 2022-05-28 2022-05-28 Jie Falk, 1.2.840.1 [id number] 2099 939004 Methodi 00:00:00 00:00:[address] 3.430.2.7 Hospit a .3.118161 l .8 2022-05-28 2022-05-28 Naye Falk 1.2.840.1 [id number] 170645 7274 Methodi 00:00:00 00:00:00 Only Jacqueline 92921.1.[address] 3.430.2.7 Hospit a .3.901799 l .8 2022-05-27 2022-05-27 Bianka Ayers, 1.2.840.1 [id number] 564653 9054 Methodi 15:10:00 15:20:[address]53.1.[address] 3.430.2.7 Hospit a .3.277336 l .8 2022-05-27 2022-05-27 [facility] [id number] 175 [place] 00:00:00 00:00:00 JOHN [address] 2022-05-27 2022-05-27 Jie Falk 1.2.840.1 [id number] 2099 683573 Methodi 00:00:00 00:00:[address] 3.430.2.7 Hospit a .3.673990 l .8 2022-05-24 2022-05-24 Pre-Admiss [place], 1.2.840.1 [id number] 713 8066798 Methodi 08:40:00 09:40:00 ion John Regan 80089.1.[address] Testing 3.430.2.7 Hospit a .3.490677 l .8 2022-05-24 2022-05-24 Outpatient ANDRIA [facility] [id number] 934 [place] 00:00:00 00:00:00 JOHN [address] 2022-05-24 2022-05-24 Travel 1.2.840.1 1.2.683.679 8414 291538 Methodi 00:00:00 00:00:[address] 3.430.2.7 0.2.7.3.698 [facility] .3.427832 084.8 l .8 2022-05-23 2022-05-23 Outpatient [facility] [id number] 118 [place] 00:00:00 00:00:[address] 2022-05-23 2022-05-23 Outpatient ELISA [facility] [id number] 058 [place] 00:00:00 00:00:00 FAYE [address] 2022-05-23 2022-05-23 Telephone Dileep 1.2.840.1 [id number] 2099 720084 Methodi 00:00:00 00:00:[address] 3.430.2.7 Hospit a .3.162021 l .8 2022-05-22 2022-05-22 Office Chris Cary 1.2.840.1 [id number] Methodi 15:00:00 16:28:21 Visit John Ayers 08402.1.[address] 3.430.2.7 Hospit a .3.247652 l .8 2022-05-22 2022-05-22 Outpatient YOLIE MILLS [id number] 34 Yolie 13:30:00 13:30:00 MEKA Jainramona sands 2022-05-22 2022-05-22 Outpatient CHRIS CARY [facility] 2100 [id number] [place] 00:00:00 00:00:[address] 2022-05-22 2022-05-22 Travel 1.2.840.1 1.2.354.375 1765 064566 Methodi 00:00:00 00:00:[address] 3.430.2.7 0.2.7.3.698 Ho spita .3.010148 084.8 l .8 2022-05-11 2022-05-11 Outpatient AO_Fehsenfe AOSM AOSM 503 [place] 00:00:00 00:00:00 Caro 22090822 Orthop e dic [facility] e 2022-05-10 2022-05-10 Transcribe Kendrick, 1.2.840.1 [id number] 346 0140725 Methodi 00:00:00 00:00:00 Orders Cheri 42456.1.[address] 3.430.2.7 Hospit a .3.916509 l .8 2022-05-10 2022-05-10 Travel 1.2.840.1 1.2.747.782 5575 399185 Methodi 00:00:00 00:00:[address] 3.430.2.7 0.2.7.3.698 Ho spita .3.896458 084.8 l .8 2022-05-06 2022-05-06 Outpatient YOLIE TOMLINSON [id number] 256 [place] 13:30:00 13:30:00 JOHN crawford 2022-05-03 2022-05-03 Transcribe Elisa, 1.2.840.1 [id number] 600 9934341 Methodi 00:00:00 00:00:00 Orders Faye Nichols 03828.1.[address] 3.430.2.7 Hospit a .3.258825 l .8 2022-05-01 2022-05-01 Outpatient FOG_Loncari AOSM AOSM 503 [place] 00:00:00 00:00:00 aquiles_Orly 400620 Orth ope dic Sports Medicin e 2022-05-01 2022-05-01 Tammi AOSM [place] - Ortho 20220420 2 [place] 00:00:00 00:00:00 MD Mazin: Rittman - Orthope 01451 AO_Ofc dic Russell [facility] [facility] [place], d [facility]in [address], [place] [address] , Ph. 2022-04-30 2022-04-30 Outpatient YOLIE TOMLINSON [id number] 201 [place]olie 13:30:00 13:30:00 JOHN Seybol d 2022-04-30 2022-04-30 Outpatient AO_Fehsenfe AOSM AOSM 503 0008-20 Yaz[place] 00:00:00 00:00:00 Caro 907444 Orthop e dic Sports Medicin e 2022-04-29 2022-04-29 Outpatient AO_Fehsenfe AOSM AOSM 503 0008-20 Yazmin 00:00:00 00:00:00 Caro 099326 Orthop e dic Sports Medicin e 2022-04-29 2022-04-29 Outpatient [facility] [id number] 171 [place] 00:00:00 00:00:00 TAMMI [address] 2022-04-17 2022-04-17 Outpatient YOLIE THORNE [id number] 82 Yolie 13:30:00 13:30:00 KAVON Seybol d 2022-03-11 2022-03-11 Travel 1.2.840.1 1.2.885.404 5261 016899 Methodi 00:00:00 00:00:[address] 3.430.2.7 0.2.7.3.698 Ho spita .3.483328 084.8 l .8 2022-03-08 2022-03-08 Refill [facility], 1.2.840.1 [id number] 310777 6880 Methodi 00:00:00 00:00:[address] 3.430.2.7 Hospit a .3.216621 l .8 2022-03-04 2022-03-04 Travel 1.2.840.1 1.2.840.889 4752 790772 Methodi 00:00:00 00:00:[address] 3.430.2.7 0.2.7.3.698 spita .3.314252 084.8 l .8 2022-02-20 2022-02-20 Transcribe Mazin, 1.2.840.1 [id number] 634 1986962 Methodi 00:00:00 00:00:00 Orders Tammi 31528.1.[address] 3.430.2.7 Hospit a .3.584799 l .8 2022-02-15 2022-02-15 Outpatient FOG_Loncari AOSM AOSM 503 7- Yazmin 00:00:00 00:00:00 ch_Dav_MD 643919 Orth ope dic Sports Medicin e 2022-02-13 2022-02-13 Outpatient AO_Fehsenfe AOSM AOSM 503 8- Yazmin 00:00:00 00:00:00 ld_D_ 858961 Orthop e dic Sports Medicin e 2022-02-12 2022-02-12 Outpatient AO_Fehsenfe AOSM AOSM 503 7- Yazmin 11:46:00 11:46:00 ld_D_ 374770 Orthop e dic Sports Medicin e 2022-02-11 2022-02-11 Outpatient AO_Fehsenfe AOSM AOSM 503 8-20 Y[place] 05:40:00 05:40:00 ld_D_ 316301 Orthop e dic Sports Medicin e 2022-02-06 2022-02-06 Outpatient YOLIE TOMLINSON [id number] 145 [place] 15:30:00 15:30:00 JOHN Seybol d 2022-02-06 2022-02-06 Outpatient YOLIE TOMLINSON [id number] 354 [place] 00:00:00 00:00:00 JOHN Seybol d 2022-01-23 2022-01-23 Outpatient LAB90 YOLIE URBANO [id number] 32 [place] 16:20:00 16:20:00 Seybol d 2022-01-23 2022-01-23 Office Diony Tomlinson 1.2.840.114 [id number] 8540 [place]ol[place] 15:30:00 16:00:00 Visit John Andino 350..13.13 samy Toussaint 1.2.7.2.686 [id number] 0 2022-01-22 2022-01-22 Outpatient YOLIE TOMLINSON [id number] 770 [place] 15:30:00 15:30:00 JOHN Seybol d 2022-01-14 2022-01-14 Outpatient YOLIE TOMLINSON [id number] 651 [place] 14:15:00 14:15:00 JOHN Seybol d 2022-01-10 2022-01-10 Outpatient YOLIE TOMLINSON [id number] 382 [place] 14:45:00 14:45:00 JOHN Seybol d 2022-01-10 2022-01-10 Outpatient YOLIE TOMLINSON [id number] 879 [place] 00:00:00 00:00:00 JOHN Seybol d 2021-11-01 2021-11-01 Outpatient SUDHA URBANO 108 [id number] [place] 00:00:00 00:00:00 MD GUS Seybol elyssa 2021-10-09 2021-10-09 Outpatient YOLIE TOMLINSON [id number] 378 [place] 00:00:00 00:00:00 JOHN Seybol d 2021-09-25 2021-09-25 Telephone Liliana 1.2.840.1 [id number] 448 [id number] Methodi 00:00:00 00:00:[address] [facility] 3.430.2.7 Hospi ta .3.726814 l .8 2021-09-11 2021-09-11 Travel 1.2.840.1 1.2.363.438 7809 820089 Methodi 00:00:00 00:00:[address] 3.430.2.7 0.2.7.3.698 Ho spita .3.537257 084.8 l .8 2021-08-29 2021-08-29 Outpatient YOLIE MARINO [id number] 98 [place] 00:00:00 00:00:00 TANO Seybol d 2021-08-20 2021-08-20 Outpatient YOLIE BARNES [id number] 759 [place] 11:30:00 11:30:00 MARTA Seybol d 2021-08-16 2021-08-16 Office Diony Tomlinson 1.2.840.114 [id number] 9205 [place] 15:45:00 16:15:00 Visit John Andino 350.1.13.13 Se ybold Somogyi 1.2.7.2.686 [id number] 0 2021-07-23 2021-07-23 Outpatient YOLIE MARINO [id number] 78 [place] 00:00:00 00:00:00 TANO Seybol d 2021-07-17 2021-07-17 Telemedici HARIDiony Bond 1.2.840.114 105 022258 Yolie 10:00:00 10:00:00 ne TANO Andino 350.1.13.13 Se ybold 1.2.7.2.686 [id number] 0 2021-07-16 2021-07-16 Outpatient YOLIE MARINO [id number] 74 [place] 00:00:00 00:00:00 TANO Seybol d 2021-07-14 2021-07-14 [address]patient [address] CEBALLOS 105 [id number] [place] 00:00:00 00:00:00 Seybol d 2021-07-02 2021-07-02 Outpatient LILIANA [facility] [id number] 0125 [place] 00:00:00 00:00:00 SALINA 851 Method i 2021-06-21 2021-06-21 Outpatient DOT CEBALLOS 104 [id number] Yolie 00:00:00 00:00:00 Seybol d 2021-06-20 2021-06-20 Outpatient LILIANA [facility] [id number] 4405 [place] 00:00:00 00:00:00 SALINA 388 Method i 2021-06-11 2021-06-11 Outpatient LILIANA [facility] [id number] 7069 [place] 00:00:00 00:00:00 SALINA 238 Method i 2021-05-22 2021-05-22 Outpatient YOLIE TOMLINSON [id number] 120 [place] 00:00:00 00:00:00 JOHN Seybol d 2021-05-20 2021-05-20 Emergency [facility] 064 [id number] 71 [place] 00:00:00 00:00:00 FIOR [address] 2021-05-17 2021-05-17 Outpatient NED YOILE URBANO [id number] 12 [place] 00:00:00 00:00:00 TANO Seybol d 2021-05-16 2021-05-16 Outpatient HARIVarun YOLIE URBANO [id number] [place] 00:00:00 00:00:00 TANO Seybol d 2021-05-07 2021-05-07 Outpatient HARIVarun YOLIE URBANO [id number] 73 [place] 00:00:00 00:00:00 TANO Seybol d 2021-04-27 2021-04-27 Outpatient LAB90 YOLIE URBANO [id number] 24 [place] 15:55:00 15:55:00 Seybol d 2021-04-27 2021-04-27 Office Diony Marino 1.2.840.114 [id number] 14:23:34 15:23:34 Visit Tano Andino 350.1.13.13 1.2.7.2.686 [id number] 0 2021-04-27 2021-04-27 Office Diony Marino 1.2.840.114 [id number] 270 [place] 14:23:34 15:23:34 Visit Tano Andino 350.1.13.13 ramonashavon 1.2.7.2.686 [id number] 0 2021-03-11 2021-03-11 Letter OFELIA Baez 1.2.840.114 [id number] 16 [facility] 00:00:00 00:00:00 (Out) Mirna BELTRAN 350[facility]1.13.10 [facility] 4.2.7.2.686 Mukesh as [phone] [address] 2021-03-09 2021-03-09 Outpatient R UNKNOWN, [facility] [id number] Univers 16:30:00 16:30:00 ATTENDING ity [facility] 2021-03-09 2021-03-09 Orders Doctor OFELIA 1.2.840.114 [id number] Univers 00:00:00 00:00:00 Only Unassigned, DEVIN 350.1.13.10 ity of [place] [facility] 4.2.7.2.686 Mukesh as [id number] [facility] [address] 2020-07-18 2020-07-18 Outpatient Haleigh ALEJANDROLilian, [facility] [id number] 483 [place] 04:18:00 07:01:00 GERMAN Garciaa [facility] 2020-06-27 2020-06-27 Outpatient Felix, [facility] MRIT [id number] [facility] 14:00:00 14:00:00 Sterling Mireles [facility] 2020-05-04 2020-05-04 Refill [facility], 1.2.840.1 [id number] 8345 Methodi 00:00:00 00:00:[address] 3.430.2.7 Hospit a .3.904707 l .8 2019-10-20 2019-10-20 OFELIA Okeefe 1.2.840.114 [id number] 83 00:00:00 00:00:00 (Out) Tricia DEVIN 350.1.13.10 [facility] 4.2.7.2.686 [id number] 019 2019-10-20 2019-10-20 OFELIA Okeefe 1.2.840.114 [id number] 83 Univers 00:00:00 00:00:00 (Out) Tricia BELTRAN 350.1.13.10 it y of HOSPITAL 4.2.7.2.686 Mukesh as [id number] [facility] [address] 2019-10-18 2019-10-18 Urgent Pob1, Acute [facility] 1.2.840.114 75 [id number] 17:30:02 17:50:02 [facility] 350.1.13.10 [place] 4.2.7.2.686 Professio [phone] nal [address] 2019-10-18 2019-10-18 Urgent Pob1, Acute Care Clinic [facility] 1. 2.840.114 [id number] [facility] 17:30:02 17:50:02 [facility] Gracie Pacheco [facility] 350.1 .13.10 ity of [place] 4.2.7.2.686 Mukesh as Professio [phone] Ne dical [facility] [address] 2019-10-18 2019-10-18 Outpatient R WINDY [facility] 201 [id number] Univers 17:40:00 17:40:00 , GRACIE it y of [facility] 2019-10-18 2019-10-18 Orders Doctor OFELIA 1.2.840.114 [id number] 00:00:00 00:00:00 Only Unassigned, DEVIN 350.1.13.10 [place] [facility] 4.2.7.2.686 [id number] 009 2019-10-18 2019-10-18 Orders Doctor OFELIA 1.2.840.114 [id number] 69 Univers 00:00:00 00:00:00 Only Unassigned, DEVIN 350.1.13.10 ity of [place] [facility] 4.2.7.2.686 Mukesh as [phone] [address] Results Test Description Test Time Test Comments Results Result Comments Source Surgical pathology request 2022-06-04 23:32:48 Test Item Value Reference Range Interpretation Comme nts Case number (test code = 6224298) [id number] Surgical pathology report (test code = See link below for PDF Lab R eport 3717) Result status (test code = 4297384) This is Final Report for [id number] 2503-4 [facility] [id number] 13:44:00 Test Item Value Reference Range Interpretation Comments POC glucose (test code 115 mg/dL 65-99 H Opera [facility] Name: = 56828-5) Toi Reynolds I D: [id number] able: [facility] Notified hog buyer Interpretation Abnormal (test code = 07093-8) [facility] RNA [Presence] in Respiratory specimen by TEVIN with probe [id number] 19:59:42 Test Item Value Reference Range Interpretation Comments SARS-CoV-2 (COVID-19) RNA Not detected [Presence] in Respiratory specimen by TEVIN with probe detection (test code = 48835-7) Whether patient is employed in a Unknown healthcare setting (test code = 98866-2) Whether the patient has symptoms Unknown related to condition of interest (test code = 03251-1) Whether the patient was Unknown hospitalized for condition of interest (test code = 83957-3) Whether the patient was admitted Unknown to intensive care unit (ICU) for condition of interest (test code = 23318-0) Whether patient resides in a Unknown congregate care setting (test code = 49026-8) status (test code = Unknown 26024-1) Date and time of symptom onset Unknown (test code = 43571-7) [facility] Pre/Post [id number] 02:06:52 Test Item Value Reference Range Interpretation Comments Ventricular rate (test 83 code = 253) Atrial rate (test code = 83 255) CO interval (test code = 128 266) QRSD interval (test code 76 = 260) QT interval (test code = 374 264) QTC interval (test code 439 = 265) P axis 1 (test code = 14 267) QRS axis 1 (test code = -4 268) T wave axis (test code = 30 270) EKG impression (test Normal sinus code = 273) rhythm-Low voltage QRS-Borderline [facility]ONALFB2020-07-18 04:53:00 Test Item Value Reference Range Interpretation Comments PREG UR (test code = PGU) NEGATIVE NEGATIVE - MRI L-SPINE W/O [id number] 15:25:00 [facility] : 1960 Sex: FPatient Name: MARIA R SCHULTZ Unit No: [id number] EXAMS: CPT CODE: [id number] MRI L-SPINE W/O CONT 14040 Location: A1 EXAM: MRI LUMBAR SPINE WITHOUT CONTRAST INDICATION: Lower back pain COMPARISON: None. TECHNIQUE: Multiplanar, multisequence noncontrast MR imaging of the lumbar spine. IV contrast: None. FINDINGS: The lumbar vertebral bodies are numbered, beginning with the most inferior, fully formed intervertebral disc space as L5-S1. No vertebral body height loss is identified. There are vertebral body hemangiomas within T12, L2, L3, L4 and S1. At T12-L1, no canal stenosis. No neural foraminal compromise. At L1-L2, there is mild canal stenosis secondary to annular bulging and redundancy of the ligamen david flavum. There is narrowing of the inferior aspect of the bilateral neural foramina secondary to annular bulging. At L2-L3, there is moderate canal stenosis secondary to annular bulging, with superimposed 4 mm central/left subarticular disc protrusion, and redundancy of the ligamentum flavum. Thereis crowding of the cauda equina nerve roots. There is narrowing of the inferior aspect of the bilateral neural foramina secondary to annular bulging At L3-L4, there is mild canal stenosis secondary to annular bulging, redundancy of the ligamentum flavum and slightly prominent posterior epidural fat. There is moderate bilateral neural foraminal narrowing secondary to annular bulging and facet enlargement. At L4-5, there is mild grade 1 anterolisthesis of L4 on L5. There is moderate/severe canal stenosis secondary to anterolisthesis, annular bulging and redundancy of the ligamentum flavum. There is crowding of the cauda equina nerve roots with some nerve root redundancy below. There is moderate bilateral neural foraminal narrowing secondary to annular bulging and facet enlargement. At L5-S1, there is narrowing of the anterior thecal sac secondary to annular bulging, without joana canal stenosis. There is moderate/severe left and mild right neural foraminal narrowing secondary to annular bulging and facet enlargement. There is conceivable encroachment upon the exiting left L5 nerve root. Spinal canal contents: The conus terminates at the level of L1, Name: MARIA R SCHULTZ [facility] Phys: Sterling Chandler MD [id number] : 1960 Age: 60 Sex: [place] [id number] Loc: [place].TMRI Exam Date: 06/27/2020 Status: REG CLI PH: FAX: PAGE 1 Signed Report(CONTINUED) Patient Name: MARIA R SCHULTZ Unit No: [id number] EXAMS: CPT CODE: [id number] MRI L-SPINE W/O CONT [id number] (Continued) normal. No abnormal signal within the imaged portions of the cord or conus. Paraspinal soft tissues: There is mild nonspecific edema within the dorsal subcutaneous fat. Otherwise, no abnormal edema within the dorsal paraspinous muscles or soft tissues. There are T2 hyperintense lesions within the kidneys bilaterally, incompletely imaged. They measure up to 4.9 cm within the left kidney. No suspicious imaging features are identified within the imaged portions. These may represent renal cysts. IMPRESSION: Multilevel lumbar spondylosis, which includes moderate/severe canal stenosis at L4-5, moderate canal stenosis at L2- L3, and mild canal stenosis at L1-L2 and L3-L4. Multilevel bilateral neural foraminal narrowing, worst at L3-4, L4-5 and L5-S1, as above. This includes a conceivable encroachment upon the exiting left L5 nerve root. Mild grade 1 anterolisthesis of L4 on L5. at 1525 Reported and signedby: Tomas Venegas MD CC: Sterling Washington MD Technologist: Linda Quintanilla Dt/Tm: 06/27/2020 (1525) by:[email or web address] Electronic Signature Date/Time: 06/27/2020 (1525)Orig Print D/T: S: 06/27/2020 (1528) Name: MARIA R SCHULTZ [facility] Phys: Sterling Chandler MD [address] : 1960 Age: 60 Sex: [place] [id number] Loc:[place].TMRI Exam Date: 06/27/2020 Status: REG CLI PH: FAX: PAGE 2 Signed Report- MRI C-SPINE W/O [id number] 15:14:00 [facility] : 1960 Sex: FPatient Name: MARIA R SCHULTZ Unit No: [id number] EXAMS: CPT CODE: [id number] MRI C-SPINE W/O CONT [id number] Location: A1 EXAM: MRI CERVICAL SPINE WITHOUT CONTRAST INDICATION: Neck pain COMPARISON: None. TECHNIQUE: Multiplanar, multisequence noncontrast MR imaging of the cervical spine. IV contrast: None. FINDINGS: There is straightening of the normal curvature of the cervical spine, which may be secondary to positioning. No vertebral body height loss is identified. The craniocervical junction demonstrates a normal appearance. At C2-C3, no canal stenosis. No neural foraminal compromise. At C3-C4, no canal stenosis. There is moderate left and mild right neural foraminal narrowing secondary to facet enlargement. There is conceivable encroachment upon the exiting left C4 nerve root. At C4-C5, there is mild grade 1 anterolisthesis of C4 on C5. No canal stenosis. There is mild left and moderate right neural foraminal narrowing secondary to uncovertebral hypertrophy and facet enlargement. There is conceivable encroachment upon the exiting right C5 nerve root. At C5-C6, there is mild grade 1 anterolisthesis of C5 on C6. No canal stenosis. There is mild left and moderate right neural foraminal narrowing secondary to uncovertebral hypertrophy/facet enlargement. There is conceivable encroachment upon the exiti ng right C6 nerve root. At C6-C7, there is mild canal stenosis secondary to a 2 mm central disc protrusion and mild redundancy of the ligamentum flavum. There is mild bilateral neural foraminal narrowing secondary to uncovertebral hypertrophy. At C7-T1, no canal stenosis. No neural foraminal compromise. Spinal canal contents: No abnormal signal within the imaged portions of the cord. Paraspinal soft tissues: No abnormal edema within the dorsal paraspinous muscles or soft tissues. No prevertebral edema. IMPRESSION: Name: MARIA R SCHULTZED Phys: Sterling Chandler MD [address] : 1960 Age: 60 Sex: [place] [phone] Loc: [place].[facility] Exam Date: 06/27/2020 Status: REG CLI PH: FAX: PAGE 1 Signed Report (CONTINUED) Patient Name: MARIA R SCHULTZ No: [id number] EXAMS: CPT CODE: [id number] MRI C- SPINE W/O CONT 32831 (Continued) Mild multilevel cervical spondylosis, with mild canal stenosis at C6-C7. This includes a small central disc protrusion at C6-C7. Multilevel bilateral neural foraminal narrowing, worst at C3-C4, C4-C5 and C5-6, as above. Mild grade 1 anterolisthesis of C4 on C5 and C5 on C6. at 1514 Reported and signed by: Tomas Venegas MD CC: Sterling Washington MD Technologist: Linda Pablo Trscr Dt/Tm: 06/27/2020 (1513) by:[email or web address] Electronic Signature Date/Time: 06/27/2020 (1513)Orig Print D/T: S: 06/27/2020 (1516) Name: MARIA R SCHULTZ FSED Phys: Sterling Chandler MD [address] : 1960 Age: 60 [place]: [place] [id number] Loc: [place] Exam Date: 06/27/2020 Status: REG CLI PH: FAX: PAGE 2 Signed ReportPOCT GRP A STREP (MOLECULAR)2019-10-18 23:18:00 Test Item Value Reference Range Interpretation Comments POCT GP A STREP (test Negative Negative - code = 12338-3) Negative KHOI (test code = KHOI) accurate development and interpretation of all internal controls Lab Interpretation Normal (test code = 91032-6) [facility]2019-10-18 23:18:00 Test Item Value Reference Range Interpretation Comments POCT INFLUENZA A (test Negative Negative - code = 3840) Negative POCT INFLUENZA B (test Negative Negative - code = 3841) Negative KHOI (test code = KHOI) accurate development and interpretation of all internal controls Lab Interpretation Normal (test code = 77845-3) [facility]
[2022-08-29] MEDS ORDERED: KETOROLAC 30 MG/ML INJ ONE (22:06)
[2022-08-29] MEDS ORDERED: METHYLPREDNISOLONE 125 MG INJ ONE (22:06)
[2022-08-29 22:08] LABS: Absolute Lymphocytes (CBC) 1.9 K/uL (0.7-4.9); Hematocrit 39.6 % (36.0-45.0); Lymphocytes % 16.8 % (15.3-44.8); MCV 87.8 fL (80-100); MPV 9.8 fL (7.6-11.3); RBC Red Blood Cell Count 4.51 M/uL (3.86-4.86)
[2022-08-29 22:20] LABS: Potassium 3.8 mmol/L (3.5-5.1)
--- NOTE | 2022-08-29 22:34 | RAD REPORT ---
EXAM DESCRIPTION: US - Extrem Venous W Compress Ruben - 08/29/2022 10:29 pm CLINICAL HISTORY: Pain Bilateral leg edema and swelling. COMPARISON: Extrem Venous W Compress Ruben dated 08/28/2018 TECHNIQUE: Real-time sonographic interrogation of the left and right lower extremity deep venous sys tems was performed. FINDINGS: Normal compressibility, flow augmentation, phasic flow and spontaneous flow is identified in both the left and right lower extremity deep venous systems. IMPRESSION: No sonographic evidence of left or right lower extremity deep venous thrombosis.
--- NOTE | 2022-08-29 23:59 | EDPHYS ---
Physician Documentation [facility] Name: Jaymie Schultz Age: 62 yrs Sex: Female : 1960 Arrival Date: 08/29/2022 Time: 21:03 Bed 7 Private MD: ED Physician Clitnon Smith HPI: 08/29 23:36 This 62 yrs old Female presents to ER via Wheelchair with complaints of Leg Pain, Knee rn Pain. 23:37 The patient presents with pain. The complaints affect the right leg and left leg. rn Onset: The symptoms/episode began/occurred at an unknown time. Modifying factors: The symptoms are alleviated by nothing. the symptoms are aggravated by nothing. Associated signs and symptoms: Pertinent positives: swelling, Pertinent negatives fever, rash, weakness. Severity of symptoms: At their worst the symptoms were moderate, in the emergency department the symptoms are unchanged. The patient has experienced similar episodes in the past. The patient has not recently seen a physician. Pt reports hx of lupus, RA, Sjogren's, who presents with days of bilateral leg pain and achiness, from feet to knees, face is tingling and left eye is twitching. Has been under a lot of stress lately. Not on steroids. Her medications have been changed recently and having trouble sleeping. No fever. NO trauma. No chest pain/sob.. Historical: - Allergies: 21:48 METHOTREXATE AND DERIVATIVES; jb4 21:48 Sulfa (Sulfonamide Antibiotics); jb4 21:48 Levofloxacin; jb4 21:48 Iodine; jb4 - Home Meds: 21:48 zolpidem 12.5 mg Oral TbMP 1 tab once daily [Active]; alprazolam 1 mg Oral tab twice a jb4 day [Active]; diltiazem HCl 240 mg Oral cpER 1 cap once daily [Active]; cyclobenzaprine 10 mg Oral tab 1 tab 2 times per day [Active]; hydroxychloroquine 200 mg Oral tab 2 times per day [Active]; lisinopril 1 mg/mL Oral soln 20 mL once daily [Active]; meloxicam Oral [Active]; Prednisone Oral [Active]; Tramadol Oral [Active]; - PMHx: 21:48 A fib with RVR; Atrial Fib; CVA; Hypertension; Lupus; Rheumatoid Arthritis; sjorgens jb4 syndrome; - Immunization history:: Adult Immunizations up to date. - Social history:: Smoking status: Patient denies any tobacco usage or history of. - Family history:: not pertinent. - Hospitalizations: : No recent hospitalization is reported. ROS: 23:37 Constitutional: Negative for fever, chills, and weight loss, Cardiovascular: Negative rn for chest pain, palpitations, and edema, Respiratory: Negative for shortness of breath, cough, wheezing, and pleuritic chest pain, Abdomen/GI: Negative for abdominal pain, nausea, vomiting, diarrhea, and constipation, MS/Extremity: Negative for injury and deformity, Skin: Negative for injury, rash, and discoloration, Neuro: Negative for headache, weakness, and seizure. Exam: 23:37 Constitutional: This is a well developed, well nourished patient who is awake, alert, rn appears anxious and uncomfortable. Head/Face: Normocephalic, atraumatic. Cardiovascular: Regular rate and rhythm. No pulse deficits. Respiratory: No increased work of breathing, no retractions or nasal flaring. Abdomen/GI: Soft, non-tender Skin: Warm, dry, no rash or cyanosis MS/ Extremity: Pulses equal, no cyanosis. Neurovascular intact. No focal swelling/effusions/skin changes. + mildly painful ROM of knees and hips bilaterally Neuro: Awake and alert, GCS 15, oriented to person, place, time, and situation. Cranial nerves II-XII grossly intact. Motor strength 5/5 in all extremities. Sensory grossly intact. Cerebellar exam normal. Vital Signs: 21:45 BP 157 / 71; Pulse 92; Resp 18; Temp 98.8(O); Pulse Ox 95% on R/A; Weight 79.38 kg (R); jb4 Height 5 ft. 2 in. (157.48 cm) (R); Pain 6/10; 23:07 BP 143 / 73; Pulse 89; Resp 18; Pulse Ox 93% on R/A; jb4 08/30 00:00 BP 143 / 71; Pulse 92; Resp 16; Pulse Ox 96% on R/A; jb4 08/29 21:45 Body Mass Index 32.01 (79.38 kg, 157.48 cm) [facility] MDM: 08/29 21:06 Patient medically screened. rn 23:57 Differential diagnosis: arthritis, RA, sjogren's, Lupus, rheumatologic flare. Data rn reviewed: vital signs, nurses notes, lab test result(s), radiologic studies, doppler, and as a result, I will discharge patient. Care significantly affected by the following chronic conditions: lupus, RA, sjogren's, chronic pain. Counseling: I had a detailed discussion with the patient and/or guardian regarding: the historical points, exam findings, and any diagnostic results supporting the discharge/admit diagnosis, lab results, radiology results, the need for outpatient follow up, to return to the emergency department if symptoms worsen or persist or if there are any questions or concerns that arise at home. Response to treatment: the patient's symptoms have mildly improved after treatment, and as a result, I will discharge patient. Special discussion: I discussed with the patient/guardian in detail that at this point there is no indication for admission to the hospital. It is understood, however, that if the symptoms persist or worsen the patient needs to return immediately for re-evaluation. 08/29 21:38 Order name: CBC with Diff; Complete Time: 22:37 rn 08/29 21:38 Order name: Basic Metabolic Panel; Complete Time: 22:37 rn 08/29 21:38 Order name: Extrem Venous W Compression Ruben US; Complete Time: 22:37 rn 08/29 21:38 Order name: IV Start; Complete Time: 21:59 rn Administered Medications: 22:08 Drug: SOLU-Medrol (methylPrednisoLONE) 125 mg Route: IVP; Site: right forearm; jb4 22:08 Drug: Ketorolac 30 mg Route: IVP; Site: right forearm; jb4 Disposition Summary: 08/29/22 23:59 Discharge Ordered Location: Home rn Problem: an ongoing problem rn Symptoms: have improved rn Condition: Stable rn Diagnosis - Polyarthritis, unspecified rn - Systemic lupus erythematosus, unspecified rn - Rheumatoid arthritis, unspecified rn Followup: rn - With: Private Physician - When: As needed - Reason: Recheck today's complaints, Re-evaluation by your physician Discharge Instructions: - Discharge Summary Sheet rn - Systemic Lupus Erythematosus, Adult rn - Neuropathic Pain rn - Rheumatoid Arthritis rn Forms: - Medication Reconciliation Form rn - Thank You Letter rn - Antibiotic internet marketing intern - Prescription Opioid Use rn Prescriptions: - Medrol (Gustavo) 4 mg Oral Tablets, Dose Pack - take 1 tablet by ORAL route as directed - follow package instructions; 1 rn packet; Refills: 0, Product Selection Permitted Signatures: Dispatcher [employer] Clinton Wilburn MD MD rn Bryson, James, RN RN jb4
--- NOTE | 2022-08-29 23:59 | ER ---
Nurse's Notes [facility] Name: Jaymie Schultz Age: 62 yrs Sex: Female : 1960 Arrival Date: 08/29/2022 Time: 21:03 Bed 7 Private MD: Diagnosis: Polyarthritis, unspecified;Systemic lupus erythematosus, unspecified;Rheumatoid arthritis, unspecified Presentation: 08/29 21:45 Chief complaint: Patient states: I am having swelling in both my feet and it has jb4 progressed up to my knees. I have already passed out from the pain. Coronavirus screen: At this time, the client does not indicate any symptoms associated with coronavirus-19. Ebola Screen: No symptoms or risks identified at this time. Initial Sepsis Screen: Does the patient meet any 2 criteria? No. Patient's initial sepsis screen is negative. Does the patient have a suspected source of infection? No. Patient's initial sepsis screen is negative. Risk Assessment: Do you want to hurt yourself or someone else? Patient reports no desire to harm self or others. Onset of symptoms was August 29, 2022. Transition of care: patient was not received from another setting of care. 21:45 Method Of Arrival: Wheelchair jb4 21:45 Acuity: HOLLEY 3 jb4 Historical: - Allergies: 21:48 METHOTREXATE AND DERIVATIVES; jb4 21:48 Sulfa (Sulfonamide Antibiotics); jb4 21:48 Levofloxacin; jb4 21:48 Iodine; jb4 - Home Meds: 21:48 zolpidem 12.5 mg Oral TbMP 1 tab once daily [Active]; alprazolam 1 mg Oral tab twice a jb4 day [Active]; diltiazem HCl 240 mg Oral cpER 1 cap once daily [Active]; cyclobenzaprine 10 mg Oral tab 1 tab 2 times per day [Active]; hydroxychloroquine 200 mg Oral tab 2 times per day [Active]; lisinopril 1 mg/mL Oral soln 20 mL once daily [Active]; meloxicam Oral [Active]; Prednisone Oral [Active]; Tramadol Oral [Active]; - PMHx: 21:48 A fib with RVR; Atrial Fib; CVA; Hypertension; Lupus; Rheumatoid Arthritis; sjorgens jb4 syndrome; - Immunization history:: Adult Immunizations up to date. - Social history:: Smoking status: Patient denies any tobacco usage or history of. - Family history:: not pertinent. - Hospitalizations: : No recent hospitalization is reported. Screenin/10 00:00 [facility] ED Fall Risk Assessment (Adult) History of falling in the last 3 months, jb4 including since admission Yes- single mechanical fall (1 pt) Confusion or Disorientation No (0 pts). Abuse screen: Denies threats or abuse. Nutritional screening: No deficits noted. Tuberculosis screening: No symptoms or risk factors identified. Assessment: 08/29 21:51 General: Appears in no apparent distress. uncomfortable, Behavior is calm, cooperative, jb4 appropriate for age. Pain: Complains of pain in right foot, left foot, right leg and left leg Pain does not radiate. Pain currently is 6 out of 10 on a pain scale. at worst was 10 out of 10 on a pain scale. Neuro: Level of Consciousness is awake, alert, obeys commands, Oriented to person, place, time, situation. Cardiovascular: Patient's skin is warm and dry. Respiratory: Airway is patent Respiratory effort is even, unlabored, Respiratory pattern is regular, symmetrical. GI: No signs and/or symptoms were reported involving the gastrointestinal system. : No signs and/or symptoms were reported regarding the genitourinary system. EENT: No signs and/or symptoms were reported regarding the EENT system. Derm: Skin is intact, Skin is pink, warm \T\ dry. Musculoskeletal: Circulation, motion, and sensation intact. Range of motion: intact in all extremities. 23:00 Reassessment: PT is resting in bed with eyes closed, respirations are even and jb4 unlabored with no s/s of pain or distress noted. 08/30 00:26 Reassessment: Patient appears in no apparent distress at this time. Patient and/or jb4 family updated on plan of care and expected duration. Pain level reassessed. Patient is alert, oriented x 3, equal unlabored respirations, skin warm/dry/pink. Patient states feeling better. Vital Signs: 08/29 21:45 BP 157 / 71; Pulse 92; Resp 18; Temp 98.8(O); Pulse Ox 95% on R/A; Weight 79.38 kg (R); jb4 Height 5 ft. 2 in. (157.48 cm) (R); Pain 6/10; 23:07 BP 143 / 73; Pulse 89; Resp 18; Pulse Ox 93% on R/A; jb4 08/30 00:00 BP 143 / 71; Pulse 92; Resp 16; Pulse Ox 96% on R/A; jb4 08/29 21:45 Body Mass Index 32.01 (79.38 kg, 157.48 cm) jb4 ED Course: 08/29 21:03 Patient arrived in ED. jj6 21:06 Clinton Smith MD is Attending Physician. rn 21:45 Bayron Patel, RN is Primary Nurse. jb4 21:48 Triage completed. jb4 21:48 Arm band placed on right wrist. jb4 21:59 Inserted saline lock: 22 gauge in right forearm, using aseptic technique. Blood ds4 collected. 22:29 Extrem Venous W Compression Ruben US In Process Unspecified. EDMS 08/30 00:00 Patient has correct armband on for positive identification. Bed in low position. Call jb4 light in reach. Side rails up X 1. Client placed on continuous cardiac and pulse oximetry monitoring. NIBP monitoring applied. 00:00 No provider procedures requiring assistance completed. IV discontinued, intact, jb4 bleeding controlled, No redness/swelling at site. Pressure dressing applied. Administered Medications: 08/29 22:08 Drug: SOLU-Medrol (methylPrednisoLONE) 125 mg Route: IVP; Site: right forearm; jb4 22:08 Drug: Ketorolac 30 mg Route: IVP; Site: right forearm; jb4 Medication: 08/30 00:00 VIS not applicable for this client. jb4 Outcome: 08/29 23:59 Discharge ordered by . rn 08/30 00:00 Discharged to home via wheelchair. jb4 Condition: stable Discharge instructions given to patient, Instructed on discharge instructions, follow up and referral plans. medication usage, Demonstrated understanding of instructions, follow-up care, medications, Prescriptions given X 1. 00:27 Patient left the ED. jb4 Signatures: Dispatcher [employer] [facility] Clinton Smith MD MD rn Swanson, Donovan ds4 Bayron Patel, RN RN jb4 Faye Peterson jj6
[2022-08-30 01:40] VITALS: TEMP 98.8
[2022-08-30 02:03] VITALS: BP 143/71; O2SAT 96
== END 2022-08-30 00:27 | disposition home or self-care (01) ==
LOC: ER 21:03
DX: M13.0 Polyarthritis, unspecified (principal); M32.9 Systemic lupus erythematosus, unspecified; M06.9 Rheumatoid arthritis, unspecified; I48.20 Chronic atrial fibrillation, unspecified; I10 Essential (primary) hypertension; Z88.1 Allergy status to other antibiotic agents; Z88.2 Allergy status to sulfonamides; Z91.048 Other nonmedicinal substance allergy status
CPT/HCPCS: 85025; 80048; 36415; 93970; 96375; 96374; 99284; J2930

== ENCOUNTER → 2023-08-15 | Emergency (ER) | payer BC ==
[~2023-08-15] MED LIST: LORazepam 2 MG/ML VIAL ONE; NA CHLORIDE 0.9% 500 ML ONE
[2023-08-15 23:26] LABS: Absolute Lymphocytes (CBC) 3.4 K/uL (0.7-4.9); Hematocrit 39.9 % (36.0-45.0); Lymphocytes % 33.1 % (15.3-44.8); MPV 10.1 fL (7.6-11.3); Platelets 151 thou/uL (152-406); RBC Red Blood Cell Count 4.64 M/uL (3.86-4.86)
[2023-08-15 23:33] LABS: Protime INR 1.07
[2023-08-15 23:46] LABS: ALT/SGPT 37 U/L (13-56); AST/SGOT 24 U/L (15-37); Albumin 3.9 g/dL (3.4-5.0); Alkaline Phosphatase 68 U/L (45-117); BUN Blood Urea Nitrogen 12 mg/dL (7-18); Bicarbonate 23 mEq/L (21-32); Bilirubin Total 0.3 mg/dL (0.2-1.0); Glomerular Filtration Rate 77 ml/min (=/>90); Glucose Level 160 mg/dL (74-106); Magnesium 1.9 mg/dL (1.6-2.4); Potassium 3.9 mEq/L (3.5-5.1); Protein, Total 7.3 g/dL (6.4-8.2); Sodium Level 138 mEq/L (136-145); Troponin High Sensitivity 3.8 pg/mL (<58.9)
[2023-08-15 23:53] LABS: Bilirubin Direct < 0.1 mg/dL (0-0.2); Bilirubin Indirect, Calculated ND mg/dL (0.2-0.8)
[2023-08-16 01:48] LABS: Specific Gravity 1.021 (1.005-1.030); Urine Bacteria None Seen /HPF (<20); Urine Bilirubin NEGATIVE (Negative); Urine Blood Negative (Negative); Urine Clarity Turbid (Clear); Urine Color Light-Yellow (Yellow); Urine Glucose NEGATIVE (Negative); Urine Mucus Slight /HPF (None Seen); Urine Protein 1+ (Negative); Urine RBC <5 /HPF (None Seen); Urine Urobilinogen Normal (Normal); Urine pH 5.5 (5.0-7.0)
[2023-08-16 01:54] LABS: Barbiturates NEGATIVE (NEGATIVE); Benzodiazepines POSITIVE (NEGATIVE); Cocaine NEGATIVE (NEGATIVE); METHAMPHETAM NEGATIVE (NEGATIVE); Methadone NEGATIVE (NEGATIVE); Opiates NEGATIVE (NEGATIVE); Phencyclidine NEGATIVE (NEGATIVE); THC Cannibis NEGATIVE (NEGATIVE)
--- NOTE | 2023-08-16 02:13 | EDPHYS ---
Physician Documentation [facility] Name: Jaymie Schultz Age: 63 yrs Sex: Female : 1960 Arrival Date: 08/15/2023 Time: 22:38 Bed 7 Private MD: ED Physician Troy Banks HPI: 08/15 23:20 This 63 yrs old Female presents to ER via Ambulatory with complaints of Palpitations. cp 23:20 The patient presents with a history of heart racing. Context: The symptoms occur at cp rest. 23:20 Onset: The symptoms/episode began/occurred 1 hour(s) ago. cp 23:20 Patient is a 63-year-old female with past medical history significant for A-fib, cp hypertension, lupus, rheumatoid arthritis and Sjogren's syndrome who presents to the emergency department with reported episode of heart palpitations that started while she was watching TV. She felt like her hands and feet went numb bilaterally, she felt like she was shaking all over and she could not speak. She presents with denying any chest pain but reports pain in low back. No abdominal pain and no syncopal or near syncopal episode. Patient reports she has been under increased stress lately and reports a history of anxiety. Took a Xanax prior to arrival without relief. Historical: - Allergies: 22:52 Iodine; rv 22:52 Levofloxacin; rv 22:52 METHOTREXATE AND DERIVATIVES; rv 22:52 Sulfa (Sulfonamide Antibiotics); rv - Home Meds: 22:58 alprazolam 1 mg Oral tab as needed [Active]; atorvastatin 20 mg oral tablet 1 tab daily cm10 [Active]; diltiazem HCl 240 mg Oral cpER 1 cap once daily [Active]; cyclobenzaprine 10 mg Oral tab 1 tab as needed [Active]; duloxetine 60 mg oral Capsule, Delayed Release Sprinkle 1 cap daily [Active]; hydroxychloroquine 200 mg Oral tab 2 times per day [Active]; hydroxyzine HCl 25 mg oral tablet 1 tab [Active]; lisinopril 20 mg oral tablet 1 tab daily [Active]; metformin 500 mg oral Tablet, Extended Release 24 hr 1 tab daily [Active]; pantoprazole 40 mg oral tablet, delayed release (enteric coated) 1 tab [Active]; Salagen (pilocarpine) 5 mg oral tablet [Active]; prednisone 10 mg oral tablet as needed for lupus flare [Active]; risedronate 150 mg oral tablet [Active]; - PMHx: 22:52 A fib with RVR; Atrial Fib; CVA; Hypertension; Lupus; Rheumatoid Arthritis; sjorgens rv syndrome; - PSHx: 22:52 Cholecystectomy; rv - Immunization history:: Adult Immunizations up to date. - Social history:: Smoking status: Patient denies any tobacco usage or history of. - Code Status:: Full code. ROS: 23:25 Cardiovascular: Positive for palpitations, cp 23:25 Constitutional: Negative for body aches, chills, fever, poor PO intake, cp 23:25 Eyes: Negative for injury, pain, redness, and discharge, cp 23:25 ENT: Negative for drainage from ear(s), ear pain, sore throat, difficulty swallowing, difficulty handling secretions, 23:25 Respiratory: Negative for cough, shortness of breath, wheezing, 23:25 Abdomen/GI: Negative for abdominal pain, vomiting, diarrhea, constipation, 23:25 Back: Positive for pain at rest, pain with movement, 23:25 : Negative for urinary symptoms, 23:25 Neuro: Positive for tingling, of the right hand, left hand, right foot and left foot, Negative for altered mental status, weakness, 23:25 All other systems are negative, Exam: 22:55 ECG was reviewed by the Attending Physician. cp 23:30 Constitutional: The patient appears in no acute distress, alert, awake, cp non-diaphoretic, non-toxic, well developed, well nourished, anxious, obese, 23:30 Head/Face: Normocephalic, atraumatic. cp 23:30 Eyes: Periorbital structures: appear normal, Pupils: equal, round, and reactive to light and accomodation, Extraocular movements: intact throughout, Conjunctiva: normal, Sclera: no appreciated abnormality, Lids and lashes: appear normal, bilaterally, 23:30 ENT: External ear(s): are unremarkable, Nose: is normal, Mouth: Lips: moist, Oral mucosa: pink and intact, moist, Posterior pharynx: is normal, airway is patent, no erythema, no exudate, 23:30 Neck: ROM/movement: is normal, is supple, without pain, no range of motions limitations, no meningismus, no nuchal rigidity, 23:30 Chest/axilla: Inspection: normal, Palpation: is normal, no crepitus, no tenderness, 23:30 Cardiovascular: Rate: tachycardic, Edema: is not appreciated, JVD: is not appreciated, 23:30 Respiratory: the patient does not display signs of respiratory distress, Respirations: normal, no use of accessory muscles, no retractions, labored breathing, is not present, Breath sounds: are clear throughout, no decreased breath sounds, no stridor, no wheezing, 23:30 Abdomen/GI: Inspection: abdomen appears normal, Palpation: abdomen is soft and non-tender, in all quadrants, 23:30 Neuro: Orientation: to person, place \T\ time. Mentation: is normal, Cerebellar function: is grossly normal, Motor: moves all fours, strength is normal, Sensation: no obvious gross deficits, Vital Signs: 22:48 BP 129 / 76; Pulse 101; Resp 20; Temp 98.1; Pulse Ox 97% ; Weight 97.52 kg; Height 5 rv ft. 2 in. ; 08/16 01:53 BP 118 / 97; Pulse 85; Pulse Ox 95% on R/A; jb4 08/15 22:48 Body Mass Index 39.32 (97.52 kg, 157.48 cm) rv Yvan Coma Score: 08/15 23:06 Eye Response: spontaneous(4). Motor Response: obeys commands(6). Verbal Response: la4 oriented(5). Total: 15. MDM: 22:57 Patient medically screened. 08/16 02:10 Data reviewed: vital signs, nurses notes, lab test result(s), EKG, radiologic studies, CT scan, plain films. 02:10 I considered the following discharge prescriptions or medication management in the emergency department Medications were administered in the Emergency Department. See MAR. Independent interpretation of the following test(s) in the Emergency Department EKG: See my EKG interpretation above. Care significantly affected by the following chronic conditions: Hypertension. Counseling: I had a detailed discussion with the patient and/or guardian regarding the historical points, exam findings, and any diagnostic results supporting the discharge/admit diagnosis, lab results, radiology results, to return to the emergency department if symptoms worsen or persist or if there are any questions or concerns that arise at home. Response to treatment: the patient's symptoms have markedly improved after treatment, and as a result, I will discharge patient. 08/15 23:15 Order name: Basic Metabolic Panel; Complete Time: 00:02 cp 08/16 00:02 Interpretation: Normal except: GLUC 160; GFR 77. cp 08/15 23:15 Order name: CBC with Diff; Complete Time: 00:02 cp 08/16 00:43 Interpretation: Normal except: PLT 151. cp 08/15 23:15 Order name: LFT's; Complete Time: 00:02 cp 08/15 23:15 Order name: Magnesium; Complete Time: 00:02 cp 08/15 23:15 Order name: PT-INR; Complete Time: 00:02 cp 08/15 23:15 Order name: Troponin HS; Complete Time: 00:02 cp 08/16 00:44 Interpretation: Reviewed. 08/15 23:15 Order name: UDS; Complete Time: 02:00 cp 08/16 02:00 Interpretation: Normal except: BZO POSITIVE. 08/15 23:15 Order name: Urinalysis W/Microscopic; Complete Time: 02:00 cp 08/16 02:00 Interpretation: Reviewed. 08/15 23:15 Order name: XRAY Chest (1 view) cp 08/15 23:19 Order name: CT Head Brain wo Cont cp 08/15 23:15 Order name: EKG; Complete Time: 23:16 cp 08/15 23:15 Order name: Cardiac monitoring; Complete Time: 23:19 cp 08/15 23:15 Order name: EKG - Nurse/Tech; Complete Time: 23:16 cp 08/15 23:15 Order name: IV Saline Lock; Complete Time: 23:16 cp 08/15 23:15 Order name: Labs collected and sent; Complete Time: 23:16 cp 08/15 23:15 Order name: O2 Per Protocol; Complete Time: 23:16 cp 08/15 23:15 Order name: O2 Sat Monitoring; Complete Time: 23:16 cp EC/26 22:55 Rate is 98 beats/min. Rhythm is regular. CO interval is normal. QRS interval is normal. cp QT interval is normal. T waves are Inverted. Interpreted by me. Reviewed by me. Administered Medications: 23:19 Drug: NS 0.9% IV 1000 ml IV at 500 ml/hr Per protocol Route: IV; Rate: 500 ml/hr; Site: la4 right forearm; 23:28 Drug: Ativan IVP 1 mg IVP once Route: IVP; Site: right forearm; la4 Disposition Summary: 08/16/23 02:12 Discharge Ordered Notes: Location: Home cp Problem: new cp Symptoms: have improved cp Condition: Stable cp Diagnosis - Palpitations cp - Anxiety disorder, unspecified cp - Paresthesia of skin cp Followup: cp - With: Private Physician - When: 2 - 3 days - Reason: Recheck today's complaints Discharge Instructions: - Discharge Summary Sheet cp - Palpitations cp - Paresthesia cp - Generalized Anxiety Disorder, Adult cp - Managing Anxiety, Adult cp Forms: - Medication Reconciliation Form cp - Thank You Letter cp - Antibiotic Education cp - Prescription Opioid Use cp - Patient Portal Instructions cp - Leadership Thank You Letter cp Prescriptions: - Vistaril 25 mg Oral capsule - take 1 capsule ORAL route every 6 hours As needed for anxiety; 30 capsule; cp Refills: 0, Product Selection Permitted Signatures: Dispatcher [employer] EDTN Troy Plascencia PA PA cp Salvatore Odom RN RN Karuna Benton RN RN cm10 Jaden Motta RN RN la4 Corrections: (The following items were deleted from the chart) 23:34 23:20 Head Brain W/ Wo Con+CT.RAD.BRZ ordered. [facility] [place] EDTN 08/17 02:20 08/15 23:20 Patient is a 63-year-old female with past medical history significant for cp A-fib, hypertension, lupus, rheumatoid arthritis and Sjogren's syndrome who presents to the emergency department with reported episode of heart palpitations that started while she was watching TV. She felt like her hands and feet went numb bilaterally, she felt like she was shaking all over and she could not speak. She presents with denying any chest pain but reports pain in low back. No abdominal pain and no syncopal or near syncopal episode. cp
--- NOTE | 2023-08-16 02:13 | ER ---
Nurse's Notes [facility] Name: Jaymie Schultz Age: 63 yrs Sex: Female : 1960 Arrival Date: 08/15/2023 Time: 22:38 Bed 7 Private MD: Diagnosis: Palpitations;Anxiety disorder, unspecified;Paresthesia of skin Presentation: 08/15 22:48 Chief complaint: Patient states: fingers and toes went numb and tingling, sudden onset, rv with palpitation, while watching tv, denies chest pain. came with severe lower back pain. uncontrollable shaking. Coronavirus screen: At this time, the client does not indicate any symptoms associated with coronavirus-19. Ebola Screen: No symptoms or risks identified at this time. Initial Sepsis Screen: Does the patient meet any 2 criteria? No. Patient's initial sepsis screen is negative. Does the patient have a suspected source of infection? No. Patient's initial sepsis screen is negative. Risk Assessment: Do you want to hurt yourself or someone else? Patient reports no desire to harm self or others. Onset of symptoms was August 15, 2023. 22:48 Method Of Arrival: Ambulatory rv 22:48 Acuity: HOLLEY 2 rv Triage Assessment: 22:52 General: Appears comfortable, Behavior is anxious. Pain: Complains of pain in back. rv Neuro: Level of Consciousness is awake, alert, obeys commands, Oriented to person, place, time, situation. Cardiovascular: Reports chest pain, palpitation Capillary refill < 3 seconds Patient's skin is warm and dry. Respiratory: Airway is patent Respiratory effort is even, unlabored. GI: No signs and/or symptoms were reported involving the gastrointestinal system. : No signs and/or symptoms were reported regarding the genitourinary system. Derm: Skin is intact. Historical: - Allergies: 22:52 Iodine; rv 22:52 Levofloxacin; rv 22:52 METHOTREXATE AND DERIVATIVES; rv 22:52 Sulfa (Sulfonamide Antibiotics); rv - Home Meds: 22:58 alprazolam 1 mg Oral tab as needed [Active]; atorvastatin 20 mg oral tablet 1 tab daily cm10 [Active]; diltiazem HCl 240 mg Oral cpER 1 cap once daily [Active]; cyclobenzaprine 10 mg Oral tab 1 tab as needed [Active]; duloxetine 60 mg oral Capsule, Delayed Release Sprinkle 1 cap daily [Active]; hydroxychloroquine 200 mg Oral tab 2 times per day [Active]; hydroxyzine HCl 25 mg oral tablet 1 tab [Active]; lisinopril 20 mg oral tablet 1 tab daily [Active]; metformin 500 mg oral Tablet, Extended Release 24 hr 1 tab daily [Active]; pantoprazole 40 mg oral tablet, delayed release (enteric coated) 1 tab [Active]; Salagen (pilocarpine) 5 mg oral tablet [Active]; prednisone 10 mg oral tablet as needed for lupus flare [Active]; risedronate 150 mg oral tablet [Active]; - PMHx: 22:52 A fib with RVR; Atrial Fib; CVA; Hypertension; Lupus; Rheumatoid Arthritis; sjorgens rv syndrome; - PSHx: 22:52 Cholecystectomy; rv - Immunization history:: Adult Immunizations up to date. - Social history:: Smoking status: Patient denies any tobacco usage or history of. - Code Status:: Full code. Screenin:54 [facility] ED Fall Risk Assessment (Adult) History of falling in the last 3 months, rv including since admission No falls in past 3 months (0 pts) Score/Fall Risk Level 0 - 2 = Low Risk Oriented to surroundings, Maintained a safe environment, Educated pt \\T\\ family on fall prevention, incl call for assistance when getting out of bed, Assessed \\T\\ reinforced patient's understanding of fall precautions. Abuse screen: Denies threats or abuse. Denies injuries from another. Nutritional screening: No deficits noted. Tuberculosis screening: No symptoms or risk factors identified. Assessment: 23:06 Reassessment: No changes from previously documented assessment. Patient and/or family la4 updated on plan of care and expected duration. Pain level reassessed. Patient is alert, oriented x 3, equal unlabored respirations, skin warm/dry/pink. Pt noted to be very anxious, talkative, at times noted to hold breath. States she has recently been under a lot of stress and that she was sitting at home watching TV when she became "worried". Pt told me personally upon arrival to room while changing that "I think I'm just scared." Also reports that her doctor recently refused to refill her xanax. General: Appears in no apparent distress. Behavior is anxious. Neuro: No deficits noted. Castillo Agitation-Sedation Scale (RASS): +1 Restless Level of Consciousness is awake, alert, obeys commands, Oriented to person, place, time, situation, Appropriate for age. Cardiovascular: No deficits noted. Reports chest pain, Denies shortness of breath, Heart tones S1 S2 Capillary refill < 3 seconds is brisk Patient's skin is warm and dry. Respiratory: No deficits noted. Airway is patent Trachea midline Respiratory effort is even, unlabored, Respiratory pattern is regular, symmetrical, Breath sounds are clear bilaterally. GI: No deficits noted. : No deficits noted. Derm: No deficits noted. Musculoskeletal: No deficits noted. 23:06 Reassessment: Pt states she is feeling better just by being here. Troy Plascencia RN la4 notified. 08/16 02:11 Reassessment: PA at bedside. jb4 02:18 Reassessment: Pending discharge paperwork from PA. jb4 Vital Signs: 08/15 22:48 BP 129 / 76; Pulse 101; Resp 20; Temp 98.1; Pulse Ox 97% ; Weight 97.52 kg; Height 5 rv ft. 2 in. ; 08/16 01:53 BP 118 / 97; Pulse 85; Pulse Ox 95% on R/A; jb4 08/15 22:48 Body Mass Index 39.32 (97.52 kg, 157.48 cm) rv Vitals: 08/15 23:06 Cardiac Rhythm Assessment Regular Sinus rhythm. la4 Winside Coma Score: 23:06 Eye Response: spontaneous(4). Motor Response: obeys commands(6). Verbal Response: la4 oriented(5). Total: 15. ED Course: 22:41 Patient arrived in ED. ag3 22:42 Troy Plascencia PA is PHCP. cp 22:42 Troy Banks MD is Attending Physician. cp 22:52 Triage completed. rv 22:52 Arm band placed on right wrist. rv 22:54 Patient has correct armband on for positive identification. Client placed on continuous rv cardiac and pulse oximetry monitoring. NIBP monitoring applied. 22:54 No provider procedures requiring assistance completed. rv 22:55 Jaden Motta, RN is Primary Nurse. la4 23:06 Provided Education on: Plan of care noted. la4 23:06 Inserted saline lock: 20 gauge in left forearm, using aseptic technique. la4 23:31 CT Head Brain wo Cont Sent. la4 23:31 XRAY Chest (1 view) Sent. la4 23:33 XRAY Chest (1 view) In Process Unspecified. EDMS 23:39 CT Head Brain wo Cont In Process Unspecified. EDMS 08/16 02:32 IV discontinued, intact, bleeding controlled, No redness/swelling at site. Pressure nw1 dressing applied. Administered Medications: 08/15 23:19 Drug: NS 0.9% IV 1000 ml IV at 500 ml/hr Per protocol Route: IV; Rate: 500 ml/hr; Site: la4 right forearm; 23:28 Drug: Ativan IVP 1 mg IVP once Route: IVP; Site: right forearm; la4 Medication: 22:54 VIS not applicable for this client. rv Outcome: 08/16 02:12 Discharge ordered by . cp 02:31 Discharged to home ambulatory, nw1 02:31 Condition: stable 02:31 Discharge instructions given to patient, Instructed on discharge instructions, follow up and referral plans. medication usage, Demonstrated understanding of instructions, follow-up care, medications, Prescriptions given X 1, 02:32 Patient left the ED. nw1 Signatures: Dispatcher [employer] EDMS Troy Plascencia PA PA cp Bryson, James, RN RN jb4 Salvatore Odom, RN RN Yancy Vidal Clarissa, RN RN cm10 Jaden Motta RN RN la4 Mara Thompson RN RN nw1
[2023-08-16 04:42] VITALS: BP 118/97; TEMP 98.1; O2SAT 95
--- NOTE | 2023-08-16 21:42 | RAD REPORT ---
EXAM DESCRIPTION: CT - Head Brain Wo Cont - 08/16/2023 7:35 am CLINICAL HISTORY: 63-year-old female with tingling of the lips. COMPARISON: 05/09/2021. TECHNIQUE: CT brain without contrast. This exam was performed according to our departmental dose opt imization program which includes use of automated exposure control, adjustment of the mA and/or kV ac cording to patient size and/or use of iterative reconstruction technique. FINDINGS: The ventricles, sulci, and cisterns are within normal limits. The frank-white matter diff erentiation is preserved. There is no mass effect, midline shift, intra- or extra-axial fluid colle ction/acute hemorrhage. The osseous structures are unremarkable. The paranasal sinuses and mastoi d air cells are clear. IMPRESSION: No acute intracranial abnormalities. Electronically signed by: Cate Mcgarry MD 08/15/2023 11:53 PM BARTENDER MANAGER Due to temporary technical issues with the PACS/Fluency reporting system, reports are being signed by the in house radiologists without review as a courtesy to insure prompt reporting. The interpreting radiologist is fully responsible for the content of the report.
--- NOTE | 2023-08-16 21:43 | RAD REPORT ---
EXAM DESCRIPTION: RAD - Chest Single View - 08/15/2023 11:32 pm CLINICAL HISTORY: PALPITATIONS TECHNIQUE: Frontal view of the chest. COMPARISON: No relevant prior studies available. FINDINGS: Lungs: Unremarkable. No consolidation. Pleural space: Unremarkable. No pneumothorax. Heart: Unremarkable. No cardiomegaly. Mediastinum: Unremarkable. Normal mediastinal contour. Bones/joints: Total reverse shoulder arthroplasty hardware on the left. Right humeral prosthesis. No acute fracture. IMPRESSION: No acute disease. Electronically signed by: Lj Vasquez MD 08/15/2023 11:[address]NA[address] Due to temporary technical issues with the PACS/Fluency reporting system, reports are being signed by the in house radiologists without review as a courtesy to insure prompt reporting. The interpreting radiologist is fully responsible for the content of the report.
== END ==
LOC: ER 22:38
DX: R00.2 Palpitations (principal); F41.9 Anxiety disorder, unspecified; R20.2 Paresthesia of skin; I10 Essential (primary) hypertension; I48.91 Unspecified atrial fibrillation; Z86.73 Personal history of transient ischemic attack (TIA), and cerebral infarction without residual deficits; Z88.2 Allergy status to sulfonamides; Z88.3 Allergy status to other anti-infective agents; Z88.8 Allergy status to other drugs, medicaments and biological substances; Z91.048 Other nonmedicinal substance allergy status
CPT/HCPCS: 93005; 85025; 80048; 36415; 83735; 85610; 80076; 84484; 70450; 71045; J7040

== ENCOUNTER 2024-07-14 13:34 | Emergency (ER) | payer BC ==
[2024-07-14 14:22] LABS: Absolute Eosinophils 0.1 K/uL (0-0.5); Absolute Lymphocytes (CBC) 2.3 K/uL (0.7-4.9); Absolute Monocytes 0.5 K/uL (0.1-1.3); Absolute Neutrophil 4.5 K/uL (1.8-8.0); Basophils % 0.6 % (0-1.3); Eosinophils % 1.2 % (0-4.4); Hemoglobin 14.7 g/dL (12.0-15.0); Lymphocytes % 30.4 % (15.3-44.8); MCH 29.6 pg (27.0-35.0); MCHC 32.7 g/dL (32.0-36.0); MCV 90.7 fL (80-100); MPV 12.2 fL (7.6-11.3); Monocytes % 6.8 % (3.3-12.3); Platelets 129 thou/uL (152-406); RBC Red Blood Cell Count 4.96 M/uL (3.86-4.86)
[2024-07-14 14:41] LABS: Anion Gap 10.9 mEq/L (5.0-15.0); BUN Blood Urea Nitrogen 12 mg/dL (7-18); Bicarbonate 24 mEq/L (21-32); Glomerular Filtration Rate 93 ml/min (=/>90); Glucose Level 123 mg/dL (74-106); Potassium 3.9 mEq/L (3.5-5.1); Sodium Level 137 mEq/L (136-145)
[2024-07-14 14:42] LABS: Troponin High Sensitivity < 3.0 pg/mL (<58.9)
[2024-07-14 15:02] LABS: SARS-CoV-2 Antigen CONTROL BLUE LINE VIS/BG OK; SARS-CoV-2 Antigen Rapid Res Negative (Negative)
[2024-07-14] MEDS ORDERED: KETAMINE HCL IN 0.9 % NACL 50 MG/5 ML SYRINGE IV ONE (15:41)
[2024-07-14] MEDS ORDERED: ONDANSETRON 4 MG/2 ML VIAL ONE (15:41)
[2024-07-14] MEDS ORDERED: NA CHLORIDE 0.9% 500 ML ONE (15:41)
--- NOTE | 2024-07-14 15:46 | RAD REPORT ---
EXAMINATION: ONE VIEW CHEST XR CLINICAL INDICATION: Female, 64 years old.,COUGH TECHNIQUE: Frontal chest projection is submitted. Examination is limited by patient positioning and t echnique. COMPARISON: 08/15/2023 FINDINGS: The lungs are hypoinflated but clear. No pneumothorax or sizable effusion. The heart is normal in si ze. Mediastinal contours are unremarkable. IMPRESSION: No acute intrathoracic abnormalities.
--- NOTE | 2024-07-14 15:58 | EDPHYS ---
Physician Documentation [facility] Name: Jaymie Schultz Age: 64 yrs Sex: Female : 1960 Arrival Date: 07/14/2024 Time: 13:34 Bed 4 Private MD: ED Physician Robinson Choe HPI: 07/14 13:53 This 64 yrs old Female presents to ER via Ambulatory with complaints of Chest ec2 Pain, Breathing Difficulty. 13:53 Patient arrives today for evaluation of chest pain. Reports she has been having ec2 decreased p.o. intake as well as some nausea. Patient reports no vomiting, no diarrhea. Reports she feels like she is dehydrated. Denies urinary complaints.. Historical: - Allergies: 13:39 Iodine; iw 13:39 Levofloxacin; iw 13:39 METHOTREXATE AND DERIVATIVES; iw 13:39 Sulfa (Sulfonamide Antibiotics); iw - PMHx: 13:39 CVA; A fib with RVR; Hypertension; Rheumatoid Arthritis; Lupus; sjorgens syndrome; iw - PSHx: 13:39 Cholecystectomy; iw - Immunization history:: Adult Immunizations not up to date. - Infectious Disease History:: Denies. - Social history:: Smoking status: Patient denies any tobacco usage or history of. ROS: 13:53 Constitutional: as per hpi ec2 Exam: 13:53 Constitutional: GEN: NAD Head: atraumatic Eyes: EOMI Ears: External ears are ec2 normal. CV: regular rate LUNGS: no respiratory distress ABD: non-distended SKIN: no evidence of rashes MSK: no evidence of trauma, reproducible chest wall TTP. Vital Signs: 13:37 BP 132 / 103; Pulse 95; Resp 19; Temp 96.8; Pulse Ox 100% on R/A; iw 14:30 BP 130 / 98; Pulse 77; Resp 18; Pulse Ox 99% on R/A; ph 16:01 BP 127 / 99; Pulse 82; Resp 18; Pulse Ox 100% on R/A; ph 17:00 BP 133 / 88; Pulse 85; Resp 16; Pulse Ox 93% on R/A; jb4 MDM: 13:41 Medical Screening Exam initiated ec2 13:53 Data reviewed: vital signs, nurses notes. ED course: Patient arrives today for chest ec2 pain as well as concern for dehydration. Examination is remarkable for reproducible chest wall TTP. Will obtain lab work, chest x-ray, dimer. Will give the patient ketamine for pain, Zofran for nausea as well as crystalloid for reported concern for dehydration.. 13:54 ED course: EKG independently reviewed and interpreted by me, shows normal sinus rhythm, ec2 rate 93, no acute ST segment elevations, intervals are nonactionable.. 15:56 ED course: On reassessment patient is well-appearing no acute distress. Will discharge ec2 to home, low suspicion for ACS or PE or dissection. Suspect musculoskeletal pain given reproducibility as well as worsened with movement. Return precautions given.. 07/14 13:42 Order name: Basic Metabolic Panel; Complete Time: 14:59 ec2 07/14 13:42 Order name: CBC with Diff; Complete Time: 14:59 ec2 07/14 13:42 Order name: Troponin HS; Complete Time: 14:59 ec2 07/14 13:42 Order name: Influenza Screen (a \T\ B); Complete Time: 15:19 ec2 07/14 13:42 Order name: SARS RAPID; Complete Time: 15:19 ec2 07/14 13:52 Order name: D-Dimer; Complete Time: 14:59 ec2 07/14 13:42 Order name: XRAY Chest (1 view); Complete Time: 15:49 ec2 07/14 13:42 Order name: Cardiac monitoring; Complete Time: 13:46 ec2 07/14 13:42 Order name: EKG - Nurse/Tech; Complete Time: 13:46 ec2 07/14 13:42 Order name: IV Saline Lock; Complete Time: 14:27 ec2 07/14 13:42 Order name: Labs collected and sent; Complete Time: 14:27 ec2 07/14 13:42 Order name: O2 Per Protocol; Complete Time: 13:46 ec2 07/14 13:42 Order name: O2 Sat Monitoring; Complete Time: 13:46 ec2 Administered Medications: 15:01 Drug: Ketamine IVP 10 mg IVP once Route: IVP; Site: left antecubital; ph 17:02 Follow up: Response: No adverse reaction; Pain is decreased ph 15:45 Drug: NS 0.9% IV 500 ml 500 ml IV at 1 bolus once; to be given as a bolus over 30 ph minutes Volume: 500 ml; Route: IV; Rate: 1 bolus; Site: left antecubital; 15:45 Drug: Ondansetron IVP 4 mg IVP once; over 2 minutes Route: IVP; Site: left antecubital; ph 17:02 Follow up: Response: No adverse reaction ph Disposition Summary: 07/14/24 15:57 Discharge Ordered Notes: Location: Home ec2 Condition: Stable ec2 Diagnosis - Chest Wall Pain ec2 Followup: ec2 - With: Private Physician - When: - Reason: Recheck today's complaints Discharge Instructions: - Discharge Summary Sheet ec2 - Chest Wall Pain, [id number] ec2 Forms: - Medication Reconciliation Form ec2 - Antibiotic Education ec2 - Prescription Opioid Use ec2 - Patient Portal Instructions ec2 - Leadership Thank You Letter ec2 Signatures: Dispatcher [employer] Patricia Mora, REBECCA FERNANDEZ iw Madelin Moss RN RN ph Daija, MD MITESH Bowers ec2 Corrections: (The following items were deleted from the chart) 13:42 13:42 BASIC METABOLIC PANEL+C.LAB.BRZ ordered. EDMS EDMS 13:42 13:42 CBC+H.LAB.BRZ ordered. EDMS EDMS 13:42 13:42 Troponin High Sensitivity+C.LAB.BRZ ordered. EDMS EDMS 13:42 13:42 Influenza Screen (A \T\ B)+BA.LAB.BRZ ordered. EDMS EDMS 13:42 13:42 SARS-COV-2 Antigen Rapid+I.LAB.BRZ ordered. EDMS EDMS 13:42 13:42 Chest Single View+RAD.RAD.BRZ ordered. EDMS EDMS 13:52 13:52 D-DIMER+COAG.LAB.BRZ ordered. EDMS EDMS
--- NOTE | 2024-07-14 15:58 | ER ---
Nurse's Notes [facility] Name: Jaymie Schultz Age: 64 yrs Sex: Female : 1960 Arrival Date: 07/14/2024 Time: 13:34 Bed 4 Private MD: Diagnosis: Chest Wall Pain Presentation: 07/14 13:37 Chief complaint: Patient states: chest pain X 5 days , pain under left breast and left iw arm, feels dizzy and clammy , hurt to breathe in, + fever and chills. Coronavirus screen: Client presents with at least one sign or symptom that may indicate coronavirus-19. Ebola Screen: No symptoms or risks identified at this time. Initial Sepsis Screen: Does the patient meet any 2 criteria? No. Patient's initial sepsis screen is negative. Does the patient have a suspected source of infection? No. Patient's initial sepsis screen is negative. Risk Assessment: Do you want to hurt yourself or someone else? Patient reports no desire to harm self or others. Onset of symptoms was July 09, 2024. 13:37 Method Of Arrival: Ambulatory iw 13:37 Acuity: HOLLEY 3 iw Historical: - Allergies: 13:39 Iodine; iw 13:39 Levofloxacin; iw 13:39 METHOTREXATE AND DERIVATIVES; iw 13:39 Sulfa (Sulfonamide Antibiotics); iw - PMHx: 13:39 CVA; A fib with RVR; Hypertension; Rheumatoid Arthritis; Lupus; sjorgens syndrome; iw - PSHx: 13:39 Cholecystectomy; iw - Immunization history:: Adult Immunizations not up to date. - Infectious Disease History:: Denies. - Social history:: Smoking status: Patient denies any tobacco usage or history of. Screenin:29 [facility] ED Fall Risk Assessment (Adult) History of falling in the last 3 months, ph including since admission No falls in past 3 months (0 pts) Confusion or Disorientation No (0 pts) Intoxicated or Sedated No (0 pts) Impaired Gait No (0 pts) Mobility Assist Device Used No (0 pt) Altered Elimination No (0 pt) Score/Fall Risk Level 0 - 2 = Low Risk Oriented to surroundings, Maintained a safe environment, Hourly rounding (assess needs \T\ fall precautionary measures) done. Abuse screen: Denies threats or abuse. Denies injuries from another. Nutritional screening: No deficits noted. Tuberculosis screening: No symptoms or risk factors identified. Assessment: 14:30 General: Appears in no apparent distress. comfortable, Behavior is calm, cooperative. ph Pain: Complains of pain in left lateral anterior chest and left breast Pain does not radiate. Quality of pain is described as sharp, Pain began 2-3 days ago. Neuro: Level of Consciousness is awake, alert, obeys commands, Oriented to person, place, time, situation, Reports dizziness. Cardiovascular: Capillary refill < 3 seconds in bilateral fingers Patient's skin is warm and dry. Cardiovascular: Reports chest pain, lightheadedness. Respiratory: GI: No signs and/or symptoms were reported involving the gastrointestinal system. Derm: Skin is pink, warm \T\ dry. Musculoskeletal: Circulation, motion, and sensation intact. Range of motion: intact in all extremities. 16:02 Reassessment: Patient appears in no apparent distress at this time. Patient and/or ph family updated on plan of care and expected duration. Pain level reassessed. Patient is alert, oriented x 3, equal unlabored respirations, skin warm/dry/pink. D/C pending completion of IV fluids. 17:45 Reassessment: Patient appears in no apparent distress at this time. Patient and/or jb4 family updated on plan of care and expected duration. Pain level reassessed. Patient is alert, oriented x 3, equal unlabored respirations, skin warm/dry/pink. Vital Signs: 13:37 BP 132 / 103; Pulse 95; Resp 19; Temp 96.8; Pulse Ox 100% on R/A; iw 14:30 BP 130 / 98; Pulse 77; Resp 18; Pulse Ox 99% on R/A; ph 16:01 BP 127 / 99; Pulse 82; Resp 18; Pulse Ox 100% on R/A; ph 17:00 BP 133 / 88; Pulse 85; Resp 16; Pulse Ox 93% on R/A; jb4 ED Course: 13:35 Patient arrived in ED. as 13:35 Robinson Choe MD is Attending Physician. ec2 13:39 Triage completed. iw 13:39 Arm band placed on. iw 13:40 Madelin Moss, RN is Primary Nurse. ph 14:10 Initial lab(s) drawn, by me, sent to lab. Inserted saline lock: 20 gauge in left ph antecubital area, using aseptic technique. Blood collected. Flushed with 10 mL NS. Patient maintains SpO2 saturation greater than 95% on room air. 14:17 EKG done, by ED staff. tm3 14:28 Basic Metabolic Panel Sent. ph 14:28 Troponin HS Sent. ph 14:28 SARS RAPID Sent. ph 14:28 Influenza Screen (a \T\ B) Sent. ph 14:29 Patient has correct armband on for positive identification. Placed in gown. Bed in low ph position. Call light in reach. Side rails up X 1. Client placed on continuous cardiac and pulse oximetry monitoring. NIBP monitoring applied. personnel monitor on. Door closed. Noise minimized. Warm blanket given. Pillow given. PO fluids given. 14:53 XRAY Chest (1 view) In Process Unspecified. EDMS 16:02 No provider procedures requiring assistance completed. ph 17:00 Provided Education on: discharge instructions.. jb4 17:00 IV discontinued, intact, bleeding controlled, No redness/swelling at site. Pressure jb4 dressing applied. Administered Medications: 15:01 Drug: Ketamine IVP 10 mg IVP once Route: IVP; Site: left antecubital; ph 17:02 Follow up: Response: No adverse reaction; Pain is decreased ph 15:45 Drug: NS 0.9% IV 500 ml 500 ml IV at 1 bolus once; to be given as a bolus over 30 ph minutes Volume: 500 ml; Route: IV; Rate: 1 bolus; Site: left antecubital; 15:45 Drug: Ondansetron IVP 4 mg IVP once; over 2 minutes Route: IVP; Site: left antecubital; ph 17:02 Follow up: Response: No adverse reaction ph Medication: 14:29 VIS not applicable for this client. ph Outcome: 15:57 Discharge ordered by . ec2 17:45 Discharged to home ambulatory, with family, jb4 17:45 Condition: stable 17:45 Discharge instructions given to patient, Instructed on discharge instructions, follow up and referral plans. Demonstrated understanding of instructions, follow-up care, 17:46 Patient left the ED. jb4 Signatures: Dispatcher [employer] EDGA WayneDeni guzmani tm3 Veronica Pradhan Irene, RN RN Madelin Moss RN RN Bayron Patel RN RN jb4 Robinson Choe MD MD ec2
[2024-07-14 17:59] VITALS: TEMP 96.8
[2024-07-14 18:12] VITALS: BP 133/88; O2SAT 93
--- NOTE | 2024-07-16 13:41 | EKG ---
Test Date: 2024-07-14 Test Time: 13:50:59 Investigative Research Specialist: TM MEASUREMENT RESULTS: Intervals: Rate: 93 AL: 142 QRSD: 70 QT: 346 QTc: 430 [place]: P: 23 AL: 142 QRS: 17 T: 43 INTERPRETIVE STATEMENTS: Normal sinus rhythm Normal ECG Compared to ECG 08/15/2023 22:47:14 ST (T wave) deviation no longer present Electronically Signed On 07-16-24 13:37:06 RADIO EQUIPMENT REPAIRER by Samuel Gustafson
== END 2024-07-14 17:46 | disposition home or self-care (01) ==
LOC: ER 13:34
DX: R07.89 Other chest pain (principal); R06.02 Shortness of breath; R11.0 Nausea; I10 Essential (primary) hypertension; I48.11 Longstanding persistent atrial fibrillation; M19.90 Unspecified osteoarthritis, unspecified site; M35.00 Sjogren syndrome, unspecified; Z88.2 Allergy status to sulfonamides; Z88.1 Allergy status to other antibiotic agents; Z91.048 Other nonmedicinal substance allergy status; Z86.73 Personal history of transient ischemic attack (TIA), and cerebral infarction without residual deficits; Z11.52 Encounter for screening for COVID-19
CPT/HCPCS: 93005; 85025; 80048; 36415; 85379; 84484; 87804 ×2; 71045; 96375; 96374; 99285; 87811; J2405; J7040

== ENCOUNTER 2024-09-05 12:42 | Emergency (ER) | payer BC ==
[2024-09-05 13:37] LABS: Specific Gravity 1.007 (1.005-1.030); Sqamous Epithelial <5 /HPF (None Seen); Urine Bacteria <20 /HPF (<20); Urine Bilirubin NEGATIVE (Negative); Urine Blood Negative (Negative); Urine Clarity Extremely Turbid (Clear); Urine Color Light-Yellow (Yellow); Urine Crystals Unidentified Few /HPF (None Seen); Urine Culture Reflex Order NOT NEEDED; Urine Glucose NEGATIVE (Negative); Urine Ketones NEGATIVE (Negative); Urine Microscopic Reflex YN ORDER UMIC; Urine Nitrite NEGATIVE (Negative); Urine Protein NEGATIVE (Negative); Urine Urobilinogen Normal (Normal); Urine WBC <5 /HPF (<5); Urine Yeast (Budding) Trace /HPF (None Seen)
--- NOTE | 2024-09-05 13:44 | RAD REPORT ---
EXAMINATION: CT ABDOMEN AND PELVIS WITHOUT CONTRAST CLINICAL INDICATION: Abdominal pain TECHNIQUE: CT abdomen and pelvis was performed, as per department protocol. IV contrast and oral was not administered.Axial, sagittal and coronal reconstructions were obtained. One or more of the following dose reduction techniques were used: Automated exposure control, adjustment of the mA and/o r kV according to the patient size, and/or iterative reconstruction. Unless otherwise specified, incidental findings do not require dedicated imaging follow-up. [id number]. COMPARISON: 2017 FINDINGS: The lack of intravenous and oral contrast limits evaluation of solid organs, vessels and bowel. 6 cm cyst extends off of the lateral aspect of the right kidney. It has enlarged. In 7 cm right renal cyst 4.6 cm left kidney mildly imaged. No hydronephrosis. Gastric band in place. Wall of the distal esophagus is thickened. No evidence of diverticulitis. Normal appendix. Hysterectomy. No adnexal mass.. Small inguinal hernias. Spondylosis lumbar spine res ults in spinal stenosis IMPRESSION: Bilateral renal cysts. Largest extends off of the right kidney measuring 6 cm
--- NOTE | 2024-09-05 13:45 | RAD REPORT ---
Procedure: Chest Single View HISTORY: Chest pain COMPARISON: 2023 FINDINGS: The lungs appear clear of acute infiltrate. No significant pleural effusion noted. The heart is normal size. IMPRESSION: No acute abnormality is displayed.
[2024-09-05] MEDS ORDERED: droPERidol 5 MG/2 ML VIAL ONE (14:07)
[2024-09-05] MEDS ORDERED: KETOROLAC 30 MG/ML INJ ONE (14:07)
[2024-09-05 14:22] LABS: Absolute Eosinophils 0.1 K/uL (0-0.5); Absolute Lymphocytes (CBC) 2.5 K/uL (0.7-4.9); Absolute Monocytes 0.5 K/uL (0.1-1.3); Absolute Neutrophil 5.9 K/uL (1.8-8.0); Basophils % 0.4 % (0-1.3); Eosinophils % 1.4 % (0-4.4); Hematocrit 46.2 % (36.0-45.0); Hemoglobin 15.9 g/dL (12.0-15.0); Lymphocytes % 27.4 % (15.3-44.8); MCH 30.6 pg (27.0-35.0); MCHC 34.5 g/dL (32.0-36.0); MCV 88.7 fL (80-100); MPV 11.1 fL (7.6-11.3); Monocytes % 5.6 % (3.3-12.3); Neutrophils % 65.2 % (41.7-73.7); Nucleated Red Blood Cells % 0.1 % (0-0); Platelets 126 thou/uL (152-406); Red Cell Distribution Width 13.2 % (12.1-15.2)
[2024-09-05 14:38] LABS: Albumin 4.1 g/dL (3.4-5.0); Anion Gap 7.9 mEq/L (5.0-15.0); Bilirubin Total 0.8 mg/dL (0.2-1.0); Potassium 3.9 mEq/L (3.5-5.1); Protein, Total 8.1 g/dL (6.4-8.2)
--- NOTE | 2024-09-05 14:52 | ER ---
Nurse's Notes [facility] Name: Jaymie Schultz Age: 64 yrs Sex: Female : 1960 Arrival Date: 09/05/2024 Time: 12:42 Bed 20 Private MD: Diagnosis: Chest Wall Pain Presentation: 09/05 13:02 Chief complaint: RUQ pain after being hit with shopping cart 5 days ago. Coronavirus hb screen: At this time, the client does not indicate any symptoms associated with coronavirus-19. Ebola Screen: No symptoms or risks identified at this time. Initial Sepsis Screen: Does the patient meet any 2 criteria? No. Patient's initial sepsis screen is negative. Does the patient have a suspected source of infection? No. Patient's initial sepsis screen is negative. Risk Assessment: Do you want to hurt yourself or someone else? Patient reports no desire to harm self or others. Onset of symptoms was September 01, 2024. 13:02 Method Of Arrival: Ambulatory hb 13:02 Acuity: HOLLEY 3 hb Triage Assessment: 14:24 Respiratory: Reports. mb9 Historical: - Allergies: 13:03 Iodine; hb 13:03 Levofloxacin; hb 13:03 METHOTREXATE AND DERIVATIVES; hb 13:03 Sulfa (Sulfonamide Antibiotics); hb - Immunization history:: Adult Immunizations up to date. - Infectious Disease History:: Denies. - Social history:: Smoking status: Patient denies any tobacco usage or history of. Screenin:23 [facility] ED Fall Risk Assessment (Adult) History of falling in the last 3 months, mb9 including since admission No falls in past 3 months (0 pts) Confusion or Disorientation No (0 pts) Intoxicated or Sedated No (0 pts) Impaired Gait No (0 pts) Mobility Assist Device Used No (0 pt) Altered Elimination No (0 pt) Score/Fall Risk Level 0 - 2 = Low Risk Oriented to surroundings, Maintained a safe environment, Educated pt \T\ family on fall prevention, incl call for assistance when getting out of bed. Abuse screen: Denies threats or abuse. Nutritional screening: No deficits noted. Tuberculosis screening: No symptoms or risk factors identified. Assessment: 14:22 General: Appears in no apparent distress. Behavior is calm, cooperative. Pain: mb9 Complains of pain in chest Pain radiates to left ribcage Pain currently is 10 out of 10 on a pain scale. Pain began 2-3 days ago. Aggravated by eating, drinking, increased activity, repositioning. Neuro: Castillo Agitation-Sedation Scale (RASS): 0 - Alert and Calm Level of Consciousness is awake, alert, obeys commands, Oriented to person, place, time, situation, Appropriate for age. Cardiovascular: Heart tones S1 S2 present Patient's skin is warm and dry. Respiratory: Airway is patent Respiratory effort is even, unlabored, Respiratory pattern is regular, symmetrical, Breath sounds are clear bilaterally. GI: No signs and/or symptoms were reported involving the gastrointestinal system. : No signs and/or symptoms were reported regarding the genitourinary system. EENT: No signs and/or symptoms were reported regarding the EENT system. Derm: Skin is pink, warm \T\ dry. Musculoskeletal: Range of motion: intact in all extremities. 15:07 Reassessment: Patient and/or family updated on plan of care and expected duration. Pain mb9 level reassessed. Patient is alert, oriented x 3, equal unlabored respirations, skin warm/dry/pink. Patient states feeling better. Patient states symptoms have improved. Vital Signs: 13:02 BP 154 / 96; Pulse 98; Resp 16; Temp 98; Pulse Ox 99% ; Pain 9/10; hb 15:06 BP 145 / 87; Pulse 74; Resp 16; Pulse Ox 100% on R/A; mb9 13:02 Pain Scale: Adult hb ED Course: 12:49 Patient arrived in ED. ra3 12:52 Robinson Choe MD is Attending Physician. ec2 13:03 Triage completed. hb 13:03 Arm band placed on. hb 13:26 Urinalysis w/ reflexes Sent. hb 13:27 CXR XRAY In Process Unspecified. EDMS 13:33 CT Abd/Pelvis - Without Contrast In Process Unspecified. EDMS 14:05 Porsha Dias RN is Primary Nurse. mb9 14:17 CBC with Diff Sent. cc6 14:17 CMP Sent. cc6 14:17 Lipase Sent. cc6 14:17 Initial lab(s) drawn, by me, sent to lab. Inserted saline lock: 20 gauge in right cc6 antecubital area, using aseptic technique. Blood collected. Flushed with 10 mL NS. 14:23 Bed in low position. Call light in reach. Side rails up X 1. Provided Education on: mb9 press call light if needing anything. Client placed on continuous cardiac and pulse oximetry monitoring. NIBP monitoring applied. 15:07 No provider procedures requiring assistance completed. IV discontinued, intact, mb9 bleeding controlled, No redness/swelling at site. Pressure dressing applied. Administered Medications: 14:18 Drug: TORadol - Ketorolac IVP 15 mg IVP once Route: IVP; Site: right antecubital; mb9 15:07 Follow up: Response: No adverse reaction mb9 14:22 Drug: Droperidol IVP 1.25 mg IVP once Route: IVP; Site: right antecubital; mb9 15:07 Follow up: Response: No adverse reaction mb9 Medication: 14:24 VIS not applicable for this client. mb9 Outcome: 14:51 Discharge ordered by . [email or web address] 15:07 Discharged to home ambulatory, mb9 15:07 Condition: stable 15:07 Discharge instructions given to patient, Instructed on discharge instructions, follow up and referral plans. Demonstrated understanding of instructions, follow-up care, medications, Prescriptions given X 1, 15:07 Patient left the ED. mb9 Signatures: Dispatcher [employer] EDDayna Russell RN RN hb Wilkerson, Mary Beth, RN RN mb9 Robinson Choe MD MD ec2 Brandee Acevedo 3 Mirna Chapin cc6
--- NOTE | 2024-09-05 14:52 | EDPHYS ---
Physician Documentation [facility] Name: Jaymie Schultz Age: 64 yrs Sex: Female : 1960 Arrival Date: 09/05/2024 Time: 12:42 Bed 20 Private MD: ED Physician Robinson Choe HPI: 09/05 13:05 This 64 yrs old Female presents to ER via Ambulatory with complaints of ec2 Breathing Difficulty, Flank Pain - Left, Nausea. 13:06 Patient arrives today with complaints of whole body pain, nausea, occasional ec2 lightheadedness, reports that she is been having pain in the left rib for the past several months, worse after she was bumped into by a shopping cart. Reports nausea as well. Denies any vomiting. Reports also cough symptoms. Historical: - Allergies: 13:03 Iodine; hb 13:03 Levofloxacin; hb 13:03 METHOTREXATE AND DERIVATIVES; hb 13:03 Sulfa (Sulfonamide Antibiotics); hb - Immunization history:: Adult Immunizations up to date. - Infectious Disease History:: Denies. - Social history:: Smoking status: Patient denies any tobacco usage or history of. ROS: 13:06 Constitutional: as per hpi ec2 Exam: 13:06 Constitutional: GEN: NAD Head: atraumatic Eyes: EOMI Ears: External ears are ec2 normal. CV: regular rate LUNGS: no respiratory distress ABD: non-distended SKIN: no evidence of rashes MSK: no evidence of trauma, no bruising appreciated in the abdomen or thorax. Vital Signs: 13:02 BP 154 / 96; Pulse 98; Resp 16; Temp 98; Pulse Ox 99% ; Pain 9/10; hb 15:06 BP 145 / 87; Pulse 74; Resp 16; Pulse Ox 100% on R/A; mb9 13:02 Pain Scale: Adult hb MDM: 13:06 Data reviewed: vital signs, nurses notes. ED course: Patient arrives today for ec2 evaluation of whole body pain along with nausea. Examination is revealing for normal cardiac individual with appropriate blood pressures. Will obtain CT scan of the abdomen pelvis, chest x-ray, lab work. Will give patient Toradol for her pain as well as droperidol for her nausea. Suspect rib contusion, possible abdominal wall contusion, doubt splenic injury or liver injury.. 13:18 Medical Screening Exam initiated ec2 14:26 ED course: CBC is reassuring. Urine is noninfectious appearing. CT abdomen pelvis shows ec2 no acute intra-abdominal process, renal cysts noted. Chest x-ray shows no acute traumatic process. Pending metabolic profile and lipase.. 14:48 ED course: Metabolic profile and lipase are nonactionable.. ec2 14:51 ED course: On reassessment patient is well-appearing no acute distress, will discharge ec2 home with return precautions given.. 09/05 13:05 Order name: CBC with Diff; Complete Time: 14:26 ec2 09/05 13:05 Order name: CMP; Complete Time: 14:48 ec2 09/05 13:05 Order name: Lipase; Complete Time: 14:48 ec2 09/05 13:05 Order name: Urinalysis w/ reflexes; Complete Time: 14:26 ec2 09/05 13:05 Order name: CT Abd/Pelvis - Without Contrast; Complete Time: 14:26 ec2 09/05 13:05 Order name: CXR XRAY; Complete Time: 14:26 ec2 09/05 13:05 Order name: IV Saline Lock; Complete Time: 14:17 ec2 09/05 13:05 Order name: Labs collected and sent; Complete Time: 14:17 ec2 Administered Medications: 14:18 Drug: TORadol - Ketorolac IVP 15 mg IVP once Route: IVP; Site: right antecubital; mb9 15:07 Follow up: Response: No adverse reaction mb9 14:22 Drug: Droperidol IVP 1.25 mg IVP once Route: IVP; Site: right antecubital; mb9 15:07 Follow up: Response: No adverse reaction mb9 Disposition Summary: 09/05/24 14:51 Discharge Ordered Notes: Location: Home ec2 Condition: Stable ec2 Diagnosis - Chest Wall Pain ec2 Followup: ec2 - With: Private Physician - When: - Reason: Re-evaluation by your physician Discharge Instructions: - Discharge Summary Sheet ec2 - Chest Wall Pain, [id number] ec2 Forms: - Medication Reconciliation Form ec2 - Antibiotic Education ec2 - Prescription Opioid Use ec2 - Patient Portal Instructions ec2 - Leadership Thank You Letter ec2 Prescriptions: - methocarbamol 500 mg Oral tablet - take 1 tablet ORAL route 4 times per day; 20 tablet; Refills: 0, Product ec2 Selection Permitted Signatures: Dispatcher [employer] Dayna Smlal RN RN Porsha Dias RN RN mb9 Robinson Choe MD MD ec2
[2024-09-05 15:50] VITALS: TEMP 98
[2024-09-05 15:57] VITALS: BP 145/87; O2SAT 100
== END 2024-09-05 15:07 | disposition home or self-care (01) ==
LOC: ER 12:42
DX: R07.89 Other chest pain (principal); R11.0 Nausea
CPT/HCPCS: 85025; 81001; 36415; 83690; 80053; 74176; 71045; J1790; 96374; 96375; 99284

== ENCOUNTER 2025-05-02 18:47 | Emergency (ER) | payer BC ==
[2025-05-02] MEDS ORDERED: KETOROLAC 30 MG/ML INJ ONE ×2 (19:36→23:07)
[2025-05-02] MEDS ORDERED: ONDANSETRON 4 MG/2 ML VIAL ONE (19:36)
[2025-05-02] MEDS ORDERED: NA CHLORIDE 0.9% 1,000 ML ONE (19:36)
[2025-05-02 19:39] LABS: Absolute Lymphocytes (CBC) 2.8 K/uL (0.7-4.9); Hematocrit 44.7 % (36.0-45.0); Hemoglobin 14.7 g/dL (12.0-15.0); MCH 29.6 pg (27.0-35.0); MCHC 33.0 g/dL (32.0-36.0); MCV 89.7 fL (80-100); MPV 11.1 fL (7.6-11.3); Nucleated RBC Absolute Count 0.0 (0-0); Nucleated Red Blood Cells % 0.1 % (0-0); RBC Red Blood Cell Count 4.98 M/uL (3.86-4.86); White Blood Count 13.10 thou/uL (4.3-10.9)
[2025-05-02 19:47] LABS: PT Prothrombin Time 12.4 SECONDS (10-13.0); Protime INR 1.1
[2025-05-02 20:00] LABS: ALT/SGPT 28.0 U/L (13-56); AST/SGOT 18.0 U/L (15-37); Albumin 3.9 g/dL (3.4-5.0); Albumin/Globulin Ratio 1.1 (1.1-1.8); Alkaline Phosphatase 68.0 U/L (45-117); Anion Gap 11.1 mEq/L (5.0-15.0); BUN Blood Urea Nitrogen 9.0 mg/dL (7-18); Bilirubin Indirect, Calculated 0.5 mg/dL (0.2-0.8); Globulin 3.4 g/dL (2.3-3.5); Glucose Level 97.0 mg/dL (74-106); Magnesium 1.9 mg/dL (1.6-2.4); NT PRO-BNP 17.0 pg/mL (<125); Potassium 4.1 mEq/L (3.5-5.1); Troponin High Sensitivity 3.7 pg/mL (<58.9)
--- NOTE | 2025-05-02 20:50 | RAD REPORT ---
EXAMINATION: ONE VIEW CHEST XR CLINICAL INDICATION: CHEST PAIN TECHNIQUE: Frontal chest projection is submitted. Examination is limited by patient positioning and t echnique. COMPARISON: 08/26/2024 FINDINGS: Interstitial markings are mildly prominent, slightly asymmetric on the left. This has a generally chr onic appearance similar to prior study. The heart is upper limit of normal in size. No displaced fractures identified. Bilateral shoulder arthroplasties. IMPRESSION: No acute intrathoracic abnormalities.
--- NOTE | 2025-05-02 20:54 | RAD REPORT ---
EXAMINATION: XR LEFT HIP CLINICAL INDICATION: . PAIN TECHNIQUE: Multiple views of the left hip were obtained. COMPARISON: No prior exam. FINDINGS: No fracture, dislocation or AVN. Mild arthritic changes.
--- NOTE | 2025-05-02 20:55 | RAD REPORT ---
EXAMINATION: XR RIGHT FOOT CLINICAL INDICATION: Female, 65 years old. PAIN TECHNIQUE: Multiple views of the right foot were obtained. COMPARISON: No prior exam. FINDINGS: No evidence of acute fracture or dislocation. Postsurgical hardware second metatarsal head . Hardware also present proximal phalanx of the great toe. Previous bunionectomy noted. Moderate plantar calcaneal spur.
--- NOTE | 2025-05-02 20:57 | RAD REPORT ---
EXAMINATION: XR RIGHT KNEE CLINICAL INDICATION: Female, 65 years old. PAIN TECHNIQUE: Multiple views of the right knee were obtained. COMPARISON: No prior exam. FINDINGS: Mild tricompartmental osteoarthritis. No acute fracture or dislocation. No joint effusion.
[2025-05-02 21:07] LABS: Blood Morphology Comment NOTED (NOT SEEN); White Blood Cell Scan OK (OK)
[2025-05-02 21:08] LABS: Target Cells 1+
--- NOTE | 2025-05-02 21:16 | RAD REPORT ---
EXAM: CT brain without contrast HISTORY: TRAUMA COMPARISON: 08/15/2023 TECHNIQUE: Multiple contiguous axial images were obtained and a CT of the brain without contrast. Sag ittal and coronal reformats were performed. One or more of the following dose reduction techniques were used: Automated exposure control, adjust ment of the mA and/or kV according to patient size, and/or iterative reconstruction. FINDINGS: No evidence of hydrocephalus, intracranial hemorrhage, or extra-axial fluid collection. The brain is normal in morphology. No evidence of midline shift or areas of brain edema. The calvarium is intact. The visualized paranasal sinuses and mastoid air cells are essentially clear . IMPRESSION: No evidence of acute intracranial abnormality.
--- NOTE | 2025-05-02 21:19 | RAD REPORT ---
EXAMINATION: CT ABDOMEN AND PELVIS WITHOUT CONTRAST CLINICAL INDICATION: diarrhea;Abd pain TECHNIQUE: CT abdomen and pelvis was performed, without IV contrast, as per department protocol. Axia l, sagittal and coronal reconstructions were obtained. One or more of the following dose reduction techniques were used: Automated exposure control, adjustment of the mA and kV according to the patien t size, and iterative reconstruction. Unless otherwise specified, incidental findings do not require dedicated imaging follow-up. COMPARISON: 10/03/2024 FINDINGS: The lack of intravenous contrast limits the sensitivity of this exam for evaluation of solid visceral organs, vascular structures, and retroperitoneum. LOWER CHEST: The visualized lung bases are clear. LIVER:Normal in size and contour. No focal lesion. Cholecystectomy clips. SPLEEN: Normal size. No focal lesion. PANCREAS: No mass, ductal dilation, or aquiles-pancreatic fluid. ADRENALS: Normal; no mass. KIDNEYS AND URETERS: Normal size and contour. No hydronephrosis. Multiple bilateral renal cysts, samira gn in appearance, largest on the right measuring 6 cm. URINARY BLADDER: Normal contour. GASTROINTESTINAL TRACT: No evidence of bowel obstruction, significant free fluid, free air or abscess . Gastric banding procedure. Mild sigmoid diverticulosis. APPENDIX: Normal appendix. LYMPH NODES: No lymphadenopathy. MUSCULOSKELETAL: Mild multilevel spinal degenerative changes. IMPRESSION: No acute abnormalities in the abdomen or pelvis, with evaluation limited by lack of IV contrast.
--- NOTE | 2025-05-02 22:47 | ER ---
Nurse's Notes [facility] Name: Jaymie Schultz Age: 65 yrs Sex: Female : 1960 Arrival Date: 05/02/2025 Time: 18:47 Bed 18 Private MD: Diagnosis: Diarrhea, unspecified;Syncope Near Presentation: 05/02 19:01 Chief complaint: Patient states: DIARRHEA FOR 1 WEEK, SYNCOPAL EPISODE WITH POSSIBLE br2 LOC TODAY. PT C/O RIGHT KNEE, LEFT RIBS, HEADACHE. Coronavirus screen: Client denies travel out of the [place] in the last 14 days. Ebola Screen: Patient denies exposure to infectious person. Mechanism of Injury: resulted from a fall, from a standing position. Initial Sepsis Screen: Does the patient meet any 2 criteria? No. Patient's initial sepsis screen is negative. Does the patient have a suspected source of infection? No. Patient's initial sepsis screen is negative. Risk Assessment: Do you want to hurt yourself or someone else? Patient reports no desire to harm self or others. 19:01 Method Of Arrival: Wheelchair br2 19:01 Acuity: HOLLEY 3 br2 Triage Assessment: 19:01 General: Appears in no apparent distress. uncomfortable, Behavior is calm, cooperative. br2 Pain: Complains of pain in lateral aspect of right knee Pain currently is 8 out of 10 on a pain scale. Historical: - Allergies: 19:04 Iodine; br2 19:04 Levofloxacin; br2 19:04 METHOTREXATE AND DERIVATIVES; br2 19:04 Sulfa (Sulfonamide Antibiotics); br2 - PMHx: 19:04 A fib with RVR; CVA; Hypertension; Lupus; Rheumatoid Arthritis; sjorgens syndrome; br2 Atrial Fib; - PSHx: 19:04 Cholecystectomy; br2 - Immunization history:: Adult Immunizations not up to date. - Infectious Disease History:: Denies. - Social history:: Smoking status: Patient denies any tobacco usage or history of. Patient/guardian denies using alcohol, street drugs. Screenin:15 [facility] ED Fall Risk Assessment (Adult) History of falling in the last 3 months, me1 including since admission Yes- physiologic fall (2 pts) Confusion or Disorientation No (0 pts) Intoxicated or Sedated No (0 pts) Impaired Gait No (0 pts) Mobility Assist Device Used No (0 pt) Altered Elimination No (0 pt) Score/Fall Risk Level 0 - 2 = Low Risk Maintained a safe environment, Provided non-skid footwear, Hourly rounding (assess needs \T\ fall precautionary measures) done. Abuse screen: Denies threats or abuse. Nutritional screening: No deficits noted. Tuberculosis screening: No symptoms or risk factors identified. Assessment: 19:15 General: Appears uncomfortable, well groomed, well developed, Behavior is calm, me1 cooperative, appropriate for age, Reports DIARRHEA FOR 1 WEEK, SYNCOPAL EPISODE WITH POSSIBLE LOC TODAY. PT C/O RIGHT KNEE, LEFT RIBS, HEADACHE. Pain: Complains of pain in left lateral anterior chest and right leg and lateral aspect of right knee Pain does not radiate. Pain currently is 8 out of 10 on a pain scale. Quality of pain is described as aching, Pain began suddenly, Is continuous. Neuro: Level of Consciousness is awake, alert, obeys commands, Oriented to person, place, time, situation, Appropriate for age. Neuro: Reports a syncopal episode. Cardiovascular: Patient's skin is warm and dry. Respiratory: Respiratory: Airway is patent Respiratory effort is even, unlabored, Respiratory pattern is regular, symmetrical. GI: Reports diarrhea. : No signs and/or symptoms were reported regarding the genitourinary system. EENT: No signs and/or symptoms were reported regarding the EENT system. Derm: Skin is intact, is healthy with good turgor, Skin is normal. Musculoskeletal: Reports pain in left lateral anterior chest and right leg and lateral aspect of right knee. Injury Description: DIARRHEA FOR 1 WEEK, SYNCOPAL EPISODE WITH POSSIBLE LOC TODAY. PT C/O RIGHT KNEE, LEFT RIBS, HEADACHE. 23:27 Reassessment: Patient appears in no apparent distress at this time. Patient and/or bm8 family updated on plan of care and expected duration. Pain level reassessed. Patient is alert, oriented x 3, equal unlabored respirations, skin warm/dry/pink. Patient denies pain at this time. Patient states feeling better. Patient states symptoms have improved. Vital Signs: 19:01 BP 120 / 88; Pulse 88; Resp 18; Temp 97.1; Pulse Ox 100% ; Weight 79.38 kg; Height 5 br2 ft. 2 in. ; Pain 8/10; 20:00 BP 112 / 69; Pulse 64; Resp 13; Pulse Ox 100% ; me1 21:00 BP 127 / 75; Pulse 73; Resp 16; Pulse Ox 100% ; me1 21:30 BP 120 / 83; Pulse 75; Resp 15; Pulse Ox 100% ; me1 23:27 BP 129 / 93; Pulse 74; Resp 17; Temp 97; Pulse Ox 98% ; Pain 0/10; bm8 19:01 Body Mass Index 32.01 (79.38 kg, 157.48 cm) br2 19:01 Pain Scale: Adult br2 23:27 Pain Scale: Adult bm8 Yvan Coma Score: 19:01 Eye Response: spontaneous(4). Motor Response: obeys commands(6). Verbal Response: br2 oriented(5). Total: 15. 23:27 Eye Response: spontaneous(4). Motor Response: obeys commands(6). Verbal Response: bm8 oriented(5). Total: 15. 05/03 00:57 Eye Response: spontaneous(4). Motor Response: obeys commands(6). Verbal Response: sb4 oriented(5). Total: 15. ED Course: 05/02 18:51 Patient arrived in ED. im 18:55 Dorcas Ramirez PA-C is PHCP. sb4 18:55 Clinton Smith MD is Attending Physician. sb4 19:01 Arm band placed on right wrist. br2 19:06 Triage completed. br2 19:15 Patient has correct armband on for positive identification. Bed in low position. Call me1 light in reach. Side rails up X2. Provided Education on: POC. Verbalized understanding.. Client placed on continuous cardiac and pulse oximetry monitoring. NIBP monitoring applied. petroleum supply specialist on. Pulse ox on. NIBP on. 19:15 No provider procedures requiring assistance completed. me1 19:24 Shakila Hong, RN is Primary Nurse. me1 19:34 Basic Metabolic Panel Sent. me1 19:34 CBC with Diff Sent. me1 19:34 LFT's Sent. me1 19:34 Magnesium Sent. me1 19:34 NT PRO-BNP Sent. me1 19:34 PT-INR Sent. me1 19:34 Troponin HS Sent. me1 19:34 Initial lab(s) drawn, by ut, sent to lab. Inserted saline lock: 22 gauge in right me1 forearm, using aseptic technique. 19:39 EKG done, by senior quality technician. reviewed by Dorcas Ramirez PA-C. ts3 20:33 XRAY Chest (1 view) In Process Unspecified. EDMS 20:33 Hip Left 2 View XRAY In Process Unspecified. EDMS 20:33 Knee Right 3 View XRAY In Process Unspecified. EDMS 20:33 Foot Right 3 View XRAY In Process Unspecified. EDMS 20:38 Head Brain Wo Cont CT In Process Unspecified. EDMS 20:38 CT Abd/Pelvis - Without Contrast In Process Unspecified. EDMS 23:27 IV discontinued, intact, bleeding controlled, No redness/swelling at site. Pressure bm8 dressing applied. Administered Medications: 19:35 Not Given (Other Intervention Used): morphineor iv 4 mg IVP once over 4 mins sb4 19:43 Drug: NS 0.9% IV 1000 ml IV at 1 bolus Per protocol; to be given as a bolus over 60 me1 minutes Route: IV; Rate: 1 bolus; Site: right forearm; 23:29 Follow up: Response: No adverse reaction; IV Status: Completed infusion bm8 19:43 Drug: Ondansetron IVP 4 mg IVP once; over 2 minutes Route: IVP; Site: right forearm; me1 20:22 Follow up: Response: No adverse reaction; Nausea is decreased me1 19:43 Drug: Ketorolac IVP 15 mg IVP once Route: IVP; Site: right forearm; me1 20:23 Follow up: Response: No adverse reaction; Pain is decreased me1 23:27 Drug: Ketorolac IVP 15 mg IVP once Route: IVP; Site: right forearm; bm8 23:29 Follow up: Response: No adverse reaction bm8 Medication: 19:15 VIS not applicable for this client. me1 Outcome: 22:47 Discharge ordered by . sb4 23:30 Discharged to home ambulatory, bm8 23:30 Condition: stable 23:30 Discharge instructions given to patient, family, Instructed on discharge instructions, follow up and referral plans. Demonstrated understanding of instructions, follow-up care, Prescriptions given X 2, 23:30 Patient left the ED. bm8 Signatures: Dispatcher [employer] Dorcas Rodriguez PA-C PA-C sb4 Gwendolyn Osborne Michelle, RN RN me1 Liborio Murguia RN RN bm8 Karin Weaver RN RN br2 Terri Mera ts3 Corrections: (The following items were deleted from the chart) 19:06 19:01 Pulse 88bpm; Resp 18bpm; Pulse Ox 100%; Temp 97.1F; 79.38 kg; Height 5 ft. 2 in.; br2 BMI: 32.0; Pain 8/10, Adult; br2 19:44 19:01 Chief complaint: Patient states: DIARRHEA FOR 1 WEEK, SYNCOPAL EPISODE WITH me1 POSSIBLE LOC TODAY. PT C/O RIGHT KNEE, LEFT RIBS, HEADACHE br2 23:30 23:27 Ketorolac IVP 15 mg IVP in left antecubital bm8 bm8
--- NOTE | 2025-05-02 22:47 | EDPHYS ---
Physician Documentation [facility] Name: Jaymie Schultz Age: 65 yrs Sex: Female : 1960 Arrival Date: 05/02/2025 Time: 18:47 Bed 18 Private MD: ED Physician Clinton Smith HPI: 05/03 00:55 This 65 yrs old Female presents to ER via Wheelchair with complaints of Head sb4 Injury-Adult, Fall Injury, dehydration. 00:55 Patient states that she has been experiencing abdominal cramping and diarrhea for about sb4 a week now. States that today she got very weak while in the kitchen and possibly had a syncopal episode. She states that she hurt her right knee during the fall. States that she is feeling a little "shaky "now but is feeling okay otherwise, just wants to make sure that everything is okay. She does believe that she is dehydrated as well. Historical: - Allergies: 05/02 19:04 Iodine; br2 19:04 Levofloxacin; br2 19:04 METHOTREXATE AND DERIVATIVES; br2 19:04 Sulfa (Sulfonamide Antibiotics); br2 - PMHx: 19:04 A fib with RVR; CVA; Hypertension; Lupus; Rheumatoid Arthritis; sjorgens syndrome; br2 Atrial Fib; - PSHx: 19:04 Cholecystectomy; br2 - Immunization history:: Adult Immunizations not up to date. - Infectious Disease History:: Denies. - Social history:: Smoking status: Patient denies any tobacco usage or history of. Patient/guardian denies using alcohol, street drugs. ROS: 05/03 00:55 Constitutional: Negative for fever, chills, and weight loss, sb4 Abdomen/GI: Positive for nausea, diarrhea, abdominal cramps, MS/extremity: Positive for pain, of the right knee, All other systems are negative, Exam: 00:57 Head/Face: Normocephalic, atraumatic. Eyes: Extra-ocular motions intact. Periorbital sb4 areas with no swelling, redness, or edema. ENT: Mucous membranes moist. Cardiovascular: Regular rate and rhythm with a normal S1 and S2. Respiratory: No increased work of breathing, no retractions or nasal flaring. Abdomen/GI: Soft, non-tender, no distension. Skin: Warm, dry with normal turgor. Normal color with no rashes, no lesions, and no evidence of cellulitis. MS/ Extremity: Pulses equal, no cyanosis. Neurovascular intact. Full, normal range of motion. Neuro: Awake and alert, GCS 15, oriented to person, place, time, and situation. Motor strength 5/5 in all extremities. Sensory grossly intact. 00:57 Constitutional: The patient appears in no acute distress, alert, awake, Vital Signs: 05/02 19:01 BP 120 / 88; Pulse 88; Resp 18; Temp 97.1; Pulse Ox 100% ; Weight 79.38 kg; Height 5 br2 ft. 2 in. ; Pain 8/10; 20:00 BP 112 / 69; Pulse 64; Resp 13; Pulse Ox 100% ; me1 21:00 BP 127 / 75; Pulse 73; Resp 16; Pulse Ox 100% ; me1 21:30 BP 120 / 83; Pulse 75; Resp 15; Pulse Ox 100% ; me1 23:27 BP 129 / 93; Pulse 74; Resp 17; Temp 97; Pulse Ox 98% ; Pain 0/10; bm8 19:01 Body Mass Index 32.01 (79.38 kg, 157.48 cm) br2 19:01 Pain Scale: Adult br2 23:27 Pain Scale: Adult bm8 Yvan Coma Score: 19:01 Eye Response: spontaneous(4). Motor Response: obeys commands(6). Verbal Response: br2 oriented(5). Total: 15. 23:27 Eye Response: spontaneous(4). Motor Response: obeys commands(6). Verbal Response: bm8 oriented(5). Total: 15. 05/03 00:57 Eye Response: spontaneous(4). Motor Response: obeys commands(6). Verbal Response: sb4 oriented(5). Total: 15. MDM: 05/02 19:01 Medical Screening Exam initiated sb4 05/03 00:57 Differential diagnosis: Gastroenteritis, dehydration, colitis, hypokalemia, acute sb4 kidney failure, close head injury, sprain, contusion, fracture. Data reviewed: vital signs, nurses notes, lab test result(s), EKG, radiologic studies, CT scan, plain films, and as a result, I will discharge patient. Consideration of Admission/Observation Escalation of care including admission/observation considered. Historians other than the Patient: Daughter/Son: daughter. Care significantly affected by the following chronic conditions: Hypertension. Counseling: I had a detailed discussion with the patient and/or guardian regarding the historical points, exam findings, and any diagnostic results supporting the discharge/admit diagnosis, lab results, radiology results, the need for outpatient follow up, for definitive care, to return to the emergency department if symptoms worsen or persist or if there are any questions or concerns that arise at home. Special discussion: Based on the patient's Hx, exam, and Dx evaluation, there is no indication for emergent surgery or inpatient Tx. It is understood by the patient/guardian that if the Sx's persist or worsen they need to return immediately for re-evaluation. 05/02 19:21 Order name: Basic Metabolic Panel; Complete Time: 20:00 sb4 05/02 19:21 Order name: CBC with Diff; Complete Time: 21:12 sb4 05/02 19:21 Order name: LFT's; Complete Time: 20:00 sb4 05/02 19:21 Order name: Magnesium; Complete Time: 20:00 sb4 05/02 19:21 Order name: NT PRO-BNP; Complete Time: 20:00 sb4 05/02 19:21 Order name: PT-INR; Complete Time: 19:50 sb4 05/02 19:21 Order name: Troponin HS; Complete Time: 20:00 sb4 05/02 21:08 Order name: CBC Smear Scan; Complete Time: 21:12 EDMS 05/02 19:21 Order name: XRAY Chest (1 view); Complete Time: 20:52 sb4 05/02 19:23 Order name: Head Brain Wo Cont CT; Complete Time: 21:16 sb4 05/02 19:23 Order name: Hip Left 2 View XRAY; Complete Time: 20:55 sb4 05/02 19:23 Order name: Knee Right 3 View XRAY; Complete Time: 20:59 sb4 05/02 19:23 Order name: Foot Right 3 View XRAY; Complete Time: 20:59 sb4 05/02 19:23 Order name: CT Abd/Pelvis - Without Contrast; Complete Time: 21:20 sb4 05/02 19:21 Order name: Cardiac monitoring; Complete Time: 19:39 sb4 05/02 19:21 Order name: EKG - Nurse/Tech; Complete Time: 19:39 sb4 05/02 19:21 Order name: IV Saline Lock; Complete Time: 19:34 sb4 05/02 19:21 Order name: Labs collected and sent; Complete Time: 19:34 sb4 05/02 19:21 Order name: O2 Per Protocol; Complete Time: 19:34 sb4 05/02 19:21 Order name: O2 Sat Monitoring; Complete Time: 19:34 sb4 05/02 21:38 Order name: PO challenge; Complete Time: 22:03 sb4 EC/13 19:39 Rate is 72 beats/min. Rhythm is regular, Normal Sinus Rhythm. MA interval is normal at sb4 144 msec. QRS interval is normal at 94 msec. QT interval is normal at 379 msec. No Q waves. T waves are Normal. No ST changes noted. Clinical impression: No evidence of ischemia. Interpreted by me. Reviewed by me. Administered Medications: 19:35 Not Given (Other Intervention Used): morphineor iv 4 mg IVP once over 4 mins sb4 19:43 Drug: NS 0.9% IV 1000 ml IV at 1 bolus Per protocol; to be given as a bolus over 60 me1 minutes Route: IV; Rate: 1 bolus; Site: right forearm; 23:29 Follow up: Response: No adverse reaction; IV Status: Completed infusion bm8 19:43 Drug: Ondansetron IVP 4 mg IVP once; over 2 minutes Route: IVP; Site: right forearm; me1 20:22 Follow up: Response: No adverse reaction; Nausea is decreased me1 19:43 Drug: Ketorolac IVP 15 mg IVP once Route: IVP; Site: right forearm; me1 20:23 Follow up: Response: No adverse reaction; Pain is decreased me1 23:27 Drug: Ketorolac IVP 15 mg IVP once Route: IVP; Site: right forearm; bm8 23:29 Follow up: Response: No adverse reaction bm8 Disposition: 05/03 06:59 Co-signature as Attending Physician, Clinton Smith MD I reviewed the patient's care rn provided by the Advanced Practice Provider and agree with the diagnosis and treatment plan. Disposition Summary: 05/02/25 22:47 Discharge Ordered Notes: Location: Home sb4 Problem: new sb4 Symptoms: have improved sb4 Condition: Stable sb4 Diagnosis - Diarrhea, unspecified sb4 - Syncope Near sb4 Followup: sb4 - With: Emergency Department - When: As needed - Reason: Trouble breathing, Worsening of condition Discharge Instructions: - Discharge Summary Sheet sb4 - Food Choices to Help Relieve Diarrhea, Adult sb4 - Near-Syncope sb4 Forms: - Patient Portal Instructions sb4 - Leadership Thank You Letter sb4 Prescriptions: - ketorolac 10 mg Oral tablet - take 1 tablet ORAL route every 6 hours as needed for pain; maximum total sb4 duration of 5 days from all oral, intranasal, or parenteral formulations; 12 tablet; Refills: 0, Product Selection Permitted - ondansetron 4 mg Oral Tablet,disintegrating - take 1 tablet ORAL route every 6 hours as needed for nausea and vomiting; 12 sb4 tablet; Refills: 0, Product Selection Permitted Signatures: Dispatcher [employer] EDMS Clinton Smith MD MD rn Brown, Sophia, PA-C PA-C sb4 Shakila Hong RN RN me1 Liborio Murguia RN RN bm8 Karin Weaver, RN RN br2 Corrections: (The following items were deleted from the chart) 05/02 19:22 19:22 BASIC METABOLIC PANEL+C.LAB.BRZ ordered. EDMS EDMS 19:22 19:22 CBC+H.LAB.BRZ ordered. EDMS EDMS 19:22 19:22 HEPATIC FUNCTION+C.LAB.BRZ ordered. EDMS EDMS 19:22 19:22 MAGNESIUM+C.LAB.BRZ ordered. EDMS EDMS 19:22 19:22 PROBNP+C.LAB.BRZ ordered. EDMS EDMS 19:22 19:22 PROTIME (+INR)+COAG.LAB.BRZ ordered. EDMS EDMS 19:22 19:22 Troponin High Sensitivity+C.LAB.BRZ ordered. EDMS EDMS 19:22 19:22 Chest Single View+RAD.RAD.BRZ ordered. EDMS EDMS 19:24 19:24 Hip Left 2 View+RAD.RAD.BRZ ordered. EDMS EDMS 19:24 19:24 Knee Right 3 View+RAD.RAD.BRZ ordered. EDMS EDMS 19:24 19:24 Foot Right 3 View+RAD.RAD.BRZ ordered. EDMS EDMS 19:24 19:24 Abdomen Pelvis Wo Con+CT.RAD.BRZ ordered. EDMS EDMS
[2025-05-03 09:25] VITALS: BP 129/93; TEMP 97; O2SAT 98
== END 2025-05-02 23:30 | disposition home or self-care (01) ==
LOC: ER 18:47
DX: S09.90XA Unspecified injury of head, initial encounter (principal); S89.91XA Unspecified injury of right lower leg, initial encounter; R55 Syncope and collapse; R19.7 Diarrhea, unspecified; W18.39XA Other fall on same level, initial encounter; Y93.9 Activity, unspecified; Y92.9 Unspecified place or not applicable; I10 Essential (primary) hypertension; M06.9 Rheumatoid arthritis, unspecified; I48.11 Longstanding persistent atrial fibrillation; Z86.73 Personal history of transient ischemic attack (TIA), and cerebral infarction without residual deficits; M35.00 Sjogren syndrome, unspecified
CPT/HCPCS: 96361; 93005; 85025; 80048; 36415; 83735; 85610; 80076; 84484; 83880; 70450; 74176; 71045; 73502; 73630; 73562; 96375; 96374; 99285; J1885 ×2; J2405; J7030